=== PATIENT | female | born 1990 | race Caucasian/White ===

== ENCOUNTER 2022-07-24 20:27 | Emergency (ER) | payer MEDICAID, SELFPAY ==
[2022-07-24 20:28] VITALS: BP 134/83; PULSE 95; RESP 16; TEMP 37.3; O2SAT 95; BMI 34.9
[2022-07-24 20:50] LABS: Coronavirus 19, PCR Not Detected (NotDetected); Influenza A, PCR Not Detected (NotDetected); Influenza B, PCR Not Detected (NotDetected)
[2022-07-24 21:02] LABS: Strep Scrn Group A (Rapid) Negative (Negative)
--- NOTE | 2022-07-24 21:31 | HMH.EDURI ---
Discharge Plan Disposition Patient Disposition: Home, Self-Care Prescriptions Prescriptions: New cephalexin [cephalexin] 500 mg capsule 500 mg PO TID Qty: 21 0RF Clinical Impressions Clinical Impression: Otitis media Instructions Patient Instructions: DI for Ear Pain-Adult Discharge ED Provider: Alpesh (ED)Esequiel URI/Sore Throat HPI General Chief Complaint: Upper Respiratory Infection Stated Complaint: QUINONES, Ears Sore throat Time Seen by Provider: 07/24/22 21:31 Mode of Arrival: Ambulatory Source of Information: Patient and Medical Record Limitations: No Limitations Description of Symptoms (Recalled from ER Triage Doc. by RN): pt c/o Quinonse,lt ear pain, congestion sore thorat History of Present Illness HPI Narrative: uri sx and lt ear pain over the last few days - MD Complaint: sore throat, nasal congestion and other (ear pain) Onset (ago): day(s) Duration: intermittent Severity: moderate Able to tolerate fluids by mouth: Yes Context: sick contacts Associated symptoms: denies other symptoms Treatments prior to arrival: none Related Data Previous Rx's Medication Instructions Recorded cephalexin 500 mg capsule 500 mg PO TID #21 caps 07/24/22 Allergies Allergy/AdvReac Type Severity Reaction Status Date / Time peanut Allergy Verified 07/24/22 20:47 [facility] Disclaimer: The information contained in this section may have been updated after the patient was seen, as this information can be updated by other users. Social History Smoking Status: Never smoker alcohol intake: never current occupational status: employed Travel in the last 8 weeks: None ROS Obtained: Yes All systems reviewed & no additional complaints except as documented Physical Exam General General appearance: alert Head Head exam: normocephalic Eye Eye exam: Present PERRL and EOMI ENT ENT exam: Present mucous membranes moist Expanded ENT Exam TM/Canal exam: Left TM: erythema and effusion Throat exam: Present tonsillomegaly; Absent R peritonsillar mass or L peritonsillar mass Neck Neck exam: Present trachea midline Respiratory Respiratory exam: Present normal lung sounds bilaterally; Absent respiratory distress Cardiovascular Cardiovascular exam: Present regular rate Abdominal Exam Abdominal exam: Present soft Extremities Exam Extremities exam: Present full ROM Neurological Exam Neurological exam: Present alert, oriented X3 and CN II-XII intact; Absent motor sensory deficit Psychiatric Psychiatric exam: Present normal affect Skin Skin exam: Absent rash Medical Decision Making Medical Records Medical records reviewed: Yes I reviewed the patient's medical records. Christopher Inquiry Pt receiving controlled substance: No Vital Signs: 07/24/22 20:28 Temperature 99.1 F Temperature Source Oral Pulse Rate [Right] 95 H Respiratory Rate 16 Blood Pressure [Right Arm] 134/83 Blood Pressure Mean [Right Arm] 100 02 Sat by Pulse Oximetry 95 Lab Data Lab results reviewed: Yes I reviewed the patient's lab results. Lab Results 07/24/22 20:46: Group A Strep Rapid Negative 07/24/22 20:46: SARS-CoV-2 (PCR) Not detected, Influenza A Untype (PCR) Not detected, Influenza Type B (PCR) Not detected Orders (Tests/Meds): ORDERS Category Date Time Status Rapid PCR Covid and Flu A/B Stat Lab 07/24/22 20:46 Completed Rapid Strep Scrn Group A [Strep Scrn Group A (Rapid)] Lab 07/24/22 20:46 Completed Stat Strep Screen Confirmation Stat Micro 07/24/22 20:46 Received Medical Decision Narrative: pt with ear infection and has stable exam - no rash - will treat at this time Critical Care Time Critical Care Time Critical Care Time: No Attestation: On , the high probability of a clinically significant, sudden or life threatening deterioration of the following system(s) required my full and direct attention, intervention and personal management. The time I documented below is in addition to time
[2022-07-24 21:48] VITALS: BP 129/87; PULSE 91; RESP 16; TEMP 37.3; O2SAT 95
== END 2022-07-24 22:06 | disposition home or self-care (01) ==
LOC: ER 22:05
PROVIDERS: Emergency Provider Emergency Medicine
DX: R51.9 Headache, unspecified (principal); H66.90 Otitis media, unspecified, unspecified ear; J02.9 Acute pharyngitis, unspecified
CPT/HCPCS: 87430; 87635; 87636; 99283; 99284; C9803; U0003; U0005

== ENCOUNTER 2022-07-27 18:53 | Emergency (ER) | payer MEDICAID, SELFPAY ==
[2022-07-27 19:15] VITALS: BP 123/90; PULSE 83; RESP 20; TEMP 36.8; O2SAT 98; BMI 34.9
--- NOTE | 2022-07-27 19:18 | EXP.UTC ---
Discharge Plan Disposition Patient Disposition: Home, Self-Care Condition: Good Prescriptions Prescriptions: New methylprednisolone 4 mg Tablets,Dose Pack 4 mg PO DIRECTED Qty: 21 0RF Referrals Follow up/Referrals: Provider,Referral, MD [Primary Care Provider] - See instructions Activity Restrictions/Add. Instructions Additional Instructions/Restrictions: Drink plenty of fluids. Take tylenol or ibuprofen for pain or fever. Take the medications as directed. Follow up with your regular doctor. GO TO THE ER FOR ANY WORSENING SYMPTOMS Clinical Impressions Clinical Impression: Hand, foot and mouth disease Stand Alone Forms Stand Alone Forms: Work/School Release Instructions Patient Instructions: Hand, Foot, and Mouth Disease Discharge ED [place] [facility] [place] General Stated complaint: rash Time Seen by Provider: 07/27/22 19:18 History of Present Illness Provider Complaint: She states that for the past 2 days she has had a painful rash on her hands and feet. She also has lesions around her mouth and a sore throat. Her child currently has similar symptoms. Related Data Previous Rx's Medication Instructions Recorded methylprednisolone 4 mg tablets in 4 mg PO DIRECTED #21 tabs 07/27/22 a dose pack Allergies Allergy/AdvReac Type Severity Reaction Status Date / Time peanut Allergy Verified 07/24/22 20:47 [facility] Disclaimer: The information contained in this section may have been updated after the patient was seen, as this information can be updated by other users. Social History Smoking Status: Never smoker alcohol intake: never current occupational status: employed Travel in the last 8 weeks: None ROS Obtained: Yes All systems reviewed & no additional complaints except as documented Constitutional Constitutional: Denies chills and Denies fever(s) Eyes Eyes: Denies eye discharge ENT Ears, Nose, Mouth, and Throat: Denies dizziness, Denies otalgia and Denies sore throat Cardiovascular Cardiovascular: Denies chest pain Respiratory Respiratory: Denies shortness of breath, Denies chest congestion, Denies cough, Denies stridor and Denies wheezing Gastrointestinal Gastrointestingal: Denies nausea or vomiting Musculoskeletal Musculoskeletal: Reports system reviewed and no additional complaints, except as documented and Denies arthralgias Integumentary/Breasts Skin/Breast: Reports as per HPI and Reports rash Neurologic Neurologic: Denies dizziness and Denies paresthesias Allergic/Immunologic Allergic/Immunologic: Denies wheezing Physical Exam General General appearance: alert and in no apparent distress Head Head exam: atraumatic, normocephalic and normal inspection Eye Eye exam: Present normal appearance, PERRL and EOMI ENT ENT exam: Present normal exam, normal oropharynx, mucous membranes moist, TM's normal bilaterally and normal external ear exam Neck Neck exam: Present normal inspection, full ROM and trachea midline; Absent meningismus or lymphadenopathy Chest Chest inspection: Present normal inspection and symmetric chest wall rise; Absent tenderness Respiratory Respiratory exam: Present normal lung sounds bilaterally; Absent respiratory distress Cardiovascular Cardiovascular exam: Present regular rate and normal rhythm; Absent JVD Abdominal Exam Abdominal exam: Present soft and normal bowel sounds; Absent distention, tenderness or guarding Extremities Exam Extremities exam: Present normal inspection, full ROM and normal capillary refill; Absent calf tenderness Back Exam Back exam: Present normal inspection; Absent tenderness Neurological Exam Neurological exam: Present alert and oriented X3 Psychiatric Psychiatric exam: Present normal affect and normal mood Skin Skin exam: Present rash Lymphatic Lymphatic Findings: no adenopathy Medical Decision Making Medical Records Medical records
[2022-07-27 19:26] VITALS: BP 123/90; PULSE 83; RESP 20; TEMP 36.8; O2SAT 98
== END 2022-07-27 19:31 | disposition home or self-care (01) ==
PROVIDERS: Emergency Provider Nurse Practitioner Family
DX: B08.4 Enteroviral vesicular stomatitis with exanthem (principal)
CPT/HCPCS: 99204; 99212; G0463

== ENCOUNTER 2022-12-28 14:40 | Emergency (ER) | payer MEDICAID, SELFPAY ==
[2022-12-28 15:25] VITALS: BP 152/86; PULSE 77; RESP 20; TEMP 36.9; O2SAT 95; BMI 42.5
--- NOTE | 2022-12-28 15:28 | EXP.UTC ---
Discharge Plan Disposition Patient Disposition: Home, Self-Care Condition: Good Prescriptions Prescriptions: New clobetasol 0.05 % solution 1 applic topical BID 14 Days Qty: 50 1RF triamcinolone acetonide 0.1 % cream 1 applic topical BID PRN (Reason: itching) Qty: 80 0RF prednisone 10 mg tablet 10 mg PO DIRECTED 9 Days Qty: 21 0RF Rx Instructions: Take 4 tablets daily for 3 days, then take 2 tablets daily for 3 days, then take 1 tablet daily for 3 days, then stop. No Action methylprednisolone 4 mg Tablets,Dose Pack 4 mg PO DIRECTED Qty: 21 0RF Referrals Follow up/Referrals: Provider,Referral, MD [Primary Care Provider] - See instructions Activity Restrictions/Add. Instructions Additional Instructions/Restrictions: Don't start the oral steroids until tomorrow. Don't put the topical steroids (triamcinolone) on your face or your groin. Follow up with your regular doctor. GO TO THE ER FOR ANY WORSENING SYMPTOMS OR CONCERNS Clinical Impressions Clinical Impression: Atopic dermatitis Instructions Patient Instructions: Eczema, DI for Atopic Dermatitis-Adult Discharge ED Provider: Surya Jha [facility] [place] General Stated complaint: breaking out all over body Time Seen by Provider: 12/28/22 15:28 History of Present Illness Provider Complaint: She has generalized rash on her body and scalp. She states that she is having a flare up of her atopic dermatitis. Related Data Previous Rx's Medication Instructions Recorded methylprednisolone 4 mg tablets in 4 mg PO DIRECTED #21 tabs 07/27/22 a dose pack clobetasol 0.05 % scalp solution 1 applic topical BID 2 weeks #50 mL 12/28/22 prednisone 10 mg tablet 10 mg PO DIRECTED 9 days #21 12/28/22 tabs triamcinolone acetonide 0.1 % 1 applic topical BID PRN itching 12/28/22 topical cream #80 grams Allergies Allergy/AdvReac Type Severity Reaction Status Date / Time peanut Allergy Verified 07/24/22 20:47 [facility] Disclaimer: The information contained in this section may have been updated after the patient was seen, as this information can be updated by other users. 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 (Updated 12/28/22 @ 15:52 by Surya Jha APRN) Anemia Anxiety Depression Hypertension Social History Smoking Status: Never smoker alcohol intake: never current occupational status: employed Travel in the last 8 weeks: None ROS Obtained: Yes All systems reviewed & no additional complaints except as documented Constitutional Constitutional: Denies chills and Denies fever(s) Eyes Eyes: Denies eye discharge ENT Ears, Nose, Mouth, and Throat: Denies dizziness, Denies otalgia and Denies sore throat Cardiovascular Cardiovascular: Denies chest pain Respiratory Respiratory: Denies shortness of breath, Denies chest congestion, Denies cough, Denies stridor and Denies wheezing Gastrointestinal Gastrointestingal: Denies nausea or vomiting Musculoskeletal Musculoskeletal: Reports system reviewed and no additional complaints, except as documented and Denies arthralgias Integumentary/Breasts Skin/Breast: Reports as per HPI and Reports rash Neurologic Neurologic: Denies dizziness and Denies paresthesias Allergic/Immunologic Allergic/Immunologic: Denies wheezing Physical Exam General General appearance: alert and in no apparent distress Head Head exam: atraumatic, normocephalic and normal inspection Eye Eye exam: Present normal appearance, PERRL and EOMI ENT ENT exam: Present normal exam, normal oropharynx, mucous membranes moist, TM's normal bilaterally and normal external ear exam Neck Neck exam: Present normal inspection, full ROM and trachea midline; Absent meningismus or lymphadenopathy Chest Chest inspection: Present normal inspection and symmetric chest wall rise; Absent tenderness Respiratory Respiratory exam: Present normal lung sounds bilaterally; Absent respi
[2022-12-28 15:55] VITALS: BP 152/86; PULSE 77; RESP 20; TEMP 36.9; O2SAT 95
== END 2022-12-28 16:02 | disposition home or self-care (01) ==
PROVIDERS: Emergency Provider Nurse Practitioner Family
DX: L20.9 Atopic dermatitis, unspecified (principal); I10 Essential (primary) hypertension; F41.9 Anxiety disorder, unspecified; F32.A Depression, unspecified
CPT/HCPCS: 96372; 99212; 99214; G0463

== ENCOUNTER 2023-01-09 13:07 | Emergency (ER) | payer MEDICAID, SELFPAY ==
[2023-01-09 13:15] VITALS: BP 131/88; PULSE 78; RESP 18; TEMP 36.7; O2SAT 98; BMI 38.0
--- NOTE | 2023-01-09 13:27 | EXP.UTC ---
Discharge Plan Disposition Patient Disposition: Home, Self-Care Condition: Good Prescriptions Prescriptions: New prednisone [prednisone] 20 mg tablet 20 mg PO BID Qty: 10 0RF Eucrisa 2 % ointment 1 applic topical DAILY Qty: 60 0RF No Action clobetasol 0.05 % solution 1 applic topical BID 14 Days Qty: 50 1RF triamcinolone acetonide 0.1 % cream 1 applic topical BID PRN (Reason: itching) Qty: 80 0RF Referrals Follow up/Referrals: Provider,Referral, MD [Primary Care Provider] - See instructions Clinical Impressions Clinical Impression: Atopic dermatitis Qualifiers: Atopic dermatitis type: other Qualified Code(s): L20.89 - Other atopic dermatitis Instructions Patient Instructions: DI for Atopic Dermatitis-Adult Discharge [facility] [facility] [place] General Stated complaint: cough, rash Mode of Arrival: Ambulatory Source of Information: Patient Limitations: No Limitations Time Seen by Provider: 01/09/23 13:27 Description of Symptoms (Recalled from Triage Doc. by RN): Pt has rash all over body. She stated that she has productive cough. HEENT Symptoms (Recalled from RN notes): Yes Resp Symptoms (Recalled from RN notes): No Skin Symptoms (Recalled from RN notes): Yes MS Symptoms (Recalled from RN notes): No Functional Status (Recalled from RN notes): n/a History of Present Illness Provider Complaint: 32 yr old female presents for cough and rash all over her body. pt states she has atopic dermatitis and she has these flares freq. 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 Related Data Previous Rx's Medication Instructions Recorded clobetasol 0.05 % scalp solution 1 applic topical BID 2 weeks #50 mL 12/28/22 triamcinolone acetonide 0.1 % 1 applic topical BID PRN itching 12/28/22 topical cream #80 grams crisaborole 2 % topical ointment 1 applic topical DAILY #60 grams 01/09/23 (Eucrisa) prednisone 20 mg tablet 20 mg PO BID #10 tabs 01/09/23 Allergies Allergy/AdvReac Type Severity Reaction Status Date / Time peanut Allergy Verified 01/09/23 13:24 Worker's Comp Is this a Worker's Comp case?: No [facility] Disclaimer: The information contained in this section may have been updated after the patient was seen, as this information can be updated by other users. 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) Smoking Status: Never smoker alcohol intake: never current occupational status: employed Travel in the last 8 weeks: None ROS Obtained: Yes All systems reviewed & no additional complaints except as documented Constitutional Constitutional: Reports system reviewed and no additional complaints, except as documented and Reports as per HPI Eyes Eyes: Reports system reviewed and no additional complaints, except as documented and Reports as per HPI ENT Ears, Nose, Mouth, and Throat: Reports system reviewed and no additional complaints, except as documented and Reports as per HPI Cardiovascular Cardiovascular: Reports system reviewed and no additional complaints, except as documented Respiratory Respiratory: Reports system reviewed and no additional complaints, except as documented, Reports as per HPI, Reports cough and Reports non-productive cough Gastrointestinal Gastrointestingal: Reports system reviewed and no additional complaints, except as documented Integumentary/Breasts Skin/Breast: Reports system reviewed and no additional complaints, except as documented, Reports as per HPI and Reports rash Endocrine Endocrine: Reports system reviewed and no additional complaints, except as documented Allergic/Immunologic Allergic/Immunologic: Reports system reviewed and no additional complaints, except as documented Physical Exam General General appearance: alert and in no apparent distress Head H
[2023-01-09 13:38] VITALS: BP 131/88; PULSE 78; RESP 18; TEMP 36.7; O2SAT 98
== END 2023-01-09 13:38 | disposition home or self-care (01) ==
PROVIDERS: Emergency Provider Nurse Practitioner Family
DX: L20.89 Other atopic dermatitis (principal); R05.9 Cough, unspecified; I10 Essential (primary) hypertension
CPT/HCPCS: 99212; 99214; G0463

== ENCOUNTER 2023-01-20 20:01 | Emergency (ER) | payer MEDICAID, SELFPAY ==
[2023-01-20 20:02] VITALS: BP 118/61; PULSE 105; RESP 20; TEMP 37.6; O2SAT 99; BMI 42.5
[2023-01-20 20:41] LABS: Basophils # 0.1 K/mm3 (0-0.2); Basophils % 0.3 % (0.1-2.0); Eosinophils # 0.2 K/mm3 (0.0-0.4); Eosinophils % 1.6 % (0.1-12.0); Hematocrit 38.8 % (37.0-47.0); Hemoglobin 13.6 g/dL (12.2-16.2); Lymphocytes # 1.8 K/mm3 (0.7-4.5); Lymphocytes % 13.9 % (10-50); Mean Corpuscular HGB Conc 35.2 g/dL (31.8-35.4); Mean Corpuscular Hemoglobin 28.4 pg (27.0-31.2); Mean Corpuscular Volume 80.6 fl (81-99); Mean Platelet Volume 8.2 fl (7.4-10.4); Monocytes # 0.9 K/mm3 (0.1-1.0); Neutrophils # 10.3 K/mm3 (1.8-7.8); Neutrophils % 77.2 % (37.0-80.0); Platelet Count 186 K/mm3 (142-424); Red Blood Count 4.81 M/mm3 (4.20-5.40); Red Cell Distribution Width 15.6 % (11.5-17.5); White Blood Count 13.3 K/mm3 (4.8-10.8)
[2023-01-20 20:56] LABS: Alanine Aminotransferase 18 U/L (12-78); Albumin Level 4.1 g/dl (3.5-5.0); Albumin/Globulin Ratio 1.1 (1.1-1.8); Alkaline Phosphatase 66 U/L (38-126); Anion Gap 13.7 mEq/L (5-15); Aspartate Amino Transferase 26 U/L (14-36); Bilirubin,Total 0.4 mg/dl (0.2-1.3); Blood Urea Nitrogen 7 mg/dl (7-17); Carbon Dioxide 21 mmol/L (22.0-30.0); Chloride 101 mmol/L (98-107); Creatinine Clearance Estimated 103 mL/min (50-200); Estimated Glomerular Filt Rate 117 ml/min (>60); GFR (African American) 141 ML/MIN (>60); Globulin 3.7 g/dL (1.3-3.2); Glucose 127 mg/dl (74-100); Lipase 33 U/L (23-300); Potassium 3.7 mmoL/L (3.5-5.1); Sodium 132 mmol/L (136-145); Total Protein,Serum 7.8 g/dl (6.3-8.2)
[2023-01-20 21:06] LABS: HCG Qualitative, Serum Negative (Negative)
--- NOTE | 2023-01-20 21:28 | PC.NURSE ---
Pt given crakers and water for PO challenge, unable to keep them down.
--- NOTE | 2023-01-20 21:41 | HMH.EDGENADL ---
Discharge Plan Disposition Patient Disposition: Home, Self-Care Condition: Good Prescriptions Prescriptions: New ondansetron 4 mg tablet,disintegrating 4 mg PO Q8H PRN (Reason: nausea and vomiting) 4 Days Qty: 12 0RF No Action clobetasol 0.05 % solution 1 applic topical BID 14 Days Qty: 50 1RF triamcinolone acetonide 0.1 % cream 1 applic topical BID PRN (Reason: itching) Qty: 80 0RF prednisone [prednisone] 20 mg tablet 20 mg PO BID Qty: 10 0RF Eucrisa 2 % ointment 1 applic topical DAILY Qty: 60 0RF Referrals Follow up/Referrals: Provider,Referral, MD [Primary Care Provider] - See instructions Activity Restrictions/Add. Instructions Additional Instructions/Restrictions: You were evaluated in the emergency department today. At this time, we feel that your symptoms are related to infectious gastroenteritis. Please make sure that you are staying hydrated at home. Eat a bland diet. Take Tylenol and ibuprofen at home as needed for pain. business support specialist the prescription for Zofran and take as needed for nausea and vomiting. Return to the emergency department for new or worsening symptoms. Clinical Impressions Clinical Impression: Acute gastroenteritis, Headache Stand Alone Forms Stand Alone Forms: Work/School Release Instructions Patient Instructions: DI for Diarrhea and Traveler's Diarrhea -- Adult, DI for Nausea -- Adult Discharge ED Provider: Shona Mota General Adult HPI General Chief complaint: Nausea/Vomiting/Diarrhea Stated complaint: diarrhea, vomiting, h/a Time Seen by Provider: 01/20/23 20:20 Mode of Arrival: Ambulatory Source of Information: Patient Limitations: No Limitations Description of Symptoms (Recalled from ER Triage Doc. by RN): Pt presents with N/V/D, headache, and abdominal cramping that started last night. Recently treated for URI with abx/steroids. History of Present Illness HPI narrative: This patient is a 32-year-old female who denies significant past medical history presenting to the emergency department for evaluation with concern for nausea, vomiting, diarrhea that started yesterday. She states that she has not been able to keep anything down. She states she is also developing a headache. She notes abdominal cramping but no specific abdominal pain. Emesis is nonbloody nonbilious, and diarrhea is nonbloody. Nothing seems to make her symptoms better or worse at home. Related Data Previous Rx's Medication Instructions Recorded clobetasol 0.05 % scalp solution 1 applic topical BID 2 weeks #50 mL 12/28/22 triamcinolone acetonide 0.1 % 1 applic topical BID PRN itching 12/28/22 topical cream #80 grams crisaborole 2 % topical ointment 1 applic topical DAILY #60 grams 01/09/23 (Eucrisa) prednisone 20 mg tablet 20 mg PO BID #10 tabs 01/09/23 ondansetron 4 mg disintegrating 4 mg PO Q8H PRN nausea and 01/20/23 tablet vomiting 4 days #12 tabs Allergies Allergy/AdvReac Type Severity Reaction Status Date / Time peanut Allergy Verified 01/09/23 13:24 [facility] Disclaimer: The information contained in this section may have been updated after the patient was seen, as this information can be updated by other users. 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 Anemia Anxiety Depression Hypertension Social History Smoking Status: Never smoker alcohol intake: never current occupational status: employed Travel in the last 8 weeks: None ROS Obtained: Yes All systems reviewed & no additional complaints except as documented Physical Exam General General appearance: alert and in no apparent distress Head Head exam: atraumatic and normocephalic Eye Eye exam: Present normal appearance, PERRL and EOMI ENT ENT exam: Present normal exam, normal oropharynx, mucous membranes moist and normal external ear exam Neck Neck exam: Present normal inspection, full ROM and trachea
[2023-01-20 22:16] VITALS: BP 103/46; PULSE 90; RESP 18; O2SAT 97
[2023-01-20 22:51] VITALS: BP 127/64; PULSE 90; RESP 20; TEMP 36.9; O2SAT 97
== END 2023-01-20 23:00 | disposition home or self-care (01) ==
PROVIDERS: Emergency Provider Emergency Medicine; PCP Nurse Practitioner Adult Health
DX: K52.9 Noninfective gastroenteritis and colitis, unspecified (principal); R51.9 Headache, unspecified; E87.1 Hypo-osmolality and hyponatremia; R11.2 Nausea with vomiting, unspecified; R00.0 Tachycardia, unspecified; I10 Essential (primary) hypertension; E66.9 Obesity, unspecified
CPT/HCPCS: 80053; 83690; 84703; 85025; 96361; 96374; 96375; 96376; 99284; J0131; J2405

== ENCOUNTER 2023-02-11 10:31 | Emergency (ER) | payer MEDICAID, SELFPAY ==
[2023-02-11 10:55] VITALS: BP 132/72; PULSE 86; RESP 20; TEMP 36.7; O2SAT 97; BMI 41.1
[2023-02-11 11:12] VITALS: BP 132/72; PULSE 86; RESP 20; TEMP 36.7; O2SAT 97
--- NOTE | 2023-02-11 11:50 | EXP.UTC ---
Discharge Plan Disposition Patient Disposition: Home, Self-Care Condition: Good Prescriptions Prescriptions: New prednisone [prednisone] 20 mg tablet 20 mg PO BID 5 Days Qty: 10 0RF No Action clobetasol 0.05 % solution 1 applic topical BID 14 Days Qty: 50 1RF triamcinolone acetonide 0.1 % cream 1 applic topical BID PRN (Reason: itching) Qty: 80 0RF prednisone [prednisone] 20 mg tablet 20 mg PO BID Qty: 10 0RF Eucrisa 2 % ointment 1 applic topical DAILY Qty: 60 0RF ondansetron 4 mg tablet,disintegrating 4 mg PO Q8H PRN (Reason: nausea and vomiting) 4 Days Qty: 12 0RF Referrals Follow up/Referrals: Provider,Referral, MD [Primary Care Provider] - See instructions Activity Restrictions/Add. Instructions Additional Instructions/Restrictions: Start oral steriods tomorrow Follow up with dermatology as scheduled Use topical Triacinolone as prescribed Follow up with your Family Doctor REturn if needed Clinical Impressions Clinical Impression: Atopic dermatitis Qualifiers: Atopic dermatitis type: unspecified Qualified Code(s): L20.9 - Atopic dermatitis, unspecified Instructions Patient Instructions: DI for Atopic Dermatitis-Adult Discharge ED Provider: Ana Cota [facility] General Stated complaint: atopic exema flare up Mode of Arrival: Ambulatory Source of Information: Patient Limitations: No Limitations Time Seen by Provider: 02/11/23 11:50 Description of Symptoms (Recalled from Triage Doc. by RN): PATIENT C/O ECZEMA FLARE UP X 2 DAYS HEENT Symptoms (Recalled from RN notes): No Resp Symptoms (Recalled from RN notes): No Skin Symptoms (Recalled from RN notes): Yes MS Symptoms (Recalled from RN notes): No Functional Status (Recalled from RN notes): WNL History of Present Illness Provider Complaint: Patient states that she has a hx of eczema and atopic dermatitis States that she is broke out and itching all over so she came in to see if she could get a steriod shot and some steriods like she normally gets when she has a flare up Related Data Previous Rx's Medication Instructions Recorded clobetasol 0.05 % scalp solution 1 applic topical BID 2 weeks #50 mL 12/28/22 triamcinolone acetonide 0.1 % 1 applic topical BID PRN itching 10/16/23 topical cream #80 grams crisaborole 2 % topical ointment 1 applic topical DAILY #60 grams 01/09/23 (Eucrisa) prednisone 20 mg tablet 20 mg PO BID #10 tabs 01/09/23 ondansetron 4 mg disintegrating 4 mg PO Q8H PRN nausea and 01/20/23 tablet vomiting 4 days #12 tabs prednisone 20 mg tablet 20 mg PO BID 5 days #10 tabs 02/11/23 Allergies Allergy/AdvReac Type Severity Reaction Status Date / Time peanut Allergy Verified 01/09/23 13:24 Worker's Comp Is this a Worker's Comp case?: No [facility] Disclaimer: The information contained in this section may have been updated after the patient was seen, as this information can be updated by other users. 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 (Updated 02/11/23 @ 11:59 by Ana Cota APRN) Anemia Anxiety Asthma Depression Hypertension Social History Smoking Status: Never smoker alcohol intake: never current occupational status: employed Travel in the last 8 weeks: None ROS Obtained: Yes All systems reviewed & no additional complaints except as documented and Yes Systems reviewed as appropriate & no additional complaints except as documented Constitutional Constitutional: Reports system reviewed and no additional complaints, except as documented, Reports as per HPI, Denies fever(s) and Denies headache(s) ENT Ears, Nose, Mouth, and Throat: Reports system reviewed and no additional complaints, except as documented, Reports as per HPI and Denies headache(s) Cardiovascular Cardiovascular: Reports system reviewed and no additional complaints, except as documented and Reports as per HPI Respiratory Respiratory: Reports system reviewed and no niraj
[2023-02-11 12:18] LABS: UTC Pregnancy Test, Urine Negative (Negative)
== END 2023-02-11 12:19 | disposition home or self-care (01) ==
PROVIDERS: Emergency Provider Nurse Practitioner
DX: L20.9 Atopic dermatitis, unspecified (principal); L30.9 Dermatitis, unspecified; J45.909 Unspecified asthma, uncomplicated; I10 Essential (primary) hypertension
CPT/HCPCS: 81025; 96372; 99212; 99214; G0463

== ENCOUNTER 2023-02-15 10:13 | Emergency (ER) | payer MEDICAID, SELFPAY ==
[2023-02-15 10:31] VITALS: BP 167/108; PULSE 98; RESP 20; TEMP 36.7; O2SAT 96; BMI 42.5
--- NOTE | 2023-02-15 10:42 | PC.NURSE ---
covid/flu swab sent to lab
--- NOTE | 2023-02-15 10:43 | HMH.EDGENADL ---
Discharge Plan Disposition Patient Disposition: Home, Self-Care Condition: Good Prescriptions Prescriptions: New albuterol sulfate 90 mcg/actuation aerosol powdr breath activated 2 inh inhalation Q6H PRN (Reason: shortness of breath or wheezing) Qty: 1 0RF prednisone 50 mg tablet 50 mg PO DAILY 5 Days Qty: 5 0RF No Action clobetasol 0.05 % solution 1 applic topical BID 14 Days Qty: 50 1RF Eucrisa 2 % ointment 1 applic topical DAILY Qty: 60 0RF Referrals Follow up/Referrals: Provider,Referral, MD [Primary Care Provider] - See instructions Activity Restrictions/Add. Instructions Additional Instructions/Restrictions: You were evaluated in the emergency department today. 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 You are already given a dose of steroids here today, so continuous pickling line pickler helper the prescription for steroids and start tomorrow. Take Tylenol and ibuprofen at home as needed for pain and fevers. Stay hydrated. Return to the emergency department for new or worsening symptoms. Clinical Impressions Clinical Impression: Viral URI with cough, Asthma exacerbation Instructions Patient Instructions: DI for Asthma -- Adult, DI for Viral Upper Respiratory Infection -- Adult Discharge ED Provider: Shona Mota General Adult HPI General Chief complaint: Shortness of Breath/Dyspnea Stated complaint: cough, sneezing, wheezing Time Seen by Provider: 02/15/23 10:24 Mode of Arrival: Ambulatory Source of Information: Patient Limitations: No Limitations Description of Symptoms (Recalled from ER Triage Doc. by RN): Pt. states she has had cough, congestion, runny nose, and wheezing since last night. History of Present Illness HPI narrative: This patient is a 32-year-old female with a history of asthma presenting to the emergency department for evaluation of cough, wheezing, congestion, and runny nose that started last night. Her 2 children at home are also sick. She has used an inhaler at home with minimal improvement. No other concerns noted at this time. Related Data Previous Rx's Medication Instructions Recorded clobetasol 0.05 % scalp solution 1 applic topical BID 2 weeks #50 mL 12/28/22 crisaborole 2 % topical ointment 1 applic topical DAILY #60 grams 01/09/23 (Eucrisa) albuterol sulfate 90 mcg/actuation 2 inh inhalation Q6H PRN shortness 02/15/23 breath activated powder inhaler of breath or wheezing #1 ea prednisone 50 mg tablet 50 mg PO DAILY 5 days #5 tabs 02/15/23 Allergies Allergy/AdvReac Type Severity Reaction Status Date / Time peanut Allergy Verified 02/15/23 10:30 [facility] Disclaimer: The information contained in this section may have been updated after the patient was seen, as this information can be updated by other users. 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 Anemia Anxiety Asthma Depression Hypertension Surgical History No significant past surgical history Family History Other No significant family history Social History Smoking Status: Never smoker alcohol intake: never current occupational status: employed Travel in the last 8 weeks: None ROS Obtained: Yes All systems reviewed & no additional complaints except as documented Physical Exam General General appearance: alert and in no apparent distress Head Head exam: atraumatic and normocephalic Eye Eye exam: Present normal appearance, PERRL and EOMI ENT ENT exam: Present normal exam, normal oropharynx, mucous membranes moist and normal external ear exam Neck Neck exam: Present normal inspection, full ROM and trachea midline; Absent tenderness Chest Chest inspection: Present normal inspection and symmetric chest wall rise; Absent tenderness Respiratory Respiratory exam: Present wheezes; Absent respi
[2023-02-15 10:45] LABS: Coronavirus 19, PCR Not Detected (NotDetected); Influenza A, PCR Not Detected (NotDetected); Influenza B, PCR Not Detected (NotDetected)
[2023-02-15 10:51] VITALS: PULSE 91; PULSE 95
[2023-02-15 12:33] VITALS: BP 159/90; PULSE 88; RESP 18; TEMP 37.3; O2SAT 98
== END 2023-02-15 12:39 | disposition home or self-care (01) ==
PROVIDERS: Emergency Provider Emergency Medicine
DX: J45.901 Unspecified asthma with (acute) exacerbation (principal); J06.9 Acute upper respiratory infection, unspecified; I10 Essential (primary) hypertension; F32.A Depression, unspecified; F41.9 Anxiety disorder, unspecified
CPT/HCPCS: 87636; 99283

== ENCOUNTER 2023-03-11 00:52 | Emergency (ER) | payer MEDICAID, SELFPAY ==
[2023-03-11 00:54] VITALS: BP 139/86; PULSE 83; RESP 18; TEMP 36.5; O2SAT 97; BMI 40.2
--- NOTE | 2023-03-11 01:04 | PC.NURSE ---
in room talking with patient at this time.
--- NOTE | 2023-03-11 01:07 | XR_ITS ---
PROCEDURE INFORMATION: Exam: XR Right Hip Exam date and time: 03/11/2023 1:37 AM Age: 32 years old Clinical indication: Injury or trauma; Blunt trauma (contusions or hematomas); Right; Hip; Patient HX: Fall 2 days ago down a hill; Additional info: Fall, hip pain TECHNIQUE: Imaging protocol: Radiologic exam of the right hip. Views: 2 or 3 views hip with pelvis when performed. Total images: 3 COMPARISON: No relevant prior studies available. FINDINGS: Bones/joints: No acute fracture or joint dislocation. Pelvic ring is maintained. Joint spaces are appropriate for age. No concerning bone lesions or calcifications. Corticated ossicle at the left lesser trochanter compatible with remote injury. Soft tissues: Unremarkable soft tissues. Vasculature: Pelvic phleboliths. IMPRESSION: Negative right hip and pelvis.
--- NOTE | 2023-03-11 01:09 | XR_ITS ---
PROCEDURE INFORMATION: Exam: XR Lumbosacral Spine Exam date and time: 03/11/2023 1:39 AM Age: 32 years old Clinical indication: Injury or trauma; Blunt trauma (contusions or hematomas); Patient HX: Fall 2 days ago down a hill; Additional info: Fall, pain TECHNIQUE: Imaging protocol: Radiologic exam of the lumbosacral spine. Views: 2 or 3 views. Total images: 3 COMPARISON: CR XR HIP RT 2-3V W/PELVIS 03/11/2023 1:37 AM FINDINGS: Bones/joints: Five non rib-bearing lumbar vertebral segments. Vertebral body height and alignment is preserved. Minor levocurvature is likely positional. Mild degenerative disc disease L4-L5 and L5-S1. Mild degenerate facet joint spondylosis L4-L5 and L5-S1. No concerning bone lesions. Unremarkable sacrum and SI joints. Facet joints are appropriately aligned. Soft tissues: Unremarkable soft tissues. Gastrointestinal tract: Nonobstructive bowel gas pattern. IMPRESSION: 1. No acute lumbar fracture or traumatic subluxation. 2. Mild degenerative disc disease and facet joint spondylosis L4-L5 and L5-S1.
[2023-03-11] MEDS: HYDROCORTISONE SOD SUCCINATE 100MG VIAL 100 MG IM (01:21)
--- NOTE | 2023-03-11 01:21 | ED_ITS ---
Discharge Plan Disposition Patient Disposition: Home, Self-Care Condition: Good Prescriptions Prescriptions: New methocarbamol 500 mg tablet 500 mg PO Q8H PRN (Reason: pain) Qty: 20 0RF prednisone 10 mg tablet 10 mg PO DIRECTED Qty: 35 0RF Rx Instructions: see taper instructions Take 40 mg (4 tabs) daily for 5 days; THEN take 20 mg (2 tabs) daily for 5 days; THEN take 10 mg (1 tab) daily for 5 days lidocaine [Lidoderm] 5 % adhesive patch,medicated 1 patch topical DAILY Qty: 15 0RF Rx Instructions: leave on most painful area for up to 12 hrs No Action albuterol sulfate 90 mcg/actuation aerosol powdr breath activated 2 inh inhalation Q6H PRN (Reason: shortness of breath or wheezing) Qty: 1 0RF prednisone 50 mg tablet 50 mg PO DAILY 5 Days Qty: 5 0RF clobetasol 0.05 % solution 1 applic topical BID 14 Days Qty: 50 1RF Eucrisa 2 % ointment 1 applic topical DAILY Qty: 60 0RF Referrals Follow up/Referrals: Provider,Referral, MD [Primary Care Provider] - See instructions Activity Restrictions/Add. Instructions Additional Instructions/Restrictions: You were evaluated in the emergency department today. 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 I also recommend close follow-up with your primary care provider and dermatology for further evaluation and management. 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 Take Tylenol and ibuprofen every 4-6 hours as needed in addition to these medications for your hip pain. Return to the emergency department for new or worsening symptoms. Clinical Impressions Clinical Impression: Eczema, Acute pain of right hip Stand Alone Forms Stand Alone Forms: Work/School Release Instructions Patient Instructions: DI for Acute Pain -- Adult, DI for Atopic Dermatitis- Adult, DI for Hip Pain Discharge ED Provider: Shona Mota Adult HPI General Chief complaint: PAIN Stated complaint: back pain, eczema Time Seen by Provider: 03/11/23 00:55 Mode of Arrival: Ambulatory Source of Information: Patient Limitations: No Limitations Description of Symptoms (Recalled from ER Triage Doc. by RN): Patient reports a mechanical fall at home in the yard 2 days ago with landing on right side. Patient has bruising noted to right buttock and pain to right hip 8/10. Patient took 500mg of tylenol. Patient also reports increasingly worsening eczema that is on hands, elbows, scalp, knees, and feet that is causing significant pain. History of Present Illness HPI narrative: This patient is a 32-year-old female with a history of asthma and eczema presenting to the emergency department for evaluation with concern for right hip pain after a fall 2 days ago as well as an eczema flareup. She states that she fell in the yard while slipping on wet grass running down a hill, landing on her right hip. She noted bruising to her right buttock and states that she has pain in her right buttock that radiates down the back of her right leg. No numbness, tingling, saddle anesthesia, incontinence, retention, or other concerns. No significant back pain. She notes that she is having an acute flare of eczema that is affecting her hands, elbows, scalp, knees, and feet. She states that typically she requires a steroid taper once he gets to this point. 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 No other concerns noted at this time. No head injury, loss of consciousness, or other issues. No fevers or mucosal involvement of the rash. Related Data Previous Rx's Medication Instructions Recorded clobetasol 0.05 % scalp solution 1 applic topical BID 2 weeks #50 mL 12/28/22 crisaborole 2 % topical ointment 1 applic topical DAILY #60 grams 01/09/23 (Eucrisa) albuterol sulfate 90 mcg/actuation 2 inh inhalation Q6H PRN shortness 02/15/23 breath activated powder inhaler of breath or wheezing #1 ea prednisone 50 mg tablet 50 mg PO DAILY 5 days #5 tabs 02/15/23 lidocaine 5 % topical patch 1 patch topical DAILY #15 ea 03/11/23 (Lidoderm) methocarbamol 500 mg tablet 500 mg PO Q8H PRN pain #20 tabs 03/11/23 prednisone 10 mg tablet 10 mg PO DIRECTED #35 tabs 03/11/23 Allergies Allergy/AdvReac Type Severity Reaction Status Date / Time peanut Allergy Verified 02/15/23 10:30 [facility] Disclaimer: The information contained in this section may have been updated after the patient was seen, as this information can be updated by other users. 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 Anemia Anxiety Asthma Depression Hypertension Surgical History No significant past surgical history Family History Other No significant family history Social History Smoking Status: Never smoker alcohol intake: never current occupational status: employed Travel in the last 8 weeks: None ROS Obtained: Yes All systems reviewed & no additional complaints except as documented Physical Exam General General appearance: alert, in no apparent distress and obese Head Head exam: atraumatic and normocephalic Eye Eye exam: Present normal appearance, PERRL and EOMI ENT ENT exam: Present normal exam, normal oropharynx, mucous membranes moist and normal external ear exam Neck Neck exam: Present normal inspection, full ROM and trachea midline; Absent tenderness Chest Chest inspection: Present normal inspection and symmetric chest wall rise; Absent tenderness Respiratory Respiratory exam: Present normal lung sounds bilaterally; Absent respiratory distress, wheezes, stridor or accessory muscle use Cardiovascular Cardiovascular exam: Present regular rate and normal rhythm Abdominal Exam Abdominal exam: Present soft; Absent distention, tenderness or guarding Extremities Exam Extremities exam: Present full ROM, tenderness (R posterior hip/gluteal region TTP; all compartments soft, neurovascularly intact distally) and normal capillary refill; Absent edema Back Exam Back exam: Present normal inspection, full ROM and paraspinal tenderness (Right- sided paraspinal tenderness in lumbar spine); Absent vertebral tenderness (No midline vertebral tenderness) Neurological Exam Neurological exam: Present alert, oriented X3, CN II-XII intact and normal gait; Absent motor sensory deficit Psychiatric Psychiatric exam: Present normal affect and normal mood Skin Skin exam: Present warm, dry and rash (Eczematous rash involving the scalp, elbow creases, hands, and various other areas without concerning for overlying infection. No purulence or other concerns. No skin sloughing or Nikolsky sign) Medical Decision Making Medical Records Medical records reviewed: Yes I reviewed the patient's medical records. Christopher Inquiry Pt receiving controlled substance: No Vital Signs: 03/11/23 00:54 03/11/23 02:45 Temperature 97.7 F 97.7 F Temperature Source Oral Oral Pulse Rate 87 Pulse Rate [Left Radial] 83 Respiratory Rate 18 16 Blood Pressure 130/71 Blood Pressure [Right Arm] 139/86 Blood Pressure Mean [Right Arm] 103 Blood Pressure Source Automatic Cuff Blood Pressure Source [Right Arm] Automatic Cuff Blood Pressure Position Sitting Blood Pressure Position [Right Arm] Sitting 02 Sat by Pulse Oximetry 97 Oxygen Delivery Method Room Air Room Air Lab Data Lab results reviewed: Yes I reviewed the patient's lab results. Lab Results 03/11/23 00:59: Urine HCG, Qual Negative Orders (Tests/Meds): ED MEDICATIONS Discontinued Medications Generic Name Dose Route Start Last Admin Trade Name Negrita PRN Reason Stop Dose Admin Acetaminophen 500 mg 03/11/23 01:07 03/11/23 01:22 Acetaminophen 500mg Tab PO 03/11/23 01:08 500 mg ONCE ONE Administration Hydrocortisone Sodium Succinate 100 mg 03/11/23 01:07 03/11/23 01:21 Hydrocortisone Sod Succinate 100mg Vial IM 03/11/23 01:08 100 mg ONCE ONE Administration Ibuprofen 800 mg 03/11/23 01:07 03/11/23 01:22 Ibuprofen 400 Mg Tablet PO 03/11/23 01:08 800 mg ONCE ONE Administration Lidocaine 1 each 03/11/23 01:07 03/11/23 01:22 Lidocaine 5% Transdermal Patch TP 03/11/23 01:08 1 each ONCE ONE Administration ORDERS Category Date Time Status XR hip RT 2-3V w/pelvis Stat Exams 03/11/23 01:07 Completed XR lumbar spine 2-3V Stat Exams 03/11/23 01:09 Completed Urine , HCG Qual. Stat Lab 03/11/23 00:59 Completed Medical Decision Narrative: In summary, this patient is a 32-year-old female presenting to the Emergency Department for evaluation of right hip pain after a fall 2 days ago as well as eczematous rash. Differential diagnoses considered include but are not limited to fracture, contusion, strain/sprain, neurovascular injury, sciatica, eczema. Ruling out the most morbid conditions drove assessment. It should be noted patient's history includes eczema and asthma which are not at goal therapy. This complicates all aspects of care by increasing patient's risk for morbidity. I reviewed patient's past medical records and noted multiple previous evaluations for asthma and atopic dermatitis in [facility] and here in the past. On exam, patient is ambulatory without significant issue. She has tenderness to palpation of her right gluteal region, but no significant midline vertebral tenderness or bony tenderness. I feel she likely has musculoskeletal strain/sprain without acute fracture given that she is ambulatory without issue and exam is reassuring. X-rays of the lumbar spine, right hip, and pelvis were obtained to further evaluate. Given her eczematous rash and eczema flare, patient was given a shot of hydrocortisone at her request, she states that she always requires a shot for initial symptomatic improvement. She states she typically is prescribed a steroid taper, so I prescribed her oral prednisone. I do not feel that other workup or evaluation of her rash is indicated at this time. He was given oral Tylenol, ibuprofen, and topical lidocaine patch for symptomatic improvement of pain. I independently interpreted x-rays prior to the radiologist read and noted no acute fracture, dislocation, or other concerns. Please see their read for final interpretation. On reassessment, the patient is resting comfortably with improvement in her symptoms after administration of interventions as above. She remains neurovascularly intact. At this time, feel she is appropriate for discharge with instructions for supportive management of musculoskeletal strain/sprain as well as eczema flare. She was given prescriptions for Lidoderm patches, Robaxin, and prednisone taper. She is given instructions for close patient follow-up, strict return precautions, and she was discharged in stable condition after all questions were answered. Critical Care Critical Care Time Critical Care Time: No
[2023-03-11] MEDS: LIDOCAINE 5% TRANSDERMAL PATCH 1 EACH TP (01:22)
[2023-03-11] MEDS: IBUPROFEN 400 MG TABLET 800 MG PO (01:22)
[2023-03-11] MEDS: ACETAMINOPHEN 500MG TAB 500 MG PO (01:22)
[2023-03-11 01:26] LABS: Urine Pregnancy, HCG Qual. Negative (Negative)
[2023-03-11 02:45] VITALS: BP 130/71; PULSE 87; RESP 16; TEMP 36.5; O2SAT 98
== END 2023-03-11 02:48 | disposition home or self-care (01) ==
PROVIDERS: Emergency Provider Emergency Medicine
DX: M25.551 Pain in right hip (principal); L30.9 Dermatitis, unspecified; W17.81XA Fall down embankment (hill), initial encounter; J45.909 Unspecified asthma, uncomplicated; I10 Essential (primary) hypertension
CPT/HCPCS: 72100; 73502; 81025; 96372; 99284

== ENCOUNTER 2023-04-13 15:08 | Emergency (ER) | payer MEDICAID, SELFPAY ==
[2023-04-13 15:15] VITALS: BP 134/67; PULSE 71; RESP 20; TEMP 36.8; O2SAT 96; BMI 40.6
--- NOTE | 2023-04-13 15:22 | EXP.UTC ---
Discharge Plan Disposition Patient Disposition: Home, Self-Care Condition: Good Prescriptions Prescriptions: New prednisone 10 mg tablets,dose pack See Rx Instructions .ROUTE .COMPLEX Qty: 21 0RF Rx Instructions: Take as directed on package instructions No Action albuterol sulfate 90 mcg/actuation aerosol powdr breath activated 2 inh inhalation Q6H PRN (Reason: shortness of breath or wheezing) Qty: 1 0RF prednisone 50 mg tablet 50 mg PO DAILY 5 Days Qty: 5 0RF methocarbamol 500 mg tablet 500 mg PO Q8H PRN (Reason: pain) Qty: 20 0RF prednisone 10 mg tablet 10 mg PO DIRECTED Qty: 35 0RF Rx Instructions: see taper instructions Take 40 mg (4 tabs) daily for 5 days; THEN take 20 mg (2 tabs) daily for 5 days; THEN take 10 mg (1 tab) daily for 5 days lidocaine [Lidoderm] 5 % adhesive patch,medicated 1 patch topical DAILY Qty: 15 0RF Rx Instructions: leave on most painful area for up to 12 hrs clobetasol 0.05 % solution 1 applic topical BID 14 Days Qty: 50 1RF Eucrisa 2 % ointment 1 applic topical DAILY Qty: 60 0RF Referrals Follow up/Referrals: Luz Maria Simon MD [Referring] - See instructions Abner Hall JR, APRN [Primary Care Provider] - See instructions Activity Restrictions/Add. Instructions Additional Instructions/Restrictions: Continue using your shampoo and ointment/lotions as prescribed Follow up with Dermatology Take Prednisone pack as directed Follow up with your Family Doctor Clinical Impressions Clinical Impression: Atopic dermatitis Qualifiers: Atopic dermatitis type: unspecified Qualified Code(s): L20.9 - Atopic dermatitis, unspecified Instructions Patient Instructions: DI for Atopic Dermatitis-Adult, Eczema Discharge ED Provider: Ana Cota [facility] General Stated complaint: eczema flare-up Mode of Arrival: Ambulatory Source of Information: Patient Limitations: No Limitations Time Seen by Provider: 04/13/23 15:22 Description of Symptoms (Recalled from Triage Doc. by RN): PATIENT C/O ECZEMA FLARE UP THAT STARTED 4 DAYS AGO HEENT Symptoms (Recalled from RN notes): No Resp Symptoms (Recalled from RN notes): No Skin Symptoms (Recalled from RN notes): Yes MS Symptoms (Recalled from RN notes): No Functional Status (Recalled from RN notes): WNL History of Present Illness Provider Complaint: Patient states that she has a hx of atopic dermatitis States that she has been using her creams but it hasnt helped much on her hands, feet and scalp States that sometimes when this happens sometimes she has to get a steriod taper pack to help clear it up Related Data Previous Rx's Medication Instructions Recorded clobetasol 0.05 % scalp solution 1 applic topical BID 2 weeks #50 mL 12/28/22 crisaborole 2 % topical ointment 1 applic topical DAILY #60 grams 01/09/23 (Eucrisa) albuterol sulfate 90 mcg/actuation 2 inh inhalation Q6H PRN shortness 02/15/23 breath activated powder inhaler of breath or wheezing #1 ea prednisone 50 mg tablet 50 mg PO DAILY 5 days #5 tabs 02/15/23 lidocaine 5 % topical patch 1 patch topical DAILY #15 ea 03/11/23 (Lidoderm) methocarbamol 500 mg tablet 500 mg PO Q8H PRN pain #20 tabs 03/11/23 prednisone 10 mg tablet 10 mg PO DIRECTED #35 tabs 03/11/23 prednisone 10 mg tablets in a dose See Rx Instructions PO .COMPLEX 04/13/23 pack #21 tabs Allergies Allergy/AdvReac Type Severity Reaction Status Date / Time peanut Allergy Verified 02/15/23 10:30 Worker's Comp Is this a Worker's Comp case?: No [facility] Disclaimer: The information contained in this section may have been updated after the patient was seen, as this information can be updated by other users. 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 Anemia Anxiety Asthma Depression Hypertension Surgical History No significant past surgical history Family History Other No significant family history Social History Smoking Status: Never smoker alcohol intake: never current occupational status: employed Travel in the last 8 weeks: None ROS Obtained: Yes All systems reviewed & no additional complaints except as documented and Yes Systems reviewed as appropriate & no additional complaints except as documented Constitutional Constitutional: Reports system reviewed and no additional complaints, except as documented and Reports as per HPI ENT Ears, Nose, Mouth, and Throat: Reports system reviewed and no additional complaints, except as documented and Reports as per HPI Cardiovascular Cardiovascular: Reports system reviewed and no additional complaints, except as documented and Reports as per HPI Respiratory Respiratory: Reports system reviewed and no additional complaints, except as documented and Reports as per HPI Gastrointestinal Gastrointestingal: Reports system reviewed and no additional complaints, except as documented and as per HPI Integumentary/Breasts Skin/Breast: Reports system reviewed and no additional complaints, except as documented, Reports as per HPI and Reports other (hx atopic dermatitis not clearing with topical cream/ointment) Physical Exam General General appearance: alert and in no apparent distress Respiratory Respiratory exam: Present normal lung sounds bilaterally; Absent respiratory distress or wheezes Cardiovascular Cardiovascular exam: Present regular rate, normal rhythm and normal heart sounds Neurological Exam Neurological exam: Present alert, oriented X3 and normal gait Skin Skin exam: Present rash (dry patchy like areas on scalp, hands and feet) Medical Decision Making Christopher Inquiry Pt receiving controlled substance: No Christopher was queried for this patient: No Vital Signs: 04/13/23 15:15 Temperature 98.2 F Temperature Source Oral Pulse Rate [Right Brachial] 71 Respiratory Rate 20 Blood Pressure [Right Arm] 134/67 Blood Pressure Mean [Right Arm] 89 Blood Pressure Source [Right Arm] Automatic Cuff Blood Pressure Position [Right Arm] Sitting 02 Sat by Pulse Oximetry 96 Oxygen Delivery Method Room Air Medical Decision Narrative: Denies last period 2 weeks ago
[2023-04-13 15:30] VITALS: BP 134/67; PULSE 71; RESP 20; TEMP 36.8; O2SAT 96
== END 2023-04-13 15:33 | disposition home or self-care (01) ==
PROVIDERS: Emergency Provider Nurse Practitioner; PCP Nurse Practitioner Adult Health
DX: L20.9 Atopic dermatitis, unspecified (principal)
CPT/HCPCS: 99212; 99214; G0463

== ENCOUNTER 2023-05-04 13:23 | Emergency (ER) | payer MEDICAID, SELFPAY ==
[2023-05-04 13:24] VITALS: BP 148/97; PULSE 76; RESP 18; O2SAT 97; BMI 40.2
--- NOTE | 2023-05-04 13:54 | ED_ITS ---
Discharge Plan Disposition Patient Disposition: Home, Self-Care Prescriptions Prescriptions: New triamcinolone acetonide 0.5 % ointment 1 applic topical DAILY Qty: 15 0RF prednisone 10 mg tablet 10 mg PO DIRECTED Qty: 35 0RF Rx Instructions: see taper instructions Take 40 mg daily for 5 days followed by 20 mg daily for 5 days followed by 10 mg daily for 5 days cetirizine [All Day Allergy (cetirizine)] 10 mg tablet 10 mg PO DAILY 30 Days Qty: 30 0RF No Action albuterol sulfate 90 mcg/actuation aerosol powdr breath activated 2 inh inhalation Q6H PRN (Reason: shortness of breath or wheezing) Qty: 1 0RF prednisone 50 mg tablet 50 mg PO DAILY 5 Days Qty: 5 0RF methocarbamol 500 mg tablet 500 mg PO Q8H PRN (Reason: pain) Qty: 20 0RF prednisone 10 mg tablet 10 mg PO DIRECTED Qty: 35 0RF Rx Instructions: see taper instructions Take 40 mg (4 tabs) daily for 5 days; THEN take 20 mg (2 tabs) daily for 5 days; THEN take 10 mg (1 tab) daily for 5 days lidocaine [Lidoderm] 5 % adhesive patch,medicated 1 patch topical DAILY Qty: 15 0RF Rx Instructions: leave on most painful area for up to 12 hrs clobetasol 0.05 % solution 1 applic topical BID 14 Days Qty: 50 1RF Eucrisa 2 % ointment 1 applic topical DAILY Qty: 60 0RF prednisone 10 mg tablets,dose pack See Rx Instructions .ROUTE .COMPLEX Qty: 21 0RF Rx Instructions: Take as directed on package instructions Referrals Follow up/Referrals: Provider,Referral, MD [Primary Care Provider] - See instructions Activity Restrictions/Add. Instructions Additional Instructions/Restrictions: Call your family doctor to establish care for this visit to the emergency department and schedule follow-up within 48 hours to ensure improvement. If you have any worsening of your condition or any other concerning signs or symptoms, return to the emergency department or your primary care doctor for further evaluation. Continue follow-up with dermatology on . Steroid taper as prescribed, daily Zyrtec as well. Clinical Impressions Clinical Impression: Dermatitis Instructions Patient Instructions: DI for Skin Abscess Discharge ED Provider: Pradip Duron General Adult [facility] General Chief complaint: Skin/Abscess/Foreign Body Stated complaint: atopic eczema Time Seen by Provider: 05/04/23 13:34 Mode of Arrival: Ambulatory Source of Information: Patient Limitations: No Limitations Description of Symptoms (Recalled from ER Triage Doc. by RN): Patient reports having an eczema flare up that started a month ago. 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 Patient was seen in an [facility] a week ago and got a steroid shot but patient reports she did not get any relief from it. History of Present Illness HPI narrative: 32-year-old female with history of atopic dermatitis presenting with worsening dermatitis and need for refill medications. 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 States that she has dermatitis on her hands, ankles, elbows, scalp she has largely been unable to function secondary to pain and discomfort. Has been putting on Vaseline daily, triamcinolone ointment daily, emollients, etc. Has not been taking daily medication for allergies. Related Data Previous Rx's Medication Instructions Recorded clobetasol 0.05 % scalp solution 1 applic topical BID 2 weeks #50 mL 12/28/22 crisaborole 2 % topical ointment 1 applic topical DAILY #60 grams 01/09/23 (Eucrisa) albuterol sulfate 90 mcg/actuation 2 inh inhalation Q6H PRN shortness 02/15/23 breath activated powder inhaler of breath or wheezing #1 ea prednisone 50 mg tablet 50 mg PO DAILY 5 days #5 tabs 02/15/23 lidocaine 5 % topical patch 1 patch topical DAILY #15 ea 03/11/23 (Lidoderm) methocarbamol 500 mg tablet 500 mg PO Q8H PRN pain #20 tabs 03/11/23 prednisone 10 mg tablet 10 mg PO DIRECTED #35 tabs 03/11/23 prednisone 10 mg tablets in a dose See Rx Instructions PO .COMPLEX 04/13/23 pack #21 tabs cetirizine 10 mg tablet (All Day 10 mg PO DAILY allergy symptoms 1 05/04/23 Allergy (cetirizine)) month #30 tabs prednisone 10 mg tablet 10 mg PO DIRECTED #35 tabs 05/04/23 triamcinolone acetonide 0.5 % 1 applic topical DAILY #15 grams 05/04/23 topical ointment Allergies Allergy/AdvReac Type Severity Reaction Status Date / Time peanut Allergy Verified 02/15/23 10:30 [facility] Disclaimer: The information contained in this section may have been updated after the patient was seen, as this information can be updated by other users. 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 Anemia Anxiety Asthma Depression Hypertension Surgical History No significant past surgical history Family History Other No significant family history Social History Smoking Status: Never smoker alcohol intake: never current occupational status: employed Travel in the last 8 weeks: None ROS Obtained: Yes All systems reviewed & no additional complaints except as documented Physical Exam General General appearance: alert and in no apparent distress Head Head exam: atraumatic and normocephalic Eye Eye exam: Present normal appearance, PERRL and EOMI ENT ENT exam: Present mucous membranes moist Neck Neck exam: Present normal inspection, full ROM and trachea midline Respiratory Respiratory exam: Absent respiratory distress, wheezes, stridor, accessory muscle use or prolonged expiratory phase Cardiovascular Cardiovascular exam: Present normal rhythm Abdominal Exam Abdominal exam: Present soft; Absent distention, tenderness, guarding, rebound or rigidity Extremities Exam Extremities exam: Present other (Tenderness, excoriations, irritated skin bilateral upper and lower extremities including feet, hands, ankles, wrist, forearms, legs extending to torso, neck, scalp concerning for eczema.); Absent edema Neurological Exam Neurological exam: Present alert, oriented X3, CN II-XII intact and normal gait; Absent motor sensory deficit Skin Skin exam: Present warm and dry; Absent diaphoresis or erythema Medical Decision Making Medical Records Medical records reviewed: Yes I reviewed the patient's medical records. Christopher Inquiry Pt receiving controlled substance: No Christopher was queried for this patient: No Vital Signs: 05/04/23 13:24 Pulse Rate [Right Brachial] 76 Respiratory Rate 18 Blood Pressure [Right Arm] 148/97 H Blood Pressure Mean [Right Arm] 114 Blood Pressure Position [Right Arm] Sitting 02 Sat by Pulse Oximetry 97 Oxygen Delivery Method Room Air Medical Decision Narrative: 32-year-old female with history of atopic dermatitis presenting with worsening dermatitis and need for refill medications. 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 States that she has dermatitis on her hands, ankles, elbows, scalp she has largely been unable to function secondary to pain and discomfort. Has been putting on Vaseline daily, triamcinolone ointment daily, emollients, etc. Has not been taking daily medication for allergies. History was obtained via conversation with patient. On arrival, patient hemodynamically stable, alert, oriented x4, appropriate, GCS 15, moving all extremities spontaneously, pupils equal and reactive to light. Full physical exam performed and significant for uncomfortable appearing woman with dermatitis involving bilateral upper and lower extremities as well as trunk. Hemodynamically stable, normotensive,. No evidence of infection. No desquamation or peripheral flaking. Differential includes atopic dermatitis, infectious rash, fungal rash, among others. Patient was given medications for home-going for symptomatic management and correction of underlying abnormalities. Because patient very well-appearing in no acute distress, deemed appropriate for outpatient management. Because patient at baseline without signs or symptoms of clinical decompensation, deemed appropriate for discharge. Results were relayed to patient who voiced understanding and were agreeable to outpatient management and follow up. At the time of discharge the patient was hemodynamically stable, tolerating PO, and mobilizing appropriately. Critical Care Critical Care Time Critical Care Time: No
[2023-05-04 14:18] VITALS: BP 148/97; PULSE 76; RESP 18; TEMP 36.7; O2SAT 97
== END 2023-05-04 14:19 | disposition home or self-care (01) ==
PROVIDERS: Emergency Provider Emergency Medicine
DX: L30.9 Dermatitis, unspecified (principal); J45.909 Unspecified asthma, uncomplicated; I10 Essential (primary) hypertension
CPT/HCPCS: 99283

== ENCOUNTER 2023-06-14 12:40 | Emergency (ER) | payer MEDICAID, SELFPAY ==
[2023-06-14 12:55] VITALS: BP 126/74; PULSE 72; RESP 18; TEMP 37.1; O2SAT 98; BMI 40.2
--- NOTE | 2023-06-14 12:57 | ED_ITS ---
Discharge Plan Disposition Patient Disposition: Home, Self-Care Condition: Good Prescriptions Prescriptions: New prednisone 10 mg tablet 10 mg PO DIRECTED 9 Days Qty: 21 0RF Rx Instructions: Take 4 tablets daily for 3 days, then take 2 tablets daily for 3 days, then take 1 tablet daily for 3 days, then stop. No Action albuterol sulfate 90 mcg/actuation aerosol powdr breath activated 2 inh inhalation Q6H PRN (Reason: shortness of breath or wheezing) Qty: 1 0RF lidocaine [Lidoderm] 5 % adhesive patch,medicated 1 patch topical DAILY Qty: 15 0RF Rx Instructions: leave on most painful area for up to 12 hrs triamcinolone acetonide 0.5 % ointment 1 applic topical DAILY Qty: 15 0RF cetirizine [All Day Allergy (cetirizine)] 10 mg tablet 10 mg PO DAILY 30 Days Qty: 30 0RF Dupixent Pen 300 mg/2 mL pen injector See Rx Instructions .ROUTE .COMPLEX Rx Instructions: see rx instruction norgestimate-ethinyl estradiol [Sprintec (28)] 0.25-35 mg-mcg tablet 1 tab PO DAILY Patient Comments: TAKE 1 TABLET BY MOUTH ONCE DAILY clobetasol 0.05 % solution 1 applic topical BID 14 Days Qty: 50 1RF Eucrisa 2 % ointment 1 applic topical DAILY Qty: 60 0RF Referrals Follow up/Referrals: Provider,Referral, MD [Primary Care Provider] - See instructions Activity Restrictions/Add. Instructions Additional Instructions/Restrictions: Take the medication as directed. Follow up with your regular doctor. GO TO THE ER FOR ANY WORSENING SYMPTOMS OR CONCERNS Clinical Impressions Clinical Impression: Eczema Instructions Patient Instructions: Eczema, Prednisone Discharge ED Provider: Surya Jha [facility] General Stated complaint: atopic eczema, asthma Time Seen by Provider: 06/14/23 12:57 History of Present Illness Provider Complaint: She has a history or significant atopic eczema that affects her whole body. She is followed by dermatology and she has been started on Dupixent injections. She states that she has only had her first injection and the injections are every 2 weeks. She states that she is still having eczema symptoms and she needs some steroids to help relieve them until the injection begins to work. Related Data Home Medications Medication Instructions Recorded Confirmed dupilumab 300 mg/2 mL subcutaneous See Rx Instructions .Route .COMPLEX 04/01/24 04/01/24 pen injector (Dupixent) norgestimate 0.25 mg-ethinyl 1 tab PO DAILY 06/14/23 06/14/23 estradiol 35 mcg tablet (Sprintec (28)) Previous Rx's Medication Instructions Recorded clobetasol 0.05 % scalp solution 1 applic topical BID 2 weeks #50 mL 12/28/22 crisaborole 2 % topical ointment 1 applic topical DAILY #60 grams 01/09/23 (Eucrisa) albuterol sulfate 90 mcg/actuation 2 inh inhalation Q6H PRN shortness 02/15/23 breath activated powder inhaler of breath or wheezing #1 ea lidocaine 5 % topical patch 1 patch topical DAILY #15 ea 03/11/23 (Lidoderm) cetirizine 10 mg tablet (All Day 10 mg PO DAILY allergy symptoms 1 05/04/23 Allergy (cetirizine)) month #30 tabs triamcinolone acetonide 0.5 % 1 applic topical DAILY #15 grams 05/04/23 topical ointment prednisone 10 mg tablet 10 mg PO DIRECTED 9 days #21 06/14/23 tabs Allergies Allergy/AdvReac Type Severity Reaction Status Date / Time peanut Allergy Verified 06/14/23 13:01 [facility] Disclaimer: The information contained in this section may have been updated after the patient was seen, as this information can be updated by other users. 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 Anemia Anxiety Asthma Depression Hypertension Surgical History No significant past surgical history Family History Other No significant family history Social History Smoking Status: Never smoker alcohol intake: never current occupational status: employed Travel in the last 8 weeks: None ROS Obtained: Yes All systems reviewed & no additional complaints except as documented Constitutional Constitutional: Denies chills and Denies fever(s) Eyes Eyes: Denies eye discharge ENT Ears, Nose, Mouth, and Throat: Denies dizziness, Denies otalgia and Denies sore throat Cardiovascular Cardiovascular: Denies chest pain Respiratory Respiratory: Denies shortness of breath, Denies chest congestion, Denies cough, Denies stridor and Denies wheezing Gastrointestinal Gastrointestingal: Denies nausea or vomiting Musculoskeletal Musculoskeletal: Reports system reviewed and no additional complaints, except as documented and Denies arthralgias Integumentary/Breasts Skin/Breast: Reports as per HPI and Reports rash Neurologic Neurologic: Denies dizziness and Denies paresthesias Allergic/Immunologic Allergic/Immunologic: Denies wheezing Physical Exam General General appearance: alert and in no apparent distress Head Head exam: atraumatic, normocephalic and normal inspection Eye Eye exam: Present normal appearance, PERRL and EOMI ENT ENT exam: Present normal exam, normal oropharynx, mucous membranes moist, TM's normal bilaterally and normal external ear exam Neck Neck exam: Present normal inspection, full ROM and trachea midline; Absent meningismus or lymphadenopathy Chest Chest inspection: Present normal inspection and symmetric chest wall rise; Absent tenderness Respiratory Respiratory exam: Present normal lung sounds bilaterally; Absent respiratory distress Cardiovascular Cardiovascular exam: Present regular rate and normal rhythm; Absent JVD Abdominal Exam Abdominal exam: Present soft and normal bowel sounds; Absent distention, tenderness or guarding Extremities Exam Extremities exam: Present normal inspection, full ROM and normal capillary refill; Absent calf tenderness Back Exam Back exam: Present normal inspection; Absent tenderness Neurological Exam Neurological exam: Present alert and oriented X3 Psychiatric Psychiatric exam: Present normal affect and normal mood Skin Skin exam: Present rash Lymphatic Lymphatic Findings: no adenopathy Medical Decision Making Medical Records Medical records reviewed: No I reviewed the patient's medical records. Christopher Inquiry Pt receiving controlled substance: No
[2023-06-14 13:44] VITALS: BP 126/74; PULSE 72; RESP 18; TEMP 37.1; O2SAT 98
== END 2023-06-14 13:44 | disposition home or self-care (01) ==
PROVIDERS: Emergency Provider Nurse Practitioner Family
DX: L30.8 Other specified dermatitis (principal)
CPT/HCPCS: 99212; 99214; G0463

== ENCOUNTER 2023-08-02 19:08 | Emergency (ER) | payer MEDICAID, SELFPAY ==
[2023-08-02 20:00] VITALS: BP 134/86; PULSE 76; RESP 20; TEMP 37.2; O2SAT 98; BMI 40.6
--- NOTE | 2023-08-02 20:23 | ED_ITS ---
Discharge Plan Disposition Patient Disposition: Home, Self-Care Condition: Good Prescriptions Prescriptions: New azithromycin [Zithromax Z-Tyson] 250 mg tablet See Rx Instructions .ROUTE .COMPLEX 5 Days Qty: 6 0RF Rx Instructions: For 250 mg dose pack: take 500 mg today (day 1), then 250 mg for 4 days (days 2-5) prednisone 20 mg tablet 20 mg PO BID 5 Days Qty: 10 0RF No Action norgestimate-ethinyl estradiol [Sprintec (28)] 0.25-35 mg-mcg tablet 1 tab PO DAILY Patient Comments: TAKE 1 TABLET BY MOUTH ONCE DAILY Dupixent Pen 300 mg/2 mL pen injector 300 mg SQ DAILY Referrals Follow up/Referrals: Provider,Referral, MD [Primary Care Provider] - See instructions Activity Restrictions/Add. Instructions Additional Instructions/Restrictions: Follow up with Dermatolgy as recommended Follow up with your Family Doctor Return if needed Straight to ER if any life threatening symptoms Clinical Impressions Clinical Impression: Sinusitis Qualifiers: Sinusitis location: unspecified location Chronicity: unspecified Qualified Code(s): J32.9 - Chronic sinusitis, unspecified Eczema Qualifiers: Eczema type: unspecified Qualified Code(s): L30.9 - Dermatitis, unspecified Stand Alone Forms Stand Alone Forms: Work/School Release Instructions Patient Instructions: Eczema, DI for Sinusitis Discharge ED Provider: Ana Cota [facility] General Stated complaint: QUINONES,runny nose,congestion,cough Mode of Arrival: Ambulatory Source of Information: Patient Limitations: No Limitations Time Seen by Provider: 08/02/23 20:23 Description of Symptoms (Recalled from Triage Doc. by RN): PATIENT C/O ALLERGIES, GREEN MUCOUS, ECZEMA, AND ASTHMA FLARE-UP X 2 DAYS HEENT Symptoms (Recalled from RN notes): Yes Resp Symptoms (Recalled from RN notes): Yes Skin Symptoms (Recalled from RN notes): Yes MS Symptoms (Recalled from RN notes): No Functional Status (Recalled from RN notes): WNL History of Present Illness Provider Complaint: Patient states that for the last 3-4 days she has been having sinus pain and pressure, greenish yellow mucous, and eczema flare on her arms States that she has a hx of asthma and she is afraid if she dont get something it will cause it to flare up 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 here for steriod pack to help with her eczema and she wanted to get something for her sinus infection Related Data Home Medications Medication Instructions Recorded Confirmed dupilumab 300 mg/2 mL subcutaneous 300 mg SQ DAILY 08/02/23 08/02/23 pen injector (Dupixent) norgestimate 0.25 mg-ethinyl 1 tab PO DAILY 08/02/23 08/02/23 estradiol 35 mcg tablet (Sprintec (28)) Previous Rx's Medication Instructions Recorded azithromycin 250 mg tablet See Rx Instructions PO .COMPLEX 5 08/02/23 (Zithromax Z-Tyson) days #6 tabs prednisone 20 mg tablet 20 mg PO BID 5 days #10 tabs 08/02/23 Allergies Allergy/AdvReac Type Severity Reaction Status Date / Time peanut Allergy Verified 06/14/23 13:01 Worker's Comp Is this a Worker's Comp case?: No [facility] Disclaimer: The information contained in this section may have been updated after the patient was seen, as this information can be updated by other users. 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 Anemia Anxiety Asthma Depression Hypertension Surgical History No significant past surgical history Family History (Reviewed 03/11/23 @ :24 by Shona Mota DO) Other No significant family history Social History Smoking Status: Never smoker alcohol intake: never current occupational status: employed Travel in the last 8 weeks: None ROS Obtained: Yes All systems reviewed & no additional complaints except as documented and Yes Systems reviewed as appropriate & no additional complaints except as documented Constitutional Constitutional: Reports system reviewed and no additional complaints, except as documented and Reports as per HPI ENT Ears, Nose, Mouth, and Throat: Reports system reviewed and no additional complaints, except as documented, Reports as per HPI, Reports nasal congestion, Reports sinus pain and Reports sinus pressure Cardiovascular Cardiovascular: Reports system reviewed and no additional complaints, except as documented and Reports as per HPI Respiratory Respiratory: Reports system reviewed and no additional complaints, except as documented and Reports as per HPI Gastrointestinal Gastrointestingal: Reports system reviewed and no additional complaints, except as documented and as per HPI Integumentary/Breasts Skin/Breast: Reports system reviewed and no additional complaints, except as documented, Reports as per HPI and Reports other (eczema flare up) Physical Exam General General appearance: alert and in no apparent distress ENT ENT exam: Present mucous membranes moist Expanded ENT Exam Nose exam: Present sinus tenderness and other (reports yellowish green mucous) Respiratory Respiratory exam: Present normal lung sounds bilaterally; Absent respiratory distress or wheezes Cardiovascular Cardiovascular exam: Present regular rate, normal rhythm and normal heart sounds Neurological Exam Neurological exam: Present alert, oriented X3 and normal gait Skin Skin exam: Present rash (eczema flare noted on left forearm) Medical Decision Making Christopher Inquiry Pt receiving controlled substance: No Christopher was queried for this patient: No Vital Signs: 08/02/23 20:00 Temperature 99.0 F Temperature Source Oral Pulse Rate [Left Brachial] 76 Respiratory Rate 20 Blood Pressure [Left Arm] 134/86 Blood Pressure Mean [Left Arm] 102 Blood Pressure Source [Left Arm] Automatic Cuff Blood Pressure Position [Left Arm] Sitting 02 Sat by Pulse Oximetry 98 Oxygen Delivery Method Room Air
[2023-08-02] MEDS: METHYLPREDNISOLONE SOD SUCC 125MG VIAL 125 MG IM (20:41)
[2023-08-02 20:42] VITALS: BP 134/86; PULSE 76; RESP 20; TEMP 37.2; O2SAT 98
== END 2023-08-02 20:51 | disposition home or self-care (01) ==
PROVIDERS: Emergency Provider Nurse Practitioner
DX: J01.90 Acute sinusitis, unspecified (principal); L30.9 Dermatitis, unspecified; J45.909 Unspecified asthma, uncomplicated
CPT/HCPCS: 96372; 99212; 99214; G0463

== ENCOUNTER 2023-08-10 18:10 | Emergency (ER) | payer MEDICAID, SELFPAY ==
[2023-08-10] VITALS (8 sets, daily range): BP systolic 120–184; BP diastolic 57–97; PULSE 61–76; RESP 13–23; TEMP 36.6; O2SAT 95–99; BMI 41.5
--- NOTE | 2023-08-10 18:16 | ED_ITS ---
Discharge Plan Disposition Patient Disposition: Home, Self-Care Condition: Good Prescriptions Prescriptions: No Action norgestimate-ethinyl estradiol [Sprintec (28)] 0.25-35 mg-mcg tablet 1 tab PO DAILY Patient Comments: TAKE 1 TABLET BY MOUTH ONCE DAILY Dupixent Pen 300 mg/2 mL pen injector 300 mg SQ DAILY azithromycin [Zithromax Z-Tyson] 250 mg tablet See Rx Instructions .ROUTE .COMPLEX 5 Days Qty: 6 0RF Rx Instructions: For 250 mg dose pack: take 500 mg today (day 1), then 250 mg for 4 days (days 2-5) prednisone 20 mg tablet 20 mg PO BID 5 Days Qty: 10 0RF Referrals Follow up/Referrals: Provider,Referral, MD [Primary Care Provider] - See instructions Activity Restrictions/Add. Instructions Additional Instructions/Restrictions: Please follow-up with your PCP for further workup. Return to ER for any worsening signs or symptoms as needed. Clinical Impressions Clinical Impression: Dizziness Headache Qualifiers: Headache type: unspecified Headache chronicity pattern: acute headache I ntractability: not intractable Qualified Code(s): R51.9 - Headache, unspecified Discharge ED Provider: Pradip Duron General Adult HPI <FAREED Pedro - Last Filed: 08/10/23 22:32> General Chief complaint: Dizziness Stated complaint: dizzy, passed out at work @1800, Time Seen by Provider: 08/10/23 18:16 History of Present Illness HPI narrative: Patient presents for evaluation of possible syncope. Patient states that she was at work feeling normal and she began to be dizzy/lightheaded. She asked to take a break and was walking to her car and felt that she had buzzing or ringing in her ears and fell to her knees. When questioned whether or not she actually hit the ground or completely passed out she is unclear but did not strike the ground. EMS was called however and patient brought to the emergency department. Currently at the time my exam patient denies chest pain fever chills hemoptysis hematochezia melena does report nausea but no vomiting or diarrhea. She reports ringing in her ears and that everything is spinning she does report a history of vertigo and atopic dermatitis. Related Data Home Medications Medication Instructions Recorded Confirmed dupilumab 300 mg/2 mL subcutaneous 300 mg SQ DAILY 08/02/23 08/02/23 pen injector (Dupixent) norgestimate 0.25 mg-ethinyl 1 tab PO DAILY 08/02/23 08/02/23 estradiol 35 mcg tablet (Sprintec (28)) Previous Rx's Medication Instructions Recorded azithromycin 250 mg tablet See Rx Instructions PO .COMPLEX 5 08/02/23 (Zithromax Z-Tyson) days #6 tabs prednisone 20 mg tablet 20 mg PO BID 5 days #10 tabs 08/02/23 Allergies Allergy/AdvReac Type Severity Reaction Status Date / Time peanut Allergy Verified 06/14/23 13:01 [facility] <FAREED Pedro - Last Filed: 08/10/23 22:32> [facility] Disclaimer: The information contained in this section may have been updated after the patient was seen, as this information can be updated by other users. 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 Anemia Anxiety Asthma Depression Hypertension Surgical History No significant past surgical history Family History Other No significant family history Social History Smoking Status: Never smoker alcohol intake: never current occupational status: employed Travel in the last 8 weeks: None <FAREED Pedro - Last Filed: 08/10/23 22:32> ROS Obtained: Yes Systems reviewed as appropriate & no additional complaints except as documented Physical Exam <FAREED Pedro - Last Filed: 08/10/23 22:32> General General appearance: alert and in no apparent distress Head Head exam: atraumatic and normal inspection Eye Eye exam: Present normal appearance, PERRL and EOMI; Absent nystagmus ENT ENT exam: Present normal exam, normal oropharynx, mucous membranes moist and TM's normal bilaterally Neck Neck exam: Present normal inspection and full ROM; Absent tenderness, meningismus or lymphadenopathy Respiratory Respiratory exam: Present normal lung sounds bilaterally Cardiovascular Cardiovascular exam: Present regular rate, normal rhythm, normal heart sounds, +S1 and +S2 Abdominal Exam Abdominal exam: Present soft and normal bowel sounds; Absent tenderness Extremities Exam Extremities exam: Present normal inspection and full ROM Back Exam Back exam: Present normal inspection and full ROM; Absent tenderness Neurological Exam Neurological exam: Present alert, oriented X3, CN II-XII intact, normal gait and reflexes normal; Absent motor sensory deficit Psychiatric Psychiatric exam: Present normal affect and normal mood Skin Skin exam: Present warm, dry and normal color Medical Decision Making <FAREED Pedro - Last Filed: 08/10/23 22:32> Medical Records Medical records reviewed: Yes I reviewed the patient's medical records. Christopher Inquiry Pt receiving controlled substance: No Vital Signs: 08/10/23 18:30 08/10/23 19:00 08/10/23 19:11 Temperature 97.9 F Temperature Source Oral Pulse Rate 75 70 Pulse Rate [Left Radial] 76 Respiratory Rate 23 23 18 Blood Pressure 139/87 128/57 L Blood Pressure [Right Arm] 155/96 H Blood Pressure Mean [Right Arm] 115 Blood Pressure Source [Right Arm] Automatic Cuff Blood Pressure Position [Right Arm] Sitting 02 Sat by Pulse Oximetry 98 98 99 Oxygen Delivery Method Room Air Room Air Room Air 08/10/23 20:00 08/10/23 20:30 08/10/23 21:00 Temperature Temperature Source Pulse Rate 64 73 75 Pulse Rate [Left Radial] Respiratory Rate 13 15 18 Blood Pressure 132/75 121/81 184/97 H Blood Pressure [Right Arm] Blood Pressure Mean [Right Arm] Blood Pressure Source [Right Arm] Blood Pressure Position [Right Arm] 02 Sat by Pulse Oximetry 97 98 95 Oxygen Delivery Method Room Air Room Air Room Air 08/10/23 21:28 08/10/23 22:36 Temperature 97.9 F Temperature Source Oral Pulse Rate 66 61 Pulse Rate [Left Radial] Respiratory Rate 17 16 Blood Pressure 120/74 150/84 H Blood Pressure [Right Arm] Blood Pressure Mean [Right Arm] Blood Pressure Source [Right Arm] Blood Pressure Position [Right Arm] 02 Sat by Pulse Oximetry 96 Oxygen Delivery Method Room Air Lab Data Lab results reviewed: Yes I reviewed the patient's lab results. Lab Results 08/10/23 18:36: WBC 14.2 H, RBC 5.28, Hgb 15.1, Hct 46.9, MCV 88.8, MCH 28.6, MCHC 32.2, RDW 14.4, Plt Count 363, MPV 7.6, Neut % (Auto) 70.2, Lymph % (Auto) 19.6, [place] % (Auto) 3.8, Eos % (Auto) 5.5, Baso % (Auto) 0.9, Neut # (Auto) 10.0 H, Lymph # (Auto) 2.8, [place] # (Auto) 0.5, Eos # (Auto) 0.8 H, Baso # (Auto) 0.1, Sodium 137, Potassium 3.7, Chloride 104, Carbon Dioxide 23, Anion Gap 13.7, BUN 13, Creatinine 0.70, Estimated GFR 97, Est GFR ( Amer) 117, Glucose 136 H , Calcium 9.4, Magnesium 1.8, Total Bilirubin 0.5, AST 30, ALT 27, Alkaline Phosphatase 64, Troponin I < 0.01, Total Protein 7.4, Albumin 4.2, Globulin 3.2, Albumin/Globulin Ratio 1.3, TSH 1.04, Serum HCG, Qual Negative 08/10/23 21:19: Troponin I < 0.01 08/10/23 18:36 08/10/23 18:36 Orders (Tests/Meds): ED MEDICATIONS Discontinued Medications Generic Name Dose Route Start Last Admin Trade Name Freq PRN Reason Stop Dose Admin Acetaminophen 1,000 mg 08/10/23 18:27 08/10/23 18:46 Acetaminophen 1,000mg/100ml Vial IV 08/10/23 18:28 1,000 mg ONCE ONE Administration Droperidol 2.5 mg 08/10/23 20:20 08/10/23 20:29 Droperidol 5mg/2ml Vial IV 08/10/23 20:21 2.5 mg ONCE ONE Administration Lactated Ringer's 1,000 mls @ 999 mls/hr 08/10/23 18:27 08/10/23 18:46 Lactated Ringer's 1000 Ml Bag IV 08/10/23 19:27 999 mls/hr .Q1H1M ONE Administration Ketorolac Tromethamine 15 mg 08/10/23 18:27 08/10/23 18:46 Ketorolac 30mg/Ml Vial IV 08/10/23 18:28 15 mg ONCE ONE Administration Meclizine HCl 25 mg 08/10/23 18:27 08/10/23 18:46 Meclizine 25mg Tablet PO 08/10/23 18:28 25 mg ONCE ONE Administration Methylprednisolone Sodium Succinate 125 mg 08/10/23 18:29 08/10/23 18:46 Methylprednisolone Sod Succ 125mg Vial IV 08/10/23 18:30 125 mg ONCE ONE Administration ORDERS Category Date Time Status CT head/brain wo con Stat Cat Scan 08/10/23 18:27 Completed Chest XR -- portable [XR chest portable] Stat Exams 08/10/23 18:27 Completed CBC w/Auto Diff [Complete Blood Count Auto Diff] Stat Lab 08/10/23 18:36 Completed CMP [Comprehensive Metabolic Panel] Stat Lab 08/10/23 18:36 Completed HCG Qualitative, Serum Stat Lab 08/10/23 18:36 Completed Magnesium Stat Lab 08/10/23 18:36 Completed TSH [Thyroid Stimulating Hormone] Stat Lab 08/10/23 18:36 Completed Trop I [Troponin I] Stat Lab 08/10/23 18:36 Completed Troponin I Q3H Lab 08/10/23 21:19 Completed Medical Decision Narrative: In summary patient is a 33-year-old female who presents to the emergency department for evaluation of dizziness and near syncope. Patient is hemodynamically stable upon arrival, afebrile. Physical exam is unremarkable and nonfocal including no focal neurologic findings, no meningeal mass, no cervical spine tenderness, bilateral TMs and external auditory canals are normal no nystagmus. Differential diagnosis includes vestibular disorder, arrhythmia, stroke, space-occupying lesion, vasovagal etc. Initial workup will be conducted with hematologic labs, CT scan of the head, urinalysis, test. Initial interventions include fluid bolus Toradol Tylenol Solu-Medrol. Initial workup reviewed by me shows that her hematologic labs are nonactionable and her CT scan of her head has no acute intracranial processes BMI informal interpretation prior to radiology read. Upon repeat evaluation patient still has headache and dizziness. Given this the patient was placed in observation status at 2030. Medical necessity for observational status is observation for headache improvement after administration of droperidol . The patient was provided serial reevaluations continuous cardiac monitoring and continuous pulse oximetry while awaiting results. Patient is now tolerating p.o. and her headache is gone. Because of this patient can now be discharged with follow-up with her PCP for further workup as necessary.. Total time in observation was 120 minutes. <Pradip Duron MD - Last Filed: 08/10/23 23:31> Vital Signs: 08/10/23 18:30 08/10/23 19:00 08/10/23 19:11 Temperature 97.9 F Temperature Source Oral Pulse Rate 75 70 Pulse Rate [Left Radial] 76 Respiratory Rate 23 23 18 Blood Pressure 139/87 128/57 L Blood Pressure [Right Arm] 155/96 H Blood Pressure Mean [Right Arm] 115 Blood Pressure Source [Right Arm] Automatic Cuff Blood Pressure Position [Right Arm] Sitting 02 Sat by Pulse Oximetry 98 98 99 Oxygen Delivery Method Room Air Room Air Room Air 08/10/23 20:00 08/10/23 20:30 08/10/23 21:00 Temperature Temperature Source Pulse Rate 64 73 75 Pulse Rate [Left Radial] Respiratory Rate 13 15 18 Blood Pressure 132/75 121/81 184/97 H Blood Pressure [Right Arm] Blood Pressure Mean [Right Arm] Blood Pressure Source [Right Arm] Blood Pressure Position [Right Arm] 02 Sat by Pulse Oximetry 97 98 95 Oxygen Delivery Method Room Air Room Air Room Air 08/10/23 21:28 08/10/23 22:36 Temperature 97.9 F Temperature Source Oral Pulse Rate 66 61 Pulse Rate [Left Radial] Respiratory Rate 17 16 Blood Pressure 120/74 150/84 H Blood Pressure [Right Arm] Blood Pressure Mean [Right Arm] Blood Pressure Source [Right Arm] Blood Pressure Position [Right Arm] 02 Sat by Pulse Oximetry 96 Oxygen Delivery Method Room Air Lab Data Lab Results 08/10/23 18:36: WBC 14.2 H, RBC 5.28, Hgb 15.1, Hct 46.9, MCV 88.8, MCH 28.6, MCHC 32.2, RDW 14.4, Plt Count 363, MPV 7.6, Neut % (Auto) 70.2, Lymph % (Auto) 19.6, [place] % (Auto) 3.8, Eos % (Auto) 5.5, Baso % (Auto) 0.9, Neut # (Auto) 10.0 H, Lymph # (Auto) 2.8, [place] # (Auto) 0.5, Eos # (Auto) 0.8 H, Baso # (Auto) 0.1, Sodium 137, Potassium 3.7, Chloride 104, Carbon Dioxide 23, Anion Gap 13.7, BUN 13, Creatinine 0.70, Estimated GFR 97, Est GFR ( Amer) 117, Glucose 136 H , Calcium 9.4, Magnesium 1.8, Total Bilirubin 0.5, AST 30, ALT 27, Alkaline Phosphatase 64, Troponin I < 0.01, Total Protein 7.4, Albumin 4.2, Globulin 3.2, Albumin/Globulin Ratio 1.3, TSH 1.04, Serum HCG, Qual Negative 08/10/23 21:19: Troponin I < 0.01 Orders (Tests/Meds): ED MEDICATIONS Discontinued Medications Generic Name Dose Route Start Last Admin Trade Name Freq PRN Reason Stop Dose Admin Acetaminophen 1,000 mg 08/10/23 18:27 08/10/23 18:46 Acetaminophen 1,000mg/100ml Vial IV 08/10/23 18:28 1,000 mg ONCE ONE Administration Droperidol 2.5 mg 08/10/23 20:20 08/10/23 20:29 Droperidol 5mg/2ml Vial IV 08/10/23 20:21 2.5 mg ONCE ONE Administration Lactated Ringer's 1,000 mls @ 999 mls/hr 08/10/23 18:27 08/10/23 18:46 Lactated Ringer's 1000 Ml Bag IV 08/10/23 19:27 999 mls/hr .Q1H1M ONE Administration Ketorolac Tromethamine 15 mg 08/10/23 18:27 08/10/23 18:46 Ketorolac 30mg/Ml Vial IV 08/10/23 18:28 15 mg ONCE ONE Administration Meclizine HCl 25 mg 08/10/23 18:27 08/10/23 18:46 Meclizine 25mg Tablet PO 08/10/23 18:28 25 mg ONCE ONE Administration Methylprednisolone Sodium Succinate 125 mg 08/10/23 18:29 08/10/23 18:46 Methylprednisolone Sod Succ 125mg Vial IV 08/10/23 18:30 125 mg ONCE ONE Administration ORDERS Category Date Time Status CT head/brain wo con Stat Cat Scan 08/10/23 18:27 Completed Chest XR -- portable [XR chest portable] Stat Exams 08/10/23 18:27 Completed CBC w/Auto Diff [Complete Blood Count Auto Diff] Stat Lab 08/10/23 18:36 Completed CMP [Comprehensive Metabolic Panel] Stat Lab 08/10/23 18:36 Completed HCG Qualitative, Serum Stat Lab 08/10/23 18:36 Completed Magnesium Stat Lab 08/10/23 18:36 Completed TSH [Thyroid Stimulating Hormone] Stat Lab 08/10/23 18:36 Completed Trop I [Troponin I] Stat Lab 08/10/23 18:36 Completed Troponin I Q3H Lab 08/10/23 21:19 Completed Medical Decision Narrative: In summary patient is a 33-year-old female who presents to the emergency department for evaluation of dizziness and near syncope. Patient is hemodynamically stable upon arrival, afebrile. Physical exam is unremarkable and nonfocal including no focal neurologic findings, no meningeal mass, no cervical spine tenderness, bilateral TMs and external auditory canals are normal no nystagmus. Differential diagnosis includes vestibular disorder, arrhythmia, stroke, space-occupying lesion, vasovagal etc. Initial workup will be conducted with hematologic labs, CT scan of the head, urinalysis, test. Initial interventions include fluid bolus Toradol Tylenol Solu-Medrol. Initial workup reviewed by me shows that her hematologic labs are nonactionable and her CT scan of her head has no acute intracranial processes BMI informal interpretation prior to radiology read. Upon repeat evaluation patient still has headache and dizziness. Given this the patient was placed in observation status at 2030. Medical necessity for observational status is observation for headache improvement after administration of droperidol . The patient was provided serial reevaluations continuous cardiac monitoring and continuous pulse oximetry while awaiting results. Patient is now tolerating p.o. and her headache is gone. Because of this patient can now be discharged with follow-up with her PCP for further workup as necessary.. Total time in observation was 120 minutes. I was consulted by the DENICE, and we discussed the complexity of the problems being addressed. I approved the treatment and management plan for this patient?s care in the Emergency Department, thus performing a substantive portion of the medical decision making. Pradip Duron MD Critical Care <FAREED Pedro - Last Filed: 08/10/23 22:32> Critical Care Time Critical Care Time: No
--- NOTE | 2023-08-10 18:18 | ECG_ITS ---
APPROVED REPORT Exam: Resting ECG HR:76 bpm ECG Measurements Heart Rate 76 AXES DE 175 P 67 QRSd 97 QRS 46 QT 362 T 70 QTc 393 Conclusion Sinus rhythm Incomplete right bundle branch block Electronically signed by : MARTIN HUERTAS, 08/10/2023 20:45:00
--- NOTE | 2023-08-10 18:27 | CT_ITS ---
PROCEDURE INFORMATION: Exam: CT Head Without Contrast Exam date and time: 08/10/2023 7:30 PM Age: 33 years old Clinical indication: Dizziness; Additional info: Dizziness, near syncope TECHNIQUE: Imaging protocol: Computed tomography of the head without contrast. Radiation optimization: All CT scans at this facility use at least one of these dose optimization techniques: automated exposure control; mA and/or kV adjustment per patient size (includes targeted exams where dose is matched to clinical indication); or iterative reconstruction. COMPARISON: No relevant prior studies available. FINDINGS: Brain: No acute intracranial hemorrhage, midline shift or mass effect. Cerebral ventricles: No ventriculomegaly. Paranasal sinuses: Partial opacification of the right posterior ethmoid air cells. Left posterior ethmoid air cell bubbly opacities suggestive of acute sinusitis. Mastoid air cells: Visualized mastoid air cells are well aerated. Bones: Unremarkable. No acute fracture. Soft tissues: Unremarkable. IMPRESSION: No acute intracranial findings.
--- NOTE | 2023-08-10 18:27 | XR_ITS ---
PROCEDURE INFORMATION: Exam: XR Chest Exam date and time: 08/10/2023 7:27 PM Age: 33 years old Clinical indication: Other: Near syncope TECHNIQUE: Imaging protocol: Radiologic exam of the chest. Views: 1 view. COMPARISON: No relevant prior studies available. FINDINGS: Lungs: No consolidation. Pleural spaces: No pleural effusion. No pneumothorax. Heart/Mediastinum: No cardiomegaly. Bones/joints: Unremarkable. IMPRESSION: No acute pulmonary findings.
[2023-08-10 18:44] LABS: Basophils # 0.1 K/mm3 (0-0.2); Basophils % 0.9 % (0.1-2.0); Eosinophils # 0.8 K/mm3 (0.0-0.4); Eosinophils % 5.5 % (0.1-12.0); Hematocrit 46.9 % (37.0-47.0); Hemoglobin 15.1 g/dL (12.2-16.2); Lymphocytes # 2.8 K/mm3 (0.7-4.5); Lymphocytes % 19.6 % (10-50); Mean Corpuscular HGB Conc 32.2 g/dL (31.8-35.4); Mean Corpuscular Hemoglobin 28.6 pg (27.0-31.2); Mean Corpuscular Volume 88.8 fl (81-99); Mean Platelet Volume 7.6 fl (7.4-10.4); Monocytes # 0.5 K/mm3 (0.1-1.0); Monocytes % 3.8 % (1.7-9.3); Neutrophils % 70.2 % (37.0-80.0); Platelet Count 363 K/mm3 (142-424); Red Blood Count 5.28 M/mm3 (4.20-5.40); Red Cell Distribution Width 14.4 % (11.5-17.5); White Blood Count 14.2 K/mm3 (4.8-10.8)
[2023-08-10] MEDS: KETOROLAC 30MG/ML VIAL 15 MG IV (18:46)
[2023-08-10] MEDS: MECLIZINE 25MG TABLET 25 MG PO (18:46)
[2023-08-10] MEDS: LACTATED RINGERS 1000ML 1,000 ML 999 ML IV (18:46)
[2023-08-10] MEDS: METHYLPREDNISOLONE SOD SUCC 125MG VIAL 125 MG IV (18:46)
[2023-08-10] MEDS: ACETAMINOPHEN 1,000MG/100ML VIAL 1000 MG IV (18:46)
[2023-08-10 18:49] LABS: Chloride 104 mmol/L (98-107); Potassium 3.7 mmoL/L (3.5-5.1); Sodium 137 mmol/L (136-145)
[2023-08-10 18:52] LABS: Alanine Aminotransferase 27 U/L (12-78); Albumin Level 4.2 g/dl (3.5-5.0); Albumin/Globulin Ratio 1.3 (1.1-1.8); Alkaline Phosphatase 64 U/L (38-126); Anion Gap 13.7 mEq/L (5-15); Aspartate Amino Transferase 30 U/L (14-36); Bilirubin,Total 0.5 mg/dl (0.2-1.3); Blood Urea Nitrogen 13 mg/dl (7-17); Calcium 9.4 mg/dl (8.4-10.2); Carbon Dioxide 23 mmol/L (22.0-30.0); Estimated Glomerular Filt Rate 97 ml/min (>60); GFR (African American) 117 ML/MIN (>60); Globulin 3.2 g/dL (1.3-3.2); Glucose 136 mg/dl (74-100); Total Protein,Serum 7.4 g/dl (6.3-8.2)
[2023-08-10 18:53] LABS: Magnesium 1.8 mg/dl (1.6-2.3)
[2023-08-10 19:05] LABS: HCG Qualitative, Serum Negative (Negative); Troponin I < 0.01 ng/ml (0.00-0.034)
[2023-08-10 19:23] LABS: Thyroid Stimulating Hormone 1.04 uIU/mL (0.465-4.68)
[2023-08-10] MEDS: droPERidol 5MG/2ML VIAL 2.5 MG IV (20:29)
--- NOTE | 2023-08-10 21:58 | PC.NURSE ---
contacted anabelle with radiology; states currently it looks like the two remaining reports (ct head and cxr) are not on a list to be read. he will try to figure out what's going on
--- NOTE | 2023-08-10 22:01 | PC.NURSE ---
anabelle returned call and stated it's being sent there now;
[2023-08-10 22:02] LABS: Troponin I < 0.01 ng/ml (0.00-0.034)
== END 2023-08-10 22:40 | disposition home or self-care (01) ==
PROVIDERS: Physician Assistant; Emergency Provider Emergency Medicine
DX: R51.9 Headache, unspecified (principal); R42 Dizziness and giddiness
CPT/HCPCS: 36415; 70450; 71045; 80053; 83735; 84443; 84484; 84703; 85025; 93005; 96361; 96374; 96375; 99285; J0131; J1790; J7120

== ENCOUNTER 2023-09-25 14:18 | Emergency (ER) | payer MEDICAID, SELFPAY ==
[2023-09-25 14:30] VITALS: BP 132/78; PULSE 80; RESP 20; TEMP 36.9; O2SAT 96; BMI 39.6
--- NOTE | 2023-09-25 14:56 | EXP.UTC ---
Discharge Plan Disposition Patient Disposition: Home, Self-Care Condition: Good Prescriptions Prescriptions: New prednisone 20 mg tablet 20 mg PO BID Qty: 10 0RF No Action ketoconazole 2 % shampoo 1 applic TOPICAL WEEKLY Patient Comments: APPLY TOPICALLY THREE TIMES WEEKLY Dupixent Pen 300 mg/2 mL pen injector 300 mg SQ WEEKLY Referrals Follow up/Referrals: Provider,Referral, MD [Primary Care Provider] - See instructions Activity Restrictions/Add. Instructions Additional Instructions/Restrictions: Weight bearing as tolerated rest Ice with cold pack for 20 minutes remove may repeat for comfort every hour Ibuprofen every 6 hours as needed for pain or inflammation. If needs something more you can take Tylenol every 4 hours as needed as long as her primary care has told he was okayed for you to take both. If improving any do not need to follow-up you can bring begin exercising 2-3 weeks after injury. Follow-up immediately if new or worsening symptoms or no noticeable improvement over the next 3-5 days. call ortho if no improvement follow up with pcp if no improvement for more work up if needed Clinical Impressions Clinical Impression: Eczema, Acute hip pain Instructions Patient Instructions: DI for Atopic Dermatitis-Adult, DI for Hip Pain Discharge ED Provider: [place] ([facility])Ashu [place] HPI General Stated complaint: pain in right hip, eczema Mode of Arrival: Ambulatory Source of Information: Patient Limitations: No Limitations Time Seen by Provider: 09/25/23 14:56 Description of Symptoms (Recalled from Triage Doc. by RN): PATIENT C/O PAIN TO RIGHT HIP AREA THAT RADIATES INTO BUTTOCK AND TOP OF RIGHT LEG. SHE STATES SHE FELL APPROX 6 MONTHS AGO AND TORE SOME LIGAMENTS AND PULLED MUSCLES IN THAT HIP, AND STATES SHE TURNED WHILE GETTING OUT OF A CAR 2 DAYS AGO AND THAT'S WHEN THE PAIN STARTED. PATIENT ALSO C/O ECZEMA FLARE-UP HEENT Symptoms (Recalled from RN notes): No Resp Symptoms (Recalled from RN notes): No Skin Symptoms (Recalled from RN notes): Yes MS Symptoms (Recalled from RN notes): Yes Functional Status (Recalled from RN notes): WNL History of Present Illness Provider Complaint: 33 yr old female presents for c/o pain in right hip and eczema flare. pt states pain started after she stepped out of the car and twisted. states pain radiates down buttocks,hip and leg. states she is out of eczema meds and dont see till 09/30 Related Data Home Medications Medication Instructions Recorded Confirmed dupilumab 300 mg/2 mL subcutaneous 300 mg SQ WEEKLY 09/25/23 09/25/23 pen injector (Dupixent) ketoconazole 2 % shampoo 1 applic topical WEEKLY 09/25/23 09/25/23 Previous Rx's Medication Instructions Recorded prednisone 20 mg tablet 20 mg PO BID #10 tabs 09/25/23 Allergies Allergy/AdvReac Type Severity Reaction Status Date / Time peanut Allergy Verified 06/14/23 13:01 Worker's Comp Is this a Worker's Comp case?: No [facility] Disclaimer: The information contained in this section may have been updated after the patient was seen, as this information can be updated by other users. 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) Smoking Status: Never smoker alcohol intake: never current occupational status: employed Travel in the last 8 weeks: None ROS Obtained: Yes All systems reviewed & no additional complaints except as documented Constitutional Constitutional: Reports system reviewed and no additional complaints, except as documented Eyes Eyes: Reports system reviewed and no additional complaints, except as documented ENT Ears, Nose, Mouth, and Throat: Reports system reviewed and no additional complaints, except as documented Cardiovascular Cardiovascular: Reports system reviewed and no additional complaints, except as documented Respiratory Respiratory: Reports system reviewed and no additional complaints, except as documented Gastrointestinal Gastrointestingal: Reports system reviewed and no additional complaints, except as documented Musculoskeletal Musculoskeletal: Reports system reviewed and no additional complaints, except as documented, Reports as per HPI, Reports arthralgias, Reports limited range of motion and Reports radiating pain into limb Integumentary/Breasts Skin/Breast: Reports system reviewed and no additional complaints, except as documented, Reports as per HPI, Reports pruritus and Reports rash Endocrine Endocrine: Reports system reviewed and no additional complaints, except as documented Hematologic/Lymphatic Henatologic/Lymphatic: Reports system reviewed and no additional complaints, except as documented Allergic/Immunologic Allergic/Immunologic: Reports system reviewed and no additional complaints, except as documented Physical Exam General General appearance: alert and in no apparent distress Head Head exam: atraumatic and normal inspection Eye Eye exam: Present normal appearance and PERRL; Absent nystagmus ENT ENT exam: Present normal exam and mucous membranes moist Neck Neck exam: Present full ROM; Absent tenderness, meningismus or lymphadenopathy Respiratory Respiratory exam: Present normal lung sounds bilaterally Cardiovascular Cardiovascular exam: Present regular rate, normal rhythm and normal heart sounds Abdominal Exam Abdominal exam: Absent tenderness Extremities Exam Extremities exam: Present normal inspection and full ROM Back Exam Back exam: Present normal inspection and full ROM; Absent tenderness Back 1 view image: 1. tender Neurological Exam Neurological exam: Present alert and oriented X3; Absent motor sensory deficit Psychiatric Psychiatric exam: Present normal affect and normal mood Skin Skin exam: Present warm, dry, normal color and rash (fuad arms,dry red rash) Medical Decision Making Medical Records Medical records reviewed: Yes I reviewed the patient's medical records. Christopher Inquiry Pt receiving controlled substance: No Christopher was queried for this patient: No Vital Signs: 09/25/23 14:30 Temperature 98.4 F Temperature Source Oral Pulse Rate [Left Brachial] 80 Respiratory Rate 20 Blood Pressure [Left Arm] 132/78 Blood Pressure Mean [Left Arm] 96 Blood Pressure Source [Left Arm] Automatic Cuff Blood Pressure Position [Left Arm] Sitting 02 Sat by Pulse Oximetry 96 Oxygen Delivery Method Room Air
[2023-09-25] MEDS: DEXAMETHASONE 4MG/ML 1ML VIAL 4 MG IM (15:02)
[2023-09-25 15:05] VITALS: BP 132/78; PULSE 80; RESP 20; TEMP 36.9; O2SAT 96
== END 2023-09-25 15:13 | disposition home or self-care (01) ==
PROVIDERS: Emergency Provider Nurse Practitioner Family
DX: L30.9 Dermatitis, unspecified (principal); M25.551 Pain in right hip; X50.1XXA Overexertion from prolonged static or awkward postures, initial encounter
CPT/HCPCS: 96372; 99212; 99214; G0463; J1100

== ENCOUNTER 2023-11-16 12:30 | Emergency (ER) | payer MEDICAID, SELFPAY ==
[2023-11-16 12:32] VITALS: BP 142/78; PULSE 74; RESP 18; TEMP 36.7; O2SAT 99; BMI 40.2
--- NOTE | 2023-11-16 12:39 | PC.NURSE ---
pt ambulatory to restroom without complications
[2023-11-16 12:53] LABS: Microscopic, Urine URINE MICROSCOPIC (MICROSCOPIC)
[2023-11-16 13:08] LABS: Basophils # 0.1 K/mm3 (0-0.2); Basophils % 0.9 % (0.1-2.0); Eosinophils # 2.1 K/mm3 (0.0-0.4); Eosinophils % 17.5 % (0.1-12.0); Hematocrit 41.9 % (37.0-47.0); Hemoglobin 13.6 g/dL (12.2-16.2); Lymphocytes # 2.5 K/mm3 (0.7-4.5); Lymphocytes % 20.7 % (10-50); Mean Corpuscular HGB Conc 32.5 g/dL (31.8-35.4); Mean Corpuscular Hemoglobin 29.1 pg (27.0-31.2); Mean Corpuscular Volume 89.5 fl (81-99); Mean Platelet Volume 7.6 fl (7.4-10.4); Monocytes # 0.5 K/mm3 (0.1-1.0); Monocytes % 4.3 % (1.7-9.3); Neutrophils # 6.8 K/mm3 (1.8-7.8); Neutrophils % 56.4 % (37.0-80.0); Platelet Count 266 K/mm3 (142-424); Red Blood Count 4.68 M/mm3 (4.20-5.40); Red Cell Distribution Width 14.1 % (11.5-17.5)
--- NOTE | 2023-11-16 13:14 | ED_ITS ---
Discharge Plan Disposition Patient Disposition: Home, Self-Care Condition: Good Prescriptions Prescriptions: New prednisone 10 mg tablet 10 mg PO DIRECTED Qty: 50 0RF Rx Instructions: see taper instructions Take 40 mg daily for 5 days then 30 mg daily for 5 days then 20 mg daily for 5 days then 10 mg daily for 5 days No Action ketoconazole 2 % shampoo 1 applic TOPICAL WEEKLY Patient Comments: APPLY TOPICALLY THREE TIMES WEEKLY Dupixent Pen 300 mg/2 mL pen injector 300 mg SQ WEEKLY prednisone 20 mg tablet 20 mg PO BID Qty: 10 0RF Referrals Follow up/Referrals: Provider,Referral, MD [Primary Care Provider] - See instructions Activity Restrictions/Add. Instructions Additional Instructions/Restrictions: You were evaluated in the emergency department today. Please follow-up closely with gynecology for reassessment. Take Tylenol and ibuprofen every 4-6 hours as needed for pain. Return to the emergency department for new or worsening symptoms Clinical Impressions Clinical Impression: Lesion of right ovary, Ovarian cyst, Enlarged uterus, Pelvic pain, Eczema Stand Alone Forms Stand Alone Forms: Work/School Release Instructions Patient Instructions: DI for Ovarian Cyst, DI for Acute Abdominal Pain Print Language Print Language: Latvian Discharge ED Provider: Shona Mota General Adult HPI General Chief complaint: Abdominal Pain Stated complaint: abd pain, bleeding, cramps Time Seen by Provider: 11/16/23 12:49 Mode of Arrival: Ambulatory Source of Information: Patient Limitations: No Limitations Description of Symptoms (Recalled from ER Triage Doc. by RN): Patient reports having her period approx 1.5 weeks ago and last night she began to have cramping and passed a blood clot. States that the bleeding has gotten better but is still there. Also reporting a breakout of her ezema. History of Present Illness HPI narrative: This patient is a 33-year-old female with a history of obesity, eczema, and asthma presenting to the emergency department for evaluation with concern for lower abdominal pain, cramping, and bleeding. Patient states that about a week and a half ago, she had a period. This was normal for her, however last night she started to have significant cramping and vaginal bleeding. She states that she passed a large blood clot. The pain was much worse last night, and today is 5 out of 10. It is slightly improved and the bleeding is slowed down, but she still having pain. Pain is worse in the left lower quadrant but is also suprapubic. No urinary symptoms noted. She notes this happened before and she thought she was having miscarriage, but she was told that she had an ovarian cyst. She is not sure if that is what is going on this time. She also notes that she is having an eczema flareup on her left upper extremity and states that she typically requires a steroid shot and steroid taper for this. No other concerns noted at this time. Related Data Home Medications ?Medication ?Instructions ?Recorded ?Confirmed dupilumab 300 mg/2 mL subcutaneous 300 mg SQ WEEKLY 09/25/23 09/25/23 pen injector (DupixYek Mobile) ketoconazole 2 % shampoo 1 applic topical WEEKLY 09/25/23 09/25/23 Previous Rx's ?Medication ?Instructions ?Recorded prednisone 20 mg tablet 20 mg PO BID #10 tabs 09/25/23 prednisone 10 mg tablet 10 mg PO DIRECTED #50 tabs 11/16/23 Allergies Allergy/AdvReac Type Severity Reaction Status Date / Time peanut Allergy Verified 06/14/23 13:01 [facility] Disclaimer: The information contained in this section may have been updated after the patient was seen, as this information can be updated by other users. 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 Eczema Asthma Anemia Depression Anxiety Hypertension Surgical History No significant past surgical history Family History Other No significant family history Social History Smoking Status: Current every day smoker alcohol intake: never current occupational status: employed Travel in the last 8 weeks: None ROS Obtained: Yes All systems reviewed & no additional complaints except as documented Physical Exam General General appearance: alert and in no apparent distress Head Head exam: atraumatic and normocephalic Eye Eye exam: Present normal appearance, PERRL and EOMI ENT ENT exam: Present normal exam, normal oropharynx, mucous membranes moist and normal external ear exam Neck Neck exam: Present normal inspection, full ROM and trachea midline; Absent tenderness Chest Chest inspection: Present normal inspection and symmetric chest wall rise; Absent tenderness Respiratory Respiratory exam: Present normal lung sounds bilaterally; Absent respiratory distress, wheezes, stridor or accessory muscle use Cardiovascular Cardiovascular exam: Present regular rate and normal rhythm Abdominal Exam Abdominal exam: Present soft; Absent distention, tenderness or guarding Extremities Exam Extremities exam: Present normal inspection, full ROM and normal capillary refill; Absent tenderness or edema Back Exam Back exam: Present normal inspection and full ROM; Absent tenderness Neurological Exam Neurological exam: Present alert, oriented X3, CN II-XII intact and normal gait; Absent motor sensory deficit Psychiatric Psychiatric exam: Present normal affect and normal mood Skin Skin exam: Present warm and dry Medical Decision Making Medical Records Medical records reviewed: Yes I reviewed the patient's medical records. Christopher Inquiry Pt receiving controlled substance: No Vital Signs: 11/16/23 12:32 11/16/23 15:59 Temperature 98.1 F 98.0 F Temperature Source Oral Pulse Rate 70 Pulse Rate [Radial] 74 Respiratory Rate 18 16 Blood Pressure 130/78 Blood Pressure [Right Arm] 142/78 H Blood Pressure Mean [Right Arm] 99 Blood Pressure Source [Right Arm] Automatic Cuff Blood Pressure Position [Right Arm] Sitting 02 Sat by Pulse Oximetry 99 Oxygen Delivery Method Room Air Room Air Lab Data Lab results reviewed: Yes I reviewed the patient's lab results. Lab Results 11/16/23 12:38: Urine Color Yellow, Urine Appearance Clear, Urine pH 7.0, Ur Specific [place] 1.020, Urine Protein Negative, Urine Glucose (UA) Negative, Urine Ketones Negative, Urine Blood 3+ A, Urine Nitrate Negative, Urine Bilirubin Negative, Urine Urobilinogen 0.2, Ur Leukocyte Esterase Negative, Urine RBC 20-50, Urine WBC Occasional, Ur Squamous Epith Cells 3-5, Urine Bacteria Trace 11/16/23 12:56: WBC 12.0 H, RBC 4.68, Hgb 13.6, Hct 41.9, MCV 89.5, MCH 29.1, MCHC 32.5, RDW 14.1, Plt Count 266, MPV 7.6, Neut % (Auto) 56.4, Lymph % (Auto) 20.7, [place] % (Auto) 4.3, Eos % (Auto) 17.5 H, Baso % (Auto) 0.9, Neut # (Auto) 6.8, Lymph # (Auto) 2.5, [place] # (Auto) 0.5, Eos # (Auto) 2.1 H, Baso # (Auto) 0.1, Sodium 138, Potassium 3.9, Chloride 111 H, Carbon Dioxide 26, Anion Gap 4.9 L, BUN 7, Creatinine 0.40 L, Estimated Creat Clear 318 H, Estimated GFR 185, Est GFR ( Amer) 224, Glucose 98, Calcium 8.8, Total Bilirubin 0.4, AST 24, ALT 16, Alkaline Phosphatase 63, Total Protein 7.0, Albumin 3.8, Globulin 3.2, Albumin/Globulin Ratio 1.2, Lipase 49, HCG, Quant < 2 11/16/23 12:56 11/16/23 12:56 Orders (Tests/Meds): ED MEDICATIONS Discontinued Medications Generic Name Dose Route Start Last Admin Trade Name Freq PRN Reason Stop Dose Admin Acetaminophen 1,000 mg 11/16/23 14:16 11/16/23 14:20 Acetaminophen 500mg Tab PO 11/16/23 14:17 1,000 mg ONCE ONE Administration Ketorolac Tromethamine 15 mg 11/16/23 14:16 11/16/23 14:20 Ketorolac 30mg/Ml Vial IV 11/16/23 14:17 15 mg ONCE ONE Administration ORDERS Category Date Time Status US transvaginal Stat Exams 11/16/23 14:16 Completed CBC w/Auto Diff [Complete Blood Count Auto Diff] Stat Lab 11/16/23 12:56 Completed CMP [Comprehensive Metabolic Panel] Stat Lab 11/16/23 12:56 Completed HCG,Quantitative Stat Lab 11/16/23 12:56 Completed Lipase Stat Lab 11/16/23 12:56 Completed UA [Urinalysis and Microscopic] Stat Lab 11/16/23 12:38 Completed Medical Decision Narrative: In summary, this patient is a 33-year-old female presenting to the Emergency Department for evaluation of lower abdominal pain and cramping as well as vaginal bleeding. Differential diagnoses considered include but are not limited to , miscarriage, ectopic , ovarian cyst, ovarian torsion, dysfunctional uterine bleeding, endometriosis. Ruling out the most morbid conditions drove assessment. It should be noted patient's history includes obesity and eczema which are not at goal therapy. This complicates all aspects of care by increasing patient's risk for morbidity. On exam, the patient is well-appearing. She has eczema flareup on her left upper extremity, but otherwise exam is reassuring. workup included CBC, CMP, hCG, urinalysis, and transvaginal ultrasound. I independently interpreted ultrasound prior to the radiologist read and noted ovarian cyst but the patient has good flow. Please see their read for final interpretation. Labs were obtained that demonstrated mild leukocytosis without other acutely concerning abnormalities. test negative. Blood and urine in the setting of vaginal bleeding but no evidence of infection On reassessment, patient had good improvement after administration of Toradol. She is resting company with benign abdominal exam and normal vital signs on cardiac telemetry. Ultimately, I feel that she is appropriate for discharge home with close follow-up with gynecology as well as prednisone taper for her eczema. She was provided with prescription for this. Strict return precautions were given and she was discharged after all questions were answered. Critical Care Critical Care Time Critical Care Time: No
[2023-11-16 13:17] LABS: Alanine Aminotransferase 16 U/L (12-78); Albumin Level 3.8 g/dl (3.5-5.0); Albumin/Globulin Ratio 1.2 (1.1-1.8); Alkaline Phosphatase 63 U/L (38-126); Anion Gap 4.9 mEq/L (5-15); Aspartate Amino Transferase 24 U/L (14-36); Bilirubin,Total 0.4 mg/dl (0.2-1.3); Blood Urea Nitrogen 7 mg/dl (7-17); Calcium 8.8 mg/dl (8.4-10.2); Carbon Dioxide 26 mmol/L (22.0-30.0); Chloride 111 mmol/L (98-107); Creatinine Clearance Estimated 318 mL/min (50-200); Estimated Glomerular Filt Rate 185 ml/min (>60); GFR (African American) 224 ML/MIN (>60); Globulin 3.2 g/dL (1.3-3.2); Glucose 98 mg/dl (74-100); Lipase 49 U/L (23-300); Potassium 3.9 mmoL/L (3.5-5.1); Sodium 138 mmol/L (136-145)
[2023-11-16 13:22] LABS: Appearance,Urine CLEAR (Clear); Bilirubin,Urine Negative (Negative); Blood, Urine 3+ (Negative); Color,Urine YELLOW (Yellow); Glucose,Urine (UA) Negative (Negative); Ketones,Urine Negative (Negative); Leukocyte Esterase,Urine Negative (Negative); Nitrate,Urine Negative (Negative); Protein,Urine Negative (Negative); Urobilinogen,Urine 0.2 EU/dl (0.2)
[2023-11-16 13:34] LABS: HCG,Quantitative < 2 mIU/ml (0-5.42)
[2023-11-16 13:38] LABS: Bacteria,Urine Trace /lpf; RBC,Urine 20-50 #/hpf (0-3); WBC,Urine Occasional #/hpf (0-3)
--- NOTE | 2023-11-16 14:16 | US_ITS ---
PROCEDURE INFORMATION: Exam: US Pelvis, Transvaginal, Non-Obstetric Exam date and time: 11/16/2023 2:28 PM Age: 33 years old Clinical indication: Pelvic pain; Additional info: Llq pain h/o cyst TECHNIQUE: Imaging protocol: Real-time transvaginal pelvic (non-obstetric) ultrasound with image documentation. Transvaginal imaging was used for better evaluation of the endometrium, adnexa, and/or cervix. COMPARISON: CR XR HIP RT 2-3V W/PELVIS 03/11/2023 1:37 AM FINDINGS: Uterus: 9.4 x 4.7 x 5.2 cm in length, AP and transverse dimensions. Endometrial complex measuring 0.4 cm small focal region of heterogeneity within the endometrial complex. No definite polyp identified. Right ovary/adnexa: 3 x 2.5 x 1.6 cm in length, transverse in AP dimensions. Demonstration of 1.2 x 1 cm heterogeneous focus within the right ovary. Peripheral hypervascular rim. Findings most compatible with right corpus luteum cyst. Left ovary/adnexa: 2.5 x 2.2 x 1 cm in length, transverse in AP dimensions. Left ovary unremarkable. Urinary bladder: Urinary bladder is limited. Intraperitoneal space: No free fluid. IMPRESSION: Findings most compatible with right corpus luteum cyst.
[2023-11-16] MEDS: ACETAMINOPHEN 500MG TAB 1000 MG PO (14:20)
[2023-11-16] MEDS: KETOROLAC 30MG/ML VIAL 15 MG IV (14:20)
--- NOTE | 2023-11-16 14:27 | PC.NURSE ---
pt to US via wheelchair
--- NOTE | 2023-11-16 14:55 | PC.NURSE ---
returned from ultrasound via [employer]
[2023-11-16 15:59] VITALS: BP 130/78; PULSE 70; RESP 16; TEMP 36.7; O2SAT 98
[2023-11-18 04:16] LABS: Neisseria gonorrhoeae, NAA Negative (Negative)
== END 2023-11-16 16:00 | disposition home or self-care (01) ==
PROVIDERS: Emergency Provider Emergency Medicine
DX: N83.201 Unspecified ovarian cyst, right side (principal); R10.2 Pelvic and perineal pain; N85.2 Hypertrophy of uterus; R10.32 Left lower quadrant pain; J45.909 Unspecified asthma, uncomplicated; D64.9 Anemia, unspecified; I10 Essential (primary) hypertension; F17.200 Nicotine dependence, unspecified, uncomplicated
CPT/HCPCS: 76830; 80053; 81001; 83690; 84702; 85025; 87491; 87591; 96374; 99285; J1885

== ENCOUNTER 2024-03-09 11:06 | Emergency (ER) | payer MEDICAID, SELFPAY ==
[2024-03-09 12:35] VITALS: BP 147/81; PULSE 106; RESP 20; TEMP 37.3; O2SAT 96; BMI 40.2
--- NOTE | 2024-03-09 12:45 | ED_ITS ---
Discharge Plan Disposition Patient Disposition: Home, Self-Care Condition: Good Prescriptions Prescriptions: New oseltamivir [Tamiflu] 75 mg capsule 75 mg PO BID 5 Days Qty: 10 0RF methylprednisolone [Medrol (Tyson)] 4 mg tablets,dose pack See Rx Instructions .Route .COMPLEX 6 Days Qty: 21 0RF Rx Instructions: taper pack; ondansetron 4 mg tablet,disintegrating 4 mg PO Q8H PRN (Reason: nausea and vomiting) Qty: 10 0RF No Action triamcinolone acetonide 0.1 % cream topical Patient Comments: WHEN FLARED, APPLY A THIN LAYER TO AFFECTED AREAS ON BODY TWICE DAILY FOR 2 WEEKS. THEN STOP FOR 1 WEEK. REPEAT NEEDED FOR FLARES methotrexate sodium 2.5 mg tablet 2.5 mg PO WEEKLY Patient Comments: TAKE 6 TABLETS BY MOUTH ONCE A WEEK folic acid 1 mg tablet PO Patient Comments: TAKE 1 TABLET BY MOUTH ONCE DAILY EXCEPT ON DAY YOU TAKE METHOTREXATE. clobetasol 0.05 % ointment topical Patient Comments: APPLY OINTMENT TOPICALLY TO AFFECTED AREA TWICE DAILY UP TO 14 DAYS WHEN FLARED, STOP FOR 7 DAYS, REPEAT NEEDED clobetasol 0.05 % solution topical Patient Comments: APPLY TO SCALP ONCE DAILY AT BEDTIME FOR 3 WEEKS.TAKE ONE WEEK BREAK AND REPEAT NEEDED FOR ITCHING Referrals Follow up/Referrals: Provider,Referral, MD [Primary Care Provider] - See instructions Activity Restrictions/Add. Instructions Additional Instructions/Restrictions: * Start Tamiflu today if you are going to take it. Discussed risk and possible benefits. * Lots of rest * Increase Fluids water, Gatorade, powerade, pedialyte,if /toddler/child * Alternate Tylenol and / or ibuprofen as discussed for fever, aches, chills Follow up IMMEDIATELY with your family doctor for new or worsening Symptoms OR no noticeable improvement over the next 48-72 hours, 911 for difficulty or breathing * You or your child area contagious until no fever, aches, chills for 24 hours with medication for symptoms * Help Prevent the spread of influenza: * ?Wash your hands often. Use soap and water. Wash your hands after you use the bathroom, change a child's diapers, or sneeze. Wash your hands before you prepare or eat food. Use gel hand cleanser that has 60% alcohol, when soap and water are not available. Do not touch your eyes, nose, or mouth unless you have washed your hands first. * Cover your mouth when you sneeze or cough. Cough into a tissue or the bend of your arm. If you use a tissue, throw it away immediately and wash your hands. * Clean shared items with a germ-killing vacuum cleaner repair person. Clean table surfaces, doorknobs, and light switches. Do not share towels, silverware, and dish es with people who are sick. Wash bed sheets, towels, silverware, and dishes with soap and water. * Wear a mask over your mouth and nose if you are sick. The face mask may help protect others from becoming infected with the flu. Wear the mask when in common areas of your home or if you seek care with a healthcare provider. * Stay away from others if you are sick. Stay at home until 24 hours after your fever and symptoms are gone. Clinical Impressions Clinical Impression: Influenza Instructions Patient Instructions: DI for Influenza -- Adult, Influenza Print Language Print Language: Indian Discharge ED Provider: Ana Cota [facility] HPI General Stated complaint: v/d fever cough congestion Mode of Arrival: Ambulatory Source of Information: Patient Limitations: No Limitations Time Seen by Provider: 03/09/24 12:45 Description of Symptoms (Recalled from Triage Doc. by RN): PATIENT C/O VOMITING, DIARRHEA, FEVER, AND GREEN MUCOUS/DRAINAGE FOR APPROX 1 WEEK HEENT Symptoms (Recalled from RN notes): No Resp Symptoms (Recalled from RN notes): No Skin Symptoms (Recalled from RN notes): No MS Symptoms (Recalled from RN notes): No Functional Status (Recalled from RN notes): WNL History of Present Illness Provider Complaint: Patient states that she has been fighting sinus congestion and pressure for over a week and thinks it has her asthma triggered States that for last couple of days it is worse, she has been having fevers on and off, cough, wheezing at times and has been using her nebulizer and inhalers States that she has also had some N/V/D from the mucous States today she came in to get checked and get something to help Related Data Home Medications ?Medication ?Instructions ?Recorded ?Confirmed triamcinolone acetonide 0.1 % applic topical 01/11/24 02/23/24 topical cream clobetasol 0.05 % scalp solution topical 02/23/24 02/23/24 clobetasol 0.05 % topical ointment topical 02/23/24 02/23/24 folic acid 1 mg tablet PO 02/23/24 02/23/24 methotrexate sodium 2.5 mg tablet 2.5 mg PO WEEKLY 02/23/24 02/23/24 Previous Rx's ?Medication ?Instructions ?Recorded methylprednisolone 4 mg tablets in See Rx Instructions .Route 03/09/24 a dose pack (Medrol (Tyson)) .COMPLEX 6 days #21 tabs ondansetron 4 mg disintegrating 4 mg PO Q8H PRN nausea and 03/09/24 tablet vomiting #10 tabs oseltamivir 75 mg capsule (Tamiflu) 75 mg PO BID 5 days #10 caps 03/09/24 Allergies Allergy/AdvReac Type Severity Reaction Status Date / Time peanut Allergy Verified 02/23/24 08:33 Worker's Comp Is this a Worker's Comp case?: No [facility] Disclaimer: The information contained in this section may have been updated after the patient was seen, as this information can be updated by other users. 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 (Updated 03/09/24 @ 13:08 by Ana Cota APRN) LGSIL on Pap smear of cervix Eczema Asthma Anemia Depression Anxiety Hypertension Surgical History [place] teeth extracted History of cataract surgery Family History Mother Cancer ovarian Grandmother Cancer maternal-breast Social History Smoking Status: Never smoker alcohol intake: never current occupational status: employed Travel in the last 8 weeks: None Have you lived/traveled outside US in past 30 days?: No Contact w/someone who lives/traveled outside US past 30 days?: No Exposure to someone with infectious disease in past 14 days?: No Do you have a fever (greater than 100.4 F or 38 C)?: No Have you tested positive for COVID-19: No Exposed to someone with COVID-19 in past 14 days?: No Do you have a sore throat?: Yes Do you have a cough?: Yes Do you have any weakness?: Yes Do you have any diarrhea?: No Are you experiencing any unusual bleeding?: No Do you have any muscle aches/pain?: No Do you have any abdominal pain?: No Are you experiencing loss of taste or smell?: No ROS Obtained: Yes All systems reviewed & no additional complaints except as documented and Yes Systems reviewed as appropriate & no additional complaints except as documented Constitutional Constitutional: Reports system reviewed and no additional complaints, except as documented, Reports as per HPI, Reports fever(s) and Reports headache(s) ENT Ears, Nose, Mouth, and Throat: Reports system reviewed and no additional complaints, except as documented, Reports as per HPI, Reports headache(s), Reports sinus pain and Reports sinus pressure Cardiovascular Cardiovascular: Reports system reviewed and no additional complaints, except as documented and Reports as per HPI Respiratory Respiratory: Reports system reviewed and no additional complaints, except as documented, Reports as per HPI, Reports cough and Reports wheezing (hx of asthma) Gastrointestinal Gastrointestingal: Reports system reviewed and no additional complaints, except as documented, as per HPI, diarrhea, nausea and vomiting Neurologic Neurologic: Reports headache(s) Allergic/Immunologic Allergic/Immunologic: Reports wheezing (hx of asthma) Physical Exam General General appearance: alert and in no apparent distress ENT ENT exam: Present mucous membranes moist Expanded ENT Exam Nose exam: Present sinus tenderness Throat exam: Present other (PND noted) Respiratory Respiratory exam: Present normal lung sounds bilaterally and wheezes (mild); Absent respiratory distress Cardiovascular Cardiovascular exam: Present regular rate, normal rhythm and normal heart sounds Abdominal Exam Abdominal exam: Present soft and normal bowel sounds; Absent distention or tenderness Neurological Exam Neurological exam: Present alert, oriented X3 and normal gait Medical Decision Making Medical Records Screening: Per USPSTF and CDC recommendations, given the prevalence of disease in our region, it is our hospital?s policy to screen for HIV and viral Hepatitis for all patients aged 18 and over and those with ongoing risk factors. Christopher Inquiry Pt receiving controlled substance: No Christopher was queried for this patient: No Vital Signs: 03/09/24 12:35 Temperature 99.2 F Temperature Source Oral Pulse Rate [Left Brachial] 106 H Respiratory Rate 20 Blood Pressure [Left Arm] 147/81 H Blood Pressure Mean [Left Arm] 103 Blood Pressure Source [Left Arm] Automatic Cuff Blood Pressure Position [Left Arm] Sitting 02 Sat by Pulse Oximetry 96 Oxygen Delivery Method Room Air Lab Data Lab results reviewed: Yes I reviewed the patient's lab results.
[2024-03-09 13:07] LABS: UTC Strep Screen (Rapid) Negative (Negative)
[2024-03-09 13:08] LABS: UTC Influenza A Antigen Positive (Negative); UTC Influenza B Antigen Negative (Negative)
[2024-03-09 13:10] VITALS: BP 147/81; PULSE 106; RESP 20; TEMP 37.3; O2SAT 96
== END 2024-03-09 13:14 | disposition home or self-care (01) ==
PROVIDERS: Emergency Provider Nurse Practitioner
DX: J10.1 Influenza due to other identified influenza virus with other respiratory manifestations (principal)
CPT/HCPCS: 87804; 87880; 99213; G0381

== ENCOUNTER 2024-07-17 18:50 | Emergency (ER) | payer MEDICAID, SELFPAY ==
[2024-07-17] VITALS (7 sets, daily range): BP systolic 132–149; BP diastolic 78–102; PULSE 78–99; RESP 17–20; TEMP 36.6–36.7; O2SAT 94–100; BMI 39.9
[2024-07-17 19:14] LABS: Basophils % 0.3 % (0.1-2.0); Eosinophils % 0.1 % (0.1-12.0); Hematocrit 42.9 % (37.0-47.0); Hemoglobin 14.7 g/dL (12.2-16.2); Lymphocytes # 1.8 K/mm3 (0.7-4.5); Lymphocytes % 11.6 % (10-50); Mean Corpuscular HGB Conc 34.3 g/dL (31.8-35.4); Mean Corpuscular Hemoglobin 29.5 pg (27.0-31.2); Mean Corpuscular Volume 86.1 fl (81-99); Mean Platelet Volume 9.4 fl (7.4-10.4); Monocytes % 6.6 % (1.7-9.3); Neutrophils # 12.2 K/mm3 (1.8-7.8); Nucleated Red Blood Cells # 0 10^3/uL; Nucleated Red Blood Cells % 0 %; Platelet Count 363 K/mm3 (142-424); Red Blood Count 4.98 M/mm3 (4.20-5.40); Red Cell Distribution Width 13.8 % (11.5-17.5); Red Cell Distribution Width-SD 43.8 fL; White Blood Count 15.1 K/mm3 (4.8-10.8)
[2024-07-17] MEDS: METOCLOPRAMIDE HCL 10MG/2ML VIAL 10 MG IVP (19:18)
[2024-07-17] MEDS: LACTATED RINGERS 1000ML 1,000 ML 999 ML IV (19:18)
[2024-07-17] MEDS: diphenhydrAMINE 50MG/ML VIAL 25 MG IV (19:18)
--- NOTE | 2024-07-17 19:20 | ECG_ITS ---
APPROVED REPORT Exam: Resting ECG HR:89 bpm ECG Measurements Heart Rate 89 AXES KS 162 P 51 QRSd 100 QRS 25 QT 355 T 54 QTc 402 Conclusion Sinus rhythm Electronically signed by : MARTIN HUERTAS, 07/18/2024 23:08:53
--- NOTE | 2024-07-17 19:31 | ED_ITS ---
Discharge Plan Disposition Patient Disposition: Home, Self-Care Prescriptions Prescriptions: New ondansetron 4 mg tablet,disintegrating 4 mg PO Q6H PRN (Reason: nausea and vomiting) Qty: 10 0RF metoclopramide HCl [Reglan] 10 mg tablet 10 mg PO Q6H PRN (Reason: nausea and vomiting) Qty: 30 0RF Discontinued oseltamivir [Tamiflu] 75 mg capsule 75 mg PO BID 5 Days Qty: 10 0RF ondansetron 4 mg tablet,disintegrating 4 mg PO Q8H PRN (Reason: nausea and vomiting) Qty: 10 0RF No Action triamcinolone acetonide 0.1 % cream topical Patient Comments: WHEN FLARED, APPLY A THIN LAYER TO AFFECTED AREAS ON BODY TWICE DAILY FOR 2 WEEKS. THEN STOP FOR 1 WEEK. REPEAT NEEDED FOR FLARES methotrexate sodium 2.5 mg tablet 2.5 mg PO WEEKLY Patient Comments: TAKE 6 TABLETS BY MOUTH ONCE A WEEK folic acid 1 mg tablet PO Patient Comments: TAKE 1 TABLET BY MOUTH ONCE DAILY EXCEPT ON DAY YOU TAKE METHOTREXATE. clobetasol 0.05 % ointment topical Patient Comments: APPLY OINTMENT TOPICALLY TO AFFECTED AREA TWICE DAILY UP TO 14 DAYS WHEN FLARED, STOP FOR 7 DAYS, REPEAT NEEDED clobetasol 0.05 % solution topical Patient Comments: APPLY TO SCALP ONCE DAILY AT BEDTIME FOR 3 WEEKS.TAKE ONE WEEK BREAK AND REPEAT NEEDED FOR ITCHING methylprednisolone [Medrol (Tyson)] 4 mg tablets,dose pack See Rx Instructions .Route .COMPLEX 6 Days Qty: 21 0RF Rx Instructions: taper pack; Referrals Follow up/Referrals: Provider,Referral, MD [Primary Care Provider] - See instructions Activity Restrictions/Add. Instructions Additional Instructions/Restrictions: Call your family doctor to establish care for this visit to the emergency department and schedule follow-up within 48 hours to ensure improvement. If you have any worsening of your condition or any other concerning signs or symptoms, return to the emergency department or your primary care doctor for further evaluation. Reglan every 6 hours to prevent vomiting and help with gastroparesis. Zofran as a rescue medication, do not routinely take them together because they can cause complications. Clinical Impressions Clinical Impression: Vomiting, Side effect of drug Instructions Patient Instructions: DI for Syncope in Adults (Fainting), DI for Syncope in Children (Fainting) Print Language Print Language: [place] Discharge ED Provider: Pradip Duron General Adult HPI General Chief complaint: Syncope Stated complaint: SOA Time Seen by Provider: 07/17/24 18:54 Mode of Arrival: Ambulatory Source of Information: Patient Description of Symptoms (Recalled from ER Triage Doc. by RN): pt to the ED with nausea, vomiting and syncopal episode at home after taking her wegovy injection for the first time. pt reports she hit her head in the front and has a small red area on her forehead. History of Present Illness HPI narrative: Please note that above description of symptoms, in this electronic medical record under categorization of recalled from ER triage doctor by RN are reflective of an initial nursing assessment, however, is not reflective of my full history and physical exam that was personally taken and clarified. Consequentially, this preceding description of symptoms, which may include the patient's categorized chief complaint in the EMR, do not reflect my personal clinical impression, and the ultimate description of history of present illness and patient stated complaints should be deferred to this section of the note. Unless stated otherwise or congruent with this section of the note, additional signs, symptoms, or incongruence should be interpreted as inaccurate with my clinical impression. Related Data Home Medications ?Medication ?Instructions ?Recorded ?Confirmed triamcinolone acetonide 0.1 % applic topical 01/11/24 02/23/24 topical cream clobetasol 0.05 % scalp solution topical 02/23/24 02/23/24 clobetasol 0.05 % topical ointment topical 02/23/24 02/23/24 folic acid 1 mg tablet PO 02/23/24 02/23/24 methotrexate sodium 2.5 mg tablet 2.5 mg PO WEEKLY 02/23/24 02/23/24 Previous Rx's ?Medication ?Instructions ?Recorded methylprednisolone 4 mg tablets in See Rx Instructions .Route 03/09/24 a dose pack (Medrol (Tyson)) .COMPLEX 6 days #21 tabs metoclopramide HCl 10 mg tablet 10 mg PO Q6H PRN nausea and 07/17/24 (Reglan) vomiting #30 tabs ondansetron 4 mg disintegrating 4 mg PO Q6H PRN nausea and 07/17/24 tablet vomiting #10 tabs Allergies Allergy/AdvReac Type Severity Reaction Status Date / Time peanut Allergy Verified 02/23/24 08:33 [facility] Disclaimer: The information contained in this section may have been updated after the patient was seen, as this information can be updated by other users. 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 (Updated 07/17/24 @ 20:50 by Pradip Duron MD) LGSIL on Pap smear of cervix Eczema Asthma Anemia Depression Anxiety Hypertension Surgical History [place] teeth extracted History of cataract surgery Family History Mother Cancer ovarian Grandmother Cancer maternal-breast Social History Smoking Status: Former smoker alcohol intake: never current occupational status: employed Travel in the last 8 weeks?: None Have you lived/traveled outside US in past 30 days?: No Contact w/someone who lives/traveled outside US past 30 days?: No Exposure to someone with infectious disease in past 14 days?: No Do you have a fever (greater than 100.4 F or 38 C)?: No Have you tested positive for COVID-19?: No Exposed to someone with COVID-19 in past 14 days?: No Do you have a sore throat?: No Do you have a cough?: No Do you have any weakness?: No Do you have any diarrhea?: No Are you experiencing any unusual bleeding?: No Do you have any muscle aches/pain?: No Do you have any abdominal pain?: No Are you experiencing loss of taste or smell?: No Other 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 Have you received the Flu Vaccine for this season: No Have you received the Pneumonia Vaccine: No ROS Obtained: Yes All systems reviewed & no additional complaints except as documented Physical Exam General General appearance: alert Head Head exam: atraumatic and normocephalic Eye Eye exam: Present normal appearance, PERRL and EOMI Neck Neck exam: Present normal inspection, full ROM and trachea midline Respiratory Respiratory exam: Absent respiratory distress, wheezes, stridor, accessory muscle use or prolonged expiratory phase Cardiovascular Cardiovascular exam: Present other (Pulses equal symmetric in upper and lower extremities) Abdominal Exam Abdominal exam: Present soft; Absent distention, tenderness or pulsatile mass Extremities Exam Extremities exam: Absent edema Neurological Exam Neurological exam: Present alert, oriented X3 and CN II-XII intact; Absent motor sensory deficit Skin Skin exam: Present warm and dry; Absent diaphoresis or erythema Medical Decision Making Medical Records Medical records reviewed: Yes I reviewed the patient's medical records. Screening: Per USPSTF and CDC recommendations, given the prevalence of disease in our region, it is our hospital?s policy to screen for HIV and viral Hepatitis for all patients aged 18 and over and those with ongoing risk factors. Christopher Inquiry Pt receiving controlled substance: No Christopher was queried for this patient: No Vital Signs: 07/17/24 18:59 07/17/24 19:23 07/17/24 19:30 Temperature 97.9 F Temperature Source Oral Pulse Rate 95 H 99 H Pulse Rate [Left Radial] 91 H Respiratory Rate 17 Blood Pressure 149/96 H 133/102 H Blood Pressure [Right Arm] 132/78 Blood Pressure Mean [Right Arm] 96 Blood Pressure Source [Right Arm] Automatic Cuff Blood Pressure Position [Right Arm] Sitting 02 Sat by Pulse Oximetry 98 99 100 Oxygen Delivery Method Room Air Room Air Room Air 07/17/24 20:00 Temperature Temperature Source Pulse Rate 78 Pulse Rate [Left Radial] Respiratory Rate Blood Pressure 133/92 H Blood Pressure [Right Arm] Blood Pressure Mean [Right Arm] Blood Pressure Source [Right Arm] Blood Pressure Position [Right Arm] 02 Sat by Pulse Oximetry 96 Oxygen Delivery Method Room Air Lab Data Lab Results 07/17/24 19:03: WBC 15.1 H, RBC 4.98, Hgb 14.7, Hct 42.9, MCV 86.1, MCH 29.5, MCHC 34.3, RDW 13.8, Plt Count 363, MPV 9.4, Neut % (Auto) 81.0 H, Lymph % (Auto) 11.6, Mower % (Auto) 6.6, Eos % (Auto) 0.1, Baso % (Auto) 0.3, Neut # (Auto) 12.2 H, Lymph # (Auto) 1.8, Mower # (Auto) 1.0, Eos # (Auto) 0.0, Baso # (Auto) 0.0, Sodium 137, Potassium 3.6, Chloride 109 H, Carbon Dioxide 18 L, Anion Gap 13.6, BUN 12, Creatinine 0.50 L, Estimated Creat Clear 275, Estimated GFR 142, Est GFR ( Amer) 172, Glucose 87, Calcium 9.6, Total Bilirubin 0.7, AST 32, ALT 24, Alkaline Phosphatase 90, Total Protein 8.0, Albumin 4.8, Globulin 3.2, Albumin/Globulin Ratio 1.5, Lipase 202, HCG, Quant < 2 07/17/24 19:03 07/17/24 19:03 Orders (Tests/Meds): ED MEDICATIONS Discontinued Medications Generic Name Dose Route Start Last Admin Trade Name Freq PRN Reason Stop Dose Admin Diphenhydramine HCl 25 mg 07/17/24 18:58 07/17/24 19:18 Diphenhydramine 50mg/Ml Vial IV 07/17/24 18:59 25 mg ONCE ONE Administration Lactated Ringer's 1,000 mls @ 999 mls/hr 07/17/24 18:58 07/17/24 19:18 Lactated Ringer's 1000 Ml Bag IV 07/17/24 19:58 999 mls/hr .Q1H1M ONE Administration Metoclopramide HCl 10 mg 07/17/24 18:58 07/17/24 19:18 Metoclopramide Hcl 10mg/2ml Vial IVP 07/17/24 18:59 10 mg ONCE ONE Administration ORDERS Category Date Time Status CBC w/Auto Diff [Complete Blood Count Auto Diff] Stat Lab 07/17/24 19:03 Completed CMP [Comprehensive Metabolic Panel] Stat Lab 07/17/24 19:03 Completed HCG,Quantitative Stat Lab 07/17/24 19:03 Completed HIV Combo Stat Lab 07/17/24 19:03 Received Hepatitis C Ab Qual. W/ RFX Stat Lab 07/17/24 19:03 Received Lipase Stat Lab 07/17/24 19:03 Completed UA [Urinalysis and Microscopic] Stat Lab 07/17/24 20:24 Received Medical Decision Narrative: 34-year-old female presenting with vomiting and headache. Yesterday, 07/16, she took a GLP-1 agonist injection of her friends at the maximum dose. Has not had any introduction to this medication in the past. Almost immediately afterward, she states that she started having vomiting, nonbloody, nonbilious followed by headache due to all of the retching. Has not been able to keep almost anything down in the last 24 hours. No fevers or chills, no abdominal pain other than when she is vomiting she does have epigastric cramping. No diarrhea, fevers, chills, or other concerning symptoms. She states that she has had 2 episodes of passing out due to all the vomiting and fluid loss and struck her forehead once, but remembers the incidennts. History was obtained via conversation with patient. On arrival, patient hemodynamically stable, alert, oriented x4, appropriate, GCS 15, moving all extremities spontaneously, pupils equal and reactive to light. Full physical exam performed and significant for uncomfortable appearing obese female in no acute distress. Abdomen is soft, nontender, nondistended to deep palpation. She is borderline tachycardic, normotensive, speak in full sentences, not actively retching. Grossly neurologically intact. Differential includes medication side effect, metabolic abnormality, endocrinologic abnormality, ingestion, , among others. Patient placed on continuous cardiac monitoring and continuous pulse ox with initial blood pressure 132/78, heart rate 91, saturation 98% on room air. Independent interpretation of EKG shows sinus rhythm 89 bpm with DE interval 162, QRS 100, QTc 402. No acute ischemic changes. Patient was given Benadryl and Reglan, fluids for symptomatic management and correction of underlying abnormalities. Workup independently interpreted and significant for nonactionable hematologic labs. Lipase negative. negative. On reevaluation, patient resting comfortably, states she has not vomited since she got the Reglan and feels much better. Given patient presentation, workup, history, this most likely represents gastroparesis in the setting of GLP-1 agonist use. Because patient at baseline without signs or symptoms of clinical decompensation, deemed appropriate for discharge. Results were relayed to patient who voiced understanding and were agreeable to outpatient management and follow up. I discussed my clinical impression with patient and answered all questions. At this time, the evidence for any other entities in the differential is insufficient to warrant any further testing or ED observation. This was explained as well. Advisory was given that persistent or worsening symptoms require further evaluation. I confirmed the understanding of this discussion. [place] Technician disclaimer Much of this encounter note is an electronic sheet metal engineer spoken language to printed text. Electronic sheet metal engineer of the spoken language may permit errors. Although I have reviewed the note, some errors may still exist. Critical Care Critical Care Time Critical Care Time: No
[2024-07-17 19:37] LABS: Albumin Level 4.8 g/dl (3.5-5.0); Chloride 109 mmol/L (98-107); Potassium 3.6 mmoL/L (3.5-5.1); Sodium 137 mmol/L (136-145)
[2024-07-17 19:39] LABS: Alanine Aminotransferase 24 U/L (12-78); Aspartate Amino Transferase 32 U/L (14-36); Blood Urea Nitrogen 12 mg/dl (7-17); Creatinine Clearance Estimated 275 mL/min (50-200); Estimated Glomerular Filt Rate 142 ml/min (>60); GFR (African American) 172 ML/MIN (>60)
[2024-07-17 19:40] LABS: Albumin/Globulin Ratio 1.5 (1.1-1.8); Alkaline Phosphatase 90 U/L (38-126); Anion Gap 13.6 mEq/L (5-15); Bilirubin,Total 0.7 mg/dl (0.2-1.3); Calcium 9.6 mg/dl (8.4-10.2); Carbon Dioxide 18 mmol/L (22.0-30.0); Globulin 3.2 g/dL (1.3-3.2); Glucose 87 mg/dl (74-100); Lipase 202 U/L (23-300)
[2024-07-17 20:18] LABS: HCG,Quantitative < 2 mIU/ml (0-5.42)
[2024-07-17 20:28] LABS: Microscopic, Urine URINE MICROSCOPIC (MICROSCOPIC)
[2024-07-17 20:55] LABS: HIV Combo NEGATIVE (Negative)
[2024-07-17 21:03] LABS: Hepatitis C Ab Qual. W/ RFX NEGATIVE (Negative)
[2024-07-17 21:04] LABS: Appearance,Urine CLEAR (Clear); Blood, Urine Negative (Negative); Color,Urine YELLOW (Yellow); Glucose,Urine (UA) Negative (Negative); Ketones,Urine 3+ (Negative); Leukocyte Esterase,Urine Negative (Negative); Nitrate,Urine Negative (Negative); Protein,Urine 2+ (Negative); Urobilinogen,Urine 0.2 EU/dl (0.2)
[2024-07-17] MEDS: METOCLOPRAMIDE 10MG TABLET 10 MG PO (21:04)
[2024-07-17 21:10] LABS: Bilirubin,Urine Negative (Negative)
[2024-07-17 21:42] LABS: Bacteria,Urine 4+ /lpf; Mucus,Urine 2+ /lpf; RBC,Urine Occasional #/hpf (0-3)
== END 2024-07-17 21:06 | disposition home or self-care (01) ==
PROVIDERS: Emergency Provider Emergency Medicine
DX: R11.2 Nausea with vomiting, unspecified (principal); T50.995A Adverse effect of other drugs, medicaments and biological substances, initial encounter; R51.9 Headache, unspecified; Z11.59 Encounter for screening for other viral diseases; Z11.4 Encounter for screening for human immunodeficiency virus [HIV]
CPT/HCPCS: 80053; 81001; 83690; 84702; 85025; 86803; 87086; 87389; 93005; 96361; 96374; 96375; 99284; J1200; J2765; J7120

== ENCOUNTER 2024-07-19 12:34 | Emergency (ER) | payer MEDICAID, SELFPAY ==
--- NOTE | 2024-07-19 12:57 | ED_ITS ---
<Statement entered by Shona Mota DO - 07/19/24 15:02> I was consulted by the DENICE, and we discussed the complexity of the problems being addressed. I approved the treatment and management plan for this patient's care in the emergency department, thus performing a substantive portion of the medical decision making. It is felt patient symptoms are likely manifestation of her taking the Wegovy. Workup overall reassuring, abdominal exam benign with no tenderness. 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 Symptoms improved with Phenergan, patient tolerating oral intake, potassium repleted, patient deemed to be appropriate for discharge with strict return precautions and instructions to close follow-up Shona Mota DO Discharge Plan Disposition Patient Disposition: Home, Self-Care Condition: Good Prescriptions Prescriptions: New promethazine 12.5 mg suppository 12.5 mg WI Q6H PRN (Reason: nausea and vomiting) 3 Days Qty: 12 0RF No Action triamcinolone acetonide 0.1 % cream topical Patient Comments: WHEN FLARED, APPLY A THIN LAYER TO AFFECTED AREAS ON BODY TWICE DAILY FOR 2 WEEKS. THEN STOP FOR 1 WEEK. REPEAT NEEDED FOR FLARES methotrexate sodium 2.5 mg tablet 2.5 mg PO WEEKLY Patient Comments: TAKE 6 TABLETS BY MOUTH ONCE A WEEK folic acid 1 mg tablet PO Patient Comments: TAKE 1 TABLET BY MOUTH ONCE DAILY EXCEPT ON DAY YOU TAKE METHOTREXATE. clobetasol 0.05 % ointment topical Patient Comments: APPLY OINTMENT TOPICALLY TO AFFECTED AREA TWICE DAILY UP TO 14 DAYS WHEN FLARED, STOP FOR 7 DAYS, REPEAT NEEDED clobetasol 0.05 % solution topical Patient Comments: APPLY TO SCALP ONCE DAILY AT BEDTIME FOR 3 WEEKS.TAKE ONE WEEK BREAK AND REPEAT NEEDED FOR ITCHING ondansetron 4 mg tablet,disintegrating 4 mg PO Q6H PRN (Reason: nausea and vomiting) Qty: 10 0RF metoclopramide HCl [Reglan] 10 mg tablet 10 mg PO Q6H PRN (Reason: nausea and vomiting) Qty: 30 0RF methylprednisolone [Medrol (Tyson)] 4 mg tablets,dose pack See Rx Instructions .Route .COMPLEX 6 Days Qty: 21 0RF Rx Instructions: taper pack; Referrals Follow up/Referrals: Provider,Referral, MD [Primary Care Provider] - See instructions Activity Restrictions/Add. Instructions Additional Instructions/Restrictions: Monitor temperature. Seek treatment if fever develops. Increase fluids such as water, Gatorade, Powerade, juice No food is okay as long as you are drinking. Once ready to eat start bland such as bananas, rice, applesauce, toast. Follow-up immediately for new or worsening symptoms or no noticeable improvement over the next 48 hours. Clinical Impressions Clinical Impression: Drug-induced nausea and vomiting, Acute hypokalemia Instructions Patient Instructions: Nausea and Vomiting-Adult Print Language Print Language: [place]i Discharge ED Provider: Shona Mota General Adult HPI General Chief complaint: Nausea/Vomiting/Diarrhea Stated complaint: n/v Time Seen by Provider: 07/19/24 12:37 Mode of Arrival: EMS Source of Information: Patient History of Present Illness HPI narrative: 34-year-old female presents via EMS with complaints of vomiting and vertigo. Patient states on Wednesday she took what she thinks is 2.4 mg of Wegovy that she received from her friend. Patient states she felt she needed to lose some weight and was talking to a friend and the friend give her 2 Wegovy pens. Patient states she did not know how much to take so she believes she took 2.4 mg. Patient states since then she has been very nauseous unable to keep anything down. Patient states on Wednesday she had a vertigo episode where she passed out and she believes she hit her head. Patient states she was seen in the ER on Wednesday and was given IV fluids and 2 different types of nausea medicine. Patient states this a.m. around 5:00 she woke up nauseous and vomiting she took her nausea medicine but she is not sure if it stayed down because she was vomiting. Patient states today she continued with the vomiting and the vertigo and decided to call EMS. Related Data Home Medications ?Medication ?Instructions ?Recorded ?Confirmed triamcinolone acetonide 0.1 % applic topical 01/11/24 02/23/24 topical cream clobetasol 0.05 % scalp solution topical 02/23/24 02/23/24 clobetasol 0.05 % topical ointment topical 02/23/24 02/23/24 folic acid 1 mg tablet PO 02/23/24 02/23/24 methotrexate sodium 2.5 mg tablet 2.5 mg PO WEEKLY 02/23/24 02/23/24 Previous Rx's ?Medication ?Instructions ?Recorded methylprednisolone 4 mg tablets in See Rx Instructions .Route 03/09/24 a dose pack (Medrol (Tyson)) .COMPLEX 6 days #21 tabs metoclopramide HCl 10 mg tablet 10 mg PO Q6H PRN nausea and 07/17/24 (Reglan) vomiting #30 tabs ondansetron 4 mg disintegrating 4 mg PO Q6H PRN nausea and 07/17/24 tablet vomiting #10 tabs promethazine 12.5 mg rectal 12.5 mg WI Q6H PRN nausea and 07/19/24 suppository vomiting 3 days #12 ea Allergies Allergy/AdvReac Type Severity Reaction Status Date / Time peanut Allergy Verified 02/23/24 08:33 [facility] Disclaimer: The information contained in this section may have been updated after the patient was seen, as this information can be updated by other users. 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 (Reviewed 07/19/24 @ 13:09 by Ashu Quinteros ([facility]), [employer]) LGSIL on Pap smear of cervix Eczema Asthma Anemia Depression Anxiety Hypertension Surgical History (Reviewed 07/19/24 @ 13:09 by Ashu Quniteros ([facility]), [employer]) [place] teeth extracted History of cataract surgery Family History , [employer]) Cancer Mother Grandmother Social History , [employer]) Smoking Status: Never smoker alcohol intake: never current occupational status: employed Travel in the last 8 weeks?: None Have you lived/traveled outside [place] in past 30 days?: No Contact w/someone who lives/traveled outside US past 30 days?: No Exposure to someone with infectious disease in past 14 days?: No Do you have a fever (greater than 100.4 F or 38 C)?: No Have you tested positive for COVID-19?: No Exposed to someone with COVID-19 in past 14 days?: No Do you have a sore throat?: No Do you have a cough?: No Do you have any weakness?: No Do you have any diarrhea?: No Are you experiencing any unusual bleeding?: No Do you have any muscle aches/pain?: No Do you have any abdominal pain?: No Are you experiencing loss of taste or smell?: No Other 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 Have you received the Flu Vaccine for this season: No Have you received the Pneumonia Vaccine: No ROS Obtained: Yes Systems reviewed as appropriate & no additional complaints except as documented Physical Exam General General appearance: alert and in no apparent distress Respiratory Respiratory exam: Present normal lung sounds bilaterally Cardiovascular Cardiovascular exam: Present regular rate and normal rhythm Abdominal Exam Abdominal exam: Present soft and normal bowel sounds; Absent distention, tenderness or guarding Neurological Exam Neurological exam: Present alert, oriented X3 and CN II-XII intact Skin Skin exam: Present warm and intact Lymphatic Lymphatic Findings: no adenopathy Medical Decision Making Medical Records Medical records reviewed: Yes I reviewed the patient's medical records. Screening: Per USPSTF and CDC recommendations, given the prevalence of disease in our region, it is our hospital?s policy to screen for HIV and viral Hepatitis for all patients aged 18 and over and those with ongoing risk factors. Christopher Inquiry Pt receiving controlled substance: No Christopher was queried for this patient: No Vital Signs: 07/19/24 12:59 07/19/24 13:35 07/19/24 14:01 Temperature 97.8 F Temperature Source Oral Pulse Rate 69 65 Pulse Rate [Right Radial] 81 Respiratory Rate 16 Blood Pressure 120/86 134/66 Blood Pressure [Right Arm] 110/64 Blood Pressure Mean 88 Blood Pressure Mean [Right Arm] 79 Blood Pressure Source [Right Arm] Automatic Cuff Blood Pressure Position [Right Arm] Sitting 02 Sat by Pulse Oximetry 100 97 100 Oxygen Delivery Method Room Air Room Air Lab Data Lab results reviewed: Yes I reviewed the patient's lab results. Lab Results 07/19/24 12:50: WBC 11.9 H, RBC 4.87, Hgb 14.6, Hct 42.0, MCV 86.2, MCH 30.0, MCHC 34.8, RDW 13.6, Plt Count 352, MPV 9.3, Neut % (Auto) 71.5, Lymph % (Auto) 18.4, Wheeler % (Auto) 8.4, Eos % (Auto) 0.8, Baso % (Auto) 0.3, Neut # (Auto) 8.5 H, Lymph # (Auto) 2.2, Wheeler # (Auto) 1.0, Eos # (Auto) 0.1, Baso # (Auto) 0.0, Sodium 138, Potassium 3.4 L, Chloride 106, Carbon Dioxide 22, Anion Gap 13.4, BUN 14, Creatinine 0.60, Estimated Creat Clear 105, Estimated GFR 115, Est GFR ( Amer) 139, Glucose 85, Calcium 9.3, Magnesium 1.8, Total Bilirubin 1.1, AST 25, ALT 18, Alkaline Phosphatase 72, Total Protein 7.4, Albumin 4.7, Globulin 2.7, Albumin/Globulin Ratio 1.7, Serum HCG, Qual Negative 07/19/24 13:22: Urine Color Yellow, Urine Appearance Clear, Urine pH 7.0, Ur Specific [place] 1.015, Urine Protein 1+ A, Urine Glucose (UA) Negative, Urine Ketones 3+, Urine Blood Negative, Urine Nitrate Negative, Urine Bilirubin Negative, Urine Urobilinogen 0.2, Ur Leukocyte Esterase Trace, Urine RBC None, Urine WBC 5-10, Ur Squamous Epith Cells 20-50, Urine Bacteria Trace 07/19/24 12:50 07/19/24 12:50 Orders (Tests/Meds): ED MEDICATIONS Discontinued Medications Generic Name Dose Route Start Last Admin Trade Name Freq PRN Reason Stop Dose Admin Potassium Chloride/Water 100 mls @ 100 mls/hr 07/19/24 13:29 07/19/24 14:03 Potassium Chloride 10meq/100ml Ivpb IV 07/19/24 14:28 100 mls/hr ONCE ONE Administration Sodium Chloride 500 mls @ 999 mls/hr 07/19/24 14:03 07/19/24 14:05 Sod Chlor 0.9% 1000ml Bag IV 07/19/24 14:33 999 mls/hr .Q31M ONE Administration Promethazine HCl 12.5 mg 07/19/24 13:41 07/19/24 13:48 Promethazine Hcl 25mg/Ml 1ml Vial IV 07/19/24 13:42 12.5 mg ONCE ONE Administration Sodium Chloride 25 ml 07/19/24 13:41 07/19/24 13:48 Sodium Chloride 0.9% 25ml Bag IV 07/19/24 13:42 25 ml ONCE ONE Administration ORDERS Category Date Time Status CBC w/Auto Diff [Complete Blood Count Auto Diff] Stat Lab 07/19/24 12:50 Completed CMP [Comprehensive Metabolic Panel] Stat Lab 07/19/24 12:50 Completed MAG [Magnesium] Stat Lab 07/19/24 12:50 Completed Serum [HCG Qualitative, Serum] Stat Lab 07/19/24 12:50 Completed UA [Urinalysis and Microscopic] Stat Lab 07/19/24 13:22 Completed Medical Decision Narrative: In summary patient is a 34-year-old female who presents to the emergency department for evaluation of vomiting. Patient is hemodynamically stable upon arrival, afebrile. Unremarkable physical exam. Differential diagnosis includes side effect of medication, UTI, dehydration. Initial workup will be conducted with labs. Initial inventions include bolus, IV Phenergan, IV potassium. Initial workup reviewed by ak labs with potassium 3.4 and all other labs unremarkable. Upon repeat evaluation patient is resting comfortably in bed states her nausea is much better. Given this patient appropriate for discharge at this time for discharge home. Critical Care Critical Care Time Critical Care Time: No
[2024-07-19 12:59] VITALS: BP 110/64; PULSE 81; RESP 16; TEMP 36.6; O2SAT 100; BMI 42.0
[2024-07-19 13:04] LABS: Basophils % 0.3 % (0.1-2.0); Eosinophils # 0.1 Kmm3 (0.0-0.4); Eosinophils % 0.8 % (0.1-12.0); Hemoglobin 14.6 g/dL (12.2-16.2); Immature Granulocytes # 0.07 10^3uL; Immature Granulocytes % 0.6 %; Lymphocytes # 2.2 K/mm3 (0.7-4.5); Lymphocytes % 18.4 % (10-50); Mean Corpuscular HGB Conc 34.8 g/dL (31.8-35.4); Mean Corpuscular Volume 86.2 fl (81-99); Mean Platelet Volume 9.3 fl (7.4-10.4); Monocytes % 8.4 % (1.7-9.3); Neutrophils # 8.5 K/mm3 (1.8-7.8); Neutrophils % 71.5 % (37.0-80.0); Nucleated Red Blood Cells # 0 10^3/uL; Nucleated Red Blood Cells % 0 %; Platelet Count 352 K/mm3 (142-424); Red Blood Count 4.87 M/mm3 (4.20-5.40); Red Cell Distribution Width 13.6 % (11.5-17.5); Red Cell Distribution Width-SD 42.5 fL; White Blood Count 11.9 K/mm3 (4.8-10.8)
[2024-07-19 13:13] LABS: Chloride 106 mmol/L (98-107)
[2024-07-19 13:14] LABS: Albumin Level 4.7 g/dl (3.5-5.0); Potassium 3.4 mmoL/L (3.5-5.1); Sodium 138 mmol/L (136-145)
[2024-07-19 13:17] LABS: Alanine Aminotransferase 18 U/L (12-78); Albumin/Globulin Ratio 1.7 (1.1-1.8); Alkaline Phosphatase 72 U/L (38-126); Anion Gap 13.4 mEq/L (5-15); Aspartate Amino Transferase 25 U/L (14-36); Bilirubin,Total 1.1 mg/dl (0.2-1.3); Blood Urea Nitrogen 14 mg/dl (7-17); Calcium 9.3 mg/dl (8.4-10.2); Carbon Dioxide 22 mmol/L (22.0-30.0); Creatinine Clearance Estimated 105 mL/min (50-200); Estimated Glomerular Filt Rate 115 ml/min (>60); GFR (African American) 139 ML/MIN (>60); Globulin 2.7 g/dL (1.3-3.2); Glucose 85 mg/dl (74-100); Total Protein,Serum 7.4 g/dl (6.3-8.2)
[2024-07-19 13:18] LABS: Magnesium 1.8 mg/dl (1.6-2.3)
[2024-07-19 13:26] LABS: Microscopic, Urine URINE MICROSCOPIC (MICROSCOPIC)
[2024-07-19 13:29] LABS: Appearance,Urine CLEAR (Clear); Blood, Urine Negative (Negative); Color,Urine YELLOW (Yellow); Glucose,Urine (UA) Negative (Negative); Ketones,Urine 3+ (Negative); Leukocyte Esterase,Urine TRACE (Negative); Nitrate,Urine Negative (Negative); Protein,Urine 1+ (Negative); Specific Gravity, Urine 1.015 (1.005-1.030); Urobilinogen,Urine 0.2 EU/dl (0.2)
[2024-07-19 13:35] VITALS: BP 120/86; PULSE 69; O2SAT 97
[2024-07-19 13:38] LABS: Bilirubin,Urine Negative (Negative)
[2024-07-19 13:39] LABS: HCG Qualitative, Serum Negative (Negative)
[2024-07-19] MEDS: SODIUM CHLORIDE 0.9% 25ML BAG 25 ML IV (13:48)
[2024-07-19] MEDS: PROMETHAZINE HCL 25MG/ML 1ML VIAL 12.5 MG IV (13:48)
[2024-07-19 14:01] VITALS: BP 134/66; PULSE 65; O2SAT 100
[2024-07-19] MEDS: KCl 10mEq/100ml 100 ML 100 MEQ IV (14:03)
[2024-07-19] MEDS: 0.9 % SODIUM CHLORIDE 1000ML 500 ML 999 ML IV (14:05)
[2024-07-19 14:09] LABS: Bacteria,Urine Trace /lpf; Squamous Epithelial Cell,Urine 20-50 #/hpf (0-5)
[2024-07-19 14:56] VITALS: BP 107/83; PULSE 79; RESP 16; TEMP 36.6; O2SAT 96
--- NOTE | 2024-07-21 08:14 | PC.NURSE ---
I spoke with about the pts final urine culture results. no changes needed to treatment plan
== END 2024-07-19 15:06 | disposition home or self-care (01) ==
PROVIDERS: Nurse Practitioner Family; Emergency Provider Emergency Medicine
DX: R11.2 Nausea with vomiting, unspecified (principal); E87.6 Hypokalemia; T50.995A Adverse effect of other drugs, medicaments and biological substances, initial encounter
CPT/HCPCS: 80053; 81001; 83735; 84703; 85025; 96365; 96375; 99284; J2550; J3480; J7030

== ENCOUNTER 2024-10-25 19:44 | Emergency (ER) | payer MEDICAID, SELFPAY ==
--- OUTSIDE RECORDS SUMMARY | 2006-01-17 20:00 | XMS_ITS | Continuity of Care Document ---
Author Organization [facility] Address [address] [place] [address] Phone Care Team Providers Care Clinical Social Work Therapist Name Role Phone No Information Unavailable Unavailable Advance Directives Directive Yes / No Effective Date File Name No Information Encounters Encounter Description Practice Location Reason(s) For Visit Diagnoses Date Provider Providers Copied on Encounter [facility] , [address] [place], [address], [place] tel:[phone] DEONTE Knowles [place] No Information No Information Family History Family Member Type Diagnosis Age At Onset No Information Payers Payer name Insurance type Covered democrat ID Authoriza tion(s) No Information Social History Type Description Quantity Date Captured Comments Sex Female Smoking Status No Information Chief Complaint And Reason For Visit No Information Reason For Referral Reason For Referral No Information History Of Present Illness Encounter Date Complaint History Of Prese nt Illness No Information Functional Status Date Functional Assessmen t No Information Instructions Date Instruction Additional Infor mation No Information Assessments Type Assessment Date No Information Patient Care Teams Name Effective Dates (start - stop) Status Members No Information
--- OUTSIDE RECORDS SUMMARY | 2024-10-02 10:30 | XMS_ITS | Encounter Summary ---
Author Organization [place] [address] Care Team Providers Care Digital Project Coordinator Name Role Phone Abner Hall APRN Primary Care Provider Reason for Visit * Reason Comments Rash Eczema Encounter Details Date Type Department Care Team (Late st Contact Info) Description 10/02/2024 10:30 AM EDT Telemedicine [facility] Video Visits [address] [place] [address] Padmini Ryan APRN [address] [place] [address] Atopic dermatitis, unspecified type (Primary Dx) Social History Tobacco Use Types Packs/Day Years Used Date Smoking Tobacco: Former Cigarettes 0.5 4.5 0 03/15/2008 - 09/14/2012 Smokeless Tobacco: Never Alcohol Use Standard Drinks/Week Comments Not Currently 0 (1 standard drink = 0.6 oz pur e alcohol) rare Overall Financial Resource Strain (CARDIA) Answe r Date Recorded How hard is it for you to pa y for the very basics like food, housing, medical care, and heating? Not hard at all 08/06/2020 PHQ-2 Answer Date Recorded PHQ-2 Total Score 1 03/23/2022 [facility] - Occupational Stress Questionnaire Answer Date Recorded Do you feel stress - tense, restless, nervous, or anxious, or unable to sleep at night because your mind is troubled all the time - these days? Very much 08/06/2020 Exercise Vital Sign Answer Date Recorde d On average, how many days pe r week do you engage in moderate to strenuous exercise (like a brisk walk)? 7 days 08/06/2020 On average, how many minutes do you engage in exercise at this level? 40 min 08/06/2020 Hunger Vital Sign Answer Date Recorded Within the past 12 months, y ou worried that your food would run out before you got the money to buy more. Sometimes true Within the past 12 months, t he food you bought just didn't last and you didn't have money to get more. Sometimes true PRAPARE - Transportation Answer Date Re corded In the past 12 months, has l ack of transportation kept you from medical appointments or from getting medications? No 07/14 In the past 12 months, has l ack of transportation kept you from meetings, work, or from getting things needed for daily living? 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 Answer Date of Assessment Author No 03/10/2022 10:03 PM Laila Donohue RN * Is the person blind or does he/she have serious difficulty seeing even when wearing glasses? Answer Date of Assessment Author No 03/10/2022 10:03 PM Laila Donohue RN * Does this person have serious difficulty walking or climbing stairs? Answer Date of Assessment Author No 03/10/2022 10:03 PM Laila Donohue RN * Does this person have difficulty dressing or bathing? Answer Date of Assessment Author No 03/10/2022 10:03 PM Laila Donohue RN * Because of a physical, mental or emotional condition, does this person have difficulty doing errands alone such as visiting a doctor's office or shopping? Answer Date of Assessment Author No 03/10/2022 10:03 PM Laila Donohue RN documented as of this encounter Mental Status * Because of a physical, mental or emotional condition, does this person have serious difficulty concentrating, remembering or making decisions? Answer Entry Date Author No 03/10/2022 10:03 PM Laila Donohue RN documented in this encounter Patient Instructions * Attachments The following attachments cannot be sent through Care Everywhere. * Eczema (atopic dermatitis) (Lithuanian) documented in this encounter Ordered Prescriptions Prescription Sig Dispense Quantity Refills Last Filled Start Date End Date predniSONE (DELTASONE) 10 mg Oral TabletIndications: Atopic dermatitis, unspecified type Take 3 Tablets by mouth daily for 4 days, THEN 2 Tablets daily for 4 days, THEN 1 Tablet daily for 4 days, THEN 0.5 Tablets daily for 4 days. 26 Tablet 10/02/2024 documented in this encounter Progress Notes * Padmini Ryan, DIANN - 10/02/2024 10:30 AM EDT Lilia Rodriges is a 34 y.o. female Chief Complaint: Chief Complaint Patient presents with Rash Eczema This virtual health visit is being conducted using a Video Visit (live, interactive video and audio), in accordance with [facility] telehealth laws and policies, and in a private space with a secure platform. Patient has reviewed the terms and conditions of service as part of the registration for today's visit. HISTORY OF PRESENT ILLNESS - SUBJECTIVE Patient presents for video visit with c/o 4-5 day hx breakout of atopic eczema on bilateral palms of hands and around fingers, bottoms of feet, and on scalp. Red, raised bumps with blisters and cracks. Reports this rash is c/w prior eczema breakouts. Has seen a [facility] in the past, [place];has appointment for follow up. Very itchy, pain with cracking and blisters. Some watery drainage when blisters pop. States Medrol dose pack does not clear it up as rash returns immediately, just prednisone taper. Denies fever, sweats, chills, fatigue, shortness of breath. MEDICAL HISTORY Immunization History Administered Date(s) Administered DTaP 1991, 1991, 1991, 09/04/1992, 10/11/1996 HiB, Unspecified Formulation 1991, 1991, 1991, 09/04/1992 IPV 1991, 1991, 09/04/1992, 10/11/1996 MMR 09/04/1992, 10/11/1996 Td (Adult), Absorbed 12/07/2005 Tdap 02/05/2018 Health Maintenance Due Topic Date Due Annual Wellness Exam Never done Pneumococcal Vaccine 0-49 (1 of 2 - PCV) Never done Hepatitis B Vaccine (1 of 3 - 19+ 3-dose series) Never done COVID-19 Vaccine () Never done Current Outpatient Medications on File Prior to Visit Medication Sig Dispense Refill albuterol (ACCUNEB) 1.25 mg/3 mL Inhl Solution for Nebulization Inhale 3 mL into the lungs every 6 hours as needed for Wheezing or Shortness of Breath. 30 Each 0 albuterol (PROVENTIL HFA;VENTOLIN HFA) 90 mcg/actuation Inhl HFA Aerosol Inhaler Inhale 2 Puffs into the lungs every 4 hours as needed for Wheezing. 1 Each 5 albuterol-ipratropium (DUO-NEB) 3 mg-0.5 mg(2.5 mg base)/3 mL Inhl Solution for Nebulization Take 3mL by nebulization every 6 hours as needed for Shortness of Breath. 60 Each 5 fluticasone propion-salmeteroL (ADVAIR DISKUS) 100-50 mcg/dose Inhl Disk with Device Inhale 1 Puff into the lungs 2 times daily. Plan will only pay for brand name 1 Each 1 folic acid (FOLVITE) 1 mg Oral Tablet Take 1 Tablet by mouth daily. 30 Tablet 0 ketoconazole (NIZORAL) 2 % Top Shampoo Apply topically Three times weekly. 120 mL 0 norgestimate-ethinyl estradioL (ORTHO-CYCLEN) 0.25-35 mg-mcg Oral Tablet Take 1 Tablet by mouth daily. (Patient not taking: Reported on 04/30/2024) 28 Tablet 6 ondansetron (ZOFRAN-ODT) 4 mg Oral Tablet, Rapid Dissolve Dissolve 1 Tablet by mouth every 6 hours as needed for Nausea. 30 Tablet 1 No current facility-administered medications on file prior to visit. REVIEW OF SYSTEMS Review of Systems Constitutional: Negative for chills, diaphoresis, fever and malaise/fatigue. Respiratory: Negative for shortness of breath and wheezing. Cardiovascular: Negative for chest pain. Skin: Positive for itching and rash. PHYSICAL EXAM - OBJECTIVE Physical Exam Constitutional: General: She is not in acute distress. Appearance: Normal appearance. She is not ill-appearing, toxic-appearing or diaphoretic. Pulmonary: Effort: Pulmonary effort is normal. No respiratory distress. Skin: Comments: Multiple papules and vesicles on palms of bilateral hands with scabs and cracking, redness, unable to visualize bottoms of feet during video visit. Examination limited by video visit. Neurological: General: No focal deficit present. Mental Status: She is alert and oriented to person, place, and time. Psychiatric: Mood and Affect: Mood normal. Behavior: Behavior normal. Thought Content: Thought content normal. Judgment: Judgment normal. Patient appears stable and in no apparent distress during video visit. Examination limited by videovisit. LABS The following LABS were reviewed: Lab Results Component Value Date WBC 12.1 (H) 03/25/2022 HGB 10.6 (L) 03/25/2022 HCT 32.1 (L) 03/25/2022 PLT 195 03/25/2022 CHOLESTEROL 221 (H) 12/25/2016 LDLCALC 131 (H) 12/25/2016 HDL 54 12/25/2016 TRIG 181 (H) 12/25/2016 ALT 15 03/23/2022 AST 24 03/23/2022 NA 138 03/23/2022 K 4.4 03/23/2022 CL 104 03/23/2022 CREATININE 0.58 03/23/2022 BUN 8 03/23/2022 CO2 22 03/23/2022 TSH 4.080 12/25/2016 INR 0.86 03/23/2022 GLU 83 03/23/2022 URICACID 3.8 03/23/2022 GFRAFRAM 129 08/03/2020 GFRNONAFRAM 112 08/03/2020 CrCl cannot be calculated (Patient's most recent lab result is older than the maximum 7 days allowed.). No results found for: MICROALBUR , URINEMICROAL , [id number] UMAB/Cre ratio: No results found for: LABMICR , MICROALBCR ASSESSMENT AND PLAN Diagnoses and all orders for this visit: Atopic dermatitis, unspecified type - predniSONE (DELTASONE) 10 mg Oral Tablet; Take 3 Tablets by mouth daily for 4 days, THEN 2 Tablets daily for 4 days, THEN 1 Tablet daily for 4 days, THEN 0.5 Tablets daily for 4 days. Dispense: 26 Tablet; Refill: 0 Discussion: Discussed self management and treatment plan. Will start steroid taper as she states she has rebound rash with medrol dose pack. Discussed risks of chronic steroid usage, patient verbalized understanding and requested steroid taper as she is very uncomfortable and states this is the only thing that helps. Keep clean and moisturized. Instructed pateint to call [facility] and make them aware of exacerbation of symptoms and repeated steroid usage; may need change in maintenance medication and refill of ointment, hopefully an earlier appointment as she is having severe symptoms. Recommend trial of OTC antihistamine such as Zyrtec daily. Instructed patient to follow up with PCP or urgent care with s/s skin infection for in person exam. Instructed to notify PCP/seek emergency care if new symptoms occur or if current symptoms worsen or don't improve and/or with any questions or concerns. Pt voiced understanding. The patient has requested evaluation by telemedicine. Patient verbally expressed understanding of the risks/limitations associated with the use of telemedicine, including equipment failure, poor audio/image resolution, information clerk issues, the fact that patient will not be physically examined and may need to come to clinic to complete the assessment. Patient has reviewed the terms and conditions of service as part of the registration for today's visit. A video visit does not replace a [id number] exam and further services may be necessary. We are conducting her video visit in a private space and this video visit is being conducted in accordance with state telehealth/video visit regulations. Educated patient and/or family members regarding the care plan and instructions listed on the AfterVisit Summary [AVS] for today's visit. The patient and/or family members verbalized full understanding of the care plan and instructions given on the AVS for today's visit. A new medicine was prescribed during this office visit. I did discuss with the patient the reason for prescribing this new medication. I also did inform the patient of possible likely side effects, but also encouraged the patient to read the medication insert that will accompany their prescription and encouraged them to discuss any questions about the insert with their pharmacist. The patient wasinstructed to call if having side effects or possible allergic reaction after taking. I also discussed with the risk of stopping the medication or deviating from prescribing instructions. Dosing instructions are present on the AVS and the patient is aware. I inquired both patient and/or family of any questions and answered accordingly. Please notify PCP/seek emergency care if new symptoms occur or if current symptoms worsen or don't improve and/or with any questions or concerns. Padmini Ryan APRN Return if symptoms worsen or fail to improve, for with [facility] at scheduled visit. documented in this encounter Miscellaneous Notes * Patient Instructions - Padmini Ryan APRN - 10/02/2024 10:30 AM EDT Please notify PCP/seek emergency care if new symptoms occur or if current symptoms worsen or don't improve and/or with any questions or concerns. documented in this encounter Plan of Treatment Not on file documented as of this encounter Goals Goal Patient Goal Type Associated Problems Recent Progress Patient-Stated? Author Blood Pressure < 140/90 Blood Pressure 149/84(2024 9:38 AM EDT) No Marlene Chapman RMA Eat better, exercise, reach an ideal body weight General No Marlene Chapman RMA Stay Tobacco Free Lifestyle No Marlene Chapman RMA documented as of this encounter Visit Diagnoses Diagnosis Atopic dermatitis, unspecified type- Primary documented in this encounter Additional Health Concerns Assessment Noted Time PHQ-9 Depression Total Score: 1 03/23/19 23 8:53 PM EST PHQ-2 Depression Total Score: 1 03/23/19 23 8:53 PM EST documented as of this encounter Care Teams Digital Project Coordinator Relationship Specialty Start Date End Date Abner Hall, DIANN [address] [phone] PCP - General Nurse Practitioner 12/30/15 documented as of this encounter
--- OUTSIDE RECORDS SUMMARY | 2024-10-25 19:50 | XMS_ITS | Clinical Summary ---
Author Organization [facility] are Address [address] [place] [phone] Phone Care Team Providers Care Associate Faculty Name Role Phone Unavailable Unavailable Conditions or Problems No information available. Medications No information available. Medications Administered No information available. Allergies, Adverse Reactions, Alerts No information available. Results No information available. Plan of Care No information available. Procedures No information available. Vital Signs No information available. Immunizations No information available. Advance Directives No information available.
--- OUTSIDE RECORDS SUMMARY | 2024-10-25 19:51 | XMS_ITS | Encounter Summary ---
Author Organization [facility] [place] [address] Care Team Providers Care Sewing Demonstrator Name Role Phone Abner Hall APRN Primary Care Provider [phone] Encounter Details Date Type Department Care Team (Latest Contact Info) Description 10/02/2024 Travel Social History Tobacco Use Types Packs/Day Years [...] Date Recorded PHQ-2 Total Score 1 03/23/2022 [facility] - Occupational Stress Questionnaire Answer Date Recorded [...] of Assessment Author No 03/10/2022 10:03 PM Laial Donohue RN * Is the person blind [...] Laila Donohue RN documented in this encounter Plan of Treatment Not on file documented as of this encounter Goals Goal Patient Goal Type Associated Problems Recent Progress Patient-Stated? Author Blood Pressure < 140/90 Blood Pressure 149/84(2024 9:38 AM EDT) No Marlene Chapman RMA Eat better, exercise, reach an ideal body weight General No Marlene Chapman RMTuyet Stay Tobacco Free Lifestyle No Marlene Chapman RMA documented as of this encounter Visit Diagnoses Not on filedocumented in this encounter Additional Health Concerns Assessment Noted Time PHQ-9 Depression Total Score: 1 03/23/19 23 8:53 PM EST PHQ-2 Depression Total Score: 1 03/23/19 23 8:53 PM EST documented as of this encounter Care Teams Sewing Demonstrator Relationship Specialty Start Date End Date Abner Hall APRN [address] [phone] PCP - General Nurse Practitioner 12/30/15 documented as of this encounter
--- OUTSIDE RECORDS SUMMARY | 2024-10-25 19:51 | XMS_ITS | Clinical Summary ---
Author Organization [facility] Address [address] [place] [address] Phone Care Team Providers Care Die Sinking Machine Operator Name Role Phone Abner Hall APRN Primary Care Provider Allergies Active Allergy Reactions Criticality Noted Date Comments Latex, Natural Rubber Other (See Comments) 02/09/2010 Peanut Anaphylaxis High 02/09/2010 Not raw nuts, but peanut butter ok. Medications norgestimate-eth inyl estradioL (ORTHO-CYCLEN) 0.25-35 mg-mcg Oral Tablet Take 1 Tablet by mouth daily. 28 Tablet 6 10/25/19 24 Active Additional Information Patient not taking.Reason: Pt electing to not take the medication, Informant: Self/Patient, Reported on 05/21/2024 fluticasone propion-salmeter oL (ADVAIR DISKUS) 100-50 mcg/dose Inhl Disk with DeviceIndication s:History of asthma,Medicatio n refill Inhale 1 Puff into the lungs 2 times daily. Plan will only pay for brand name 1 Each 1 01/12/20 24 Active albuterol (ACCUNEB) 1.25 mg/3 mL Inhl Solution for Nebulization Inhale 3 mL into the lungs every 6 hours as needed for Wheezing or Shortness of Breath. 30 Each 01/12/20 24 Active folic acid (FOLVITE) 1 mg Oral TabletIndication s:Psoriasis vulgaris Take 1 Tablet by mouth daily. 30 Tablet 05/04/19 25 Active ketoconazole (NIZORAL) 2 % Top ShampooIndicatio ns:Atopic dermatitis, unspecified type Apply topically Three times weekly. 120 mL 07/14/19 25 Active ondansetron (ZOFRAN-ODT) 4 mg Oral Tablet, Rapid Dissolve Dissolve 1 Tablet by mouth every 6 hours as needed for Nausea. 30 Tablet 1 07/27/19 25 Active albuterol (PROVENTIL HFA;VENTOLIN HFA) 90 mcg/actuation Inhl HFA Aerosol InhalerIndicatio ns:Moderate persistent asthma with exacerbation,Oth er eczema Inhale 2 Puffs into the lungs every 4 hours as needed for Wheezing. 1 Each 5 08/09/19 25 Active albuterol-ipratr opium (DUO-NEB) 3 mg-0.5 mg(2.5 mg base)/3 mL Inhl Solution for NebulizationIndi cations:Moderate persistent asthmatic bronchitis with acute exacerbation Take 3 mL by nebulization every 6 hours as needed for Shortness of Breath. 60 Each 5 09/12/19 25 Active predniSONE (DELTASONE) 10 mg Oral TabletIndication s:Atopic dermatitis, unspecified type Take 3 Tablets by mouth daily for 4 days, THEN 2 Tablets daily for 4 days, THEN 1 Tablet daily for 4 days, THEN 0.5 Tablets daily for 4 days. 26 Tablet 10/03/19 25 025 Active Problems Patient Care Coordination No te Formatting of this note migh t be different from the original. Utilization audit completed by Gauri Arriaza RN on 07/06/2022. Problem Noted Date Diagnosed Date Normal labor and delivery 03/23/2022 Group B Streptococcus citlalli r, +RV culture, currently 03/02/2022 Encounter for supervision of normal in third trimester 12/04/2021 Positive urine drug screen 08/05/2017 Moderate persistent asthma with exacerbation Assessment & Plan (04/25/2021 5:16 PM EST): MDM: Chronic illness with exacerbation, progression, or side effects and Prescription Drug Management Acute asthma exacerbation likely triggered by environmental allergen. Already on LABA ICS and using Melinda every 5-6 h. Will send in steroid taper, though advised patient to use albuterol every 4 hours as needed. If patient is short of breath at rest despite using albuterol every 4 hours and prednisone taper, patient advised to seek further care. Morbid obesity due to excess calories 04/15/2015 Mild intermittent asthma without complication Hx MRSA infection 04/18/2010 Overview (04/18/2010): Spent a week and a half in hospital Jan-Feb 2010. Had surgical drainage of abscess on her back, Dr. Maher Anxiety 04/18/2010 Depression 02/10/2010 AR (allergic rhinitis) 02/10/2010 Eczema 07/12/2009 Overview (02/10/2010): Severe [facility] Resolved Problems Problem Noted Date Diagnosed Date Resolved Date Vaginal delivery 02/24/2018 05/26/2018 Positive GBS test 02/10/2018 05/26/2018 High risk , antepartum 08/16/2017 05/26/2018 Overview (08/16/2017): L=9 PNL wnl Genetic screening ordered Chronic hypertension during 08/16/2017 05/26/2018 Overview (02/02/2018): Previously on lisinopril; labetalol 100 BID (started 09/14) Baseline labs, 24 hour urine 230mg Growth U/S: 28 week 32 week 36 week testing at 32 weeks Dysmenorrhea 12/09/2015 08/16/2017 Pneumonia of right middle lo be due to infectious organism 04/14/2015 09/19/2017 Cellulitis and abscess 02/10/201004/14 Asthma with acute exacerbation 07/12/2009 04/14/2015 Encounters Date Type Department Care Team Description 10/02/2024 10:30 AM EDT Telemedicine [facility] [address] [place] [address] Padmini Ryan APRN Atopic dermatitis, unspecified type (Primary Dx) 10/02/2024 Travel 09/11/2024 Refill [facility] [address] [place] [address] Abner Hall APRN Medication Refill 08/22/2024 9:35 AM EDT - 08/22/2024 10:42 AM EDT Emergency [address] [address] Tr Xavier MD Atopic dermatitis, unspecified type (Primary Dx) Discharge Disposition: Home or Self Care 08/22/2024 Travel 08/08/2024 12:50 PM EDT Telemedicine [facility] [address] [place] [id number] Annabella Sharp APRN Atopic dermatitis, unspecified type (Primary Dx); Exacerbation of eczema; Moderate persistent asthma with exacerbation; Acute bacterial sinusitis; Other eczema 08/08/2024 Travel 08/04/2024 12:30 PM EDT Telemedicine [address] [address] Kira Crenshaw PA-C Atopic dermatitis, unspecified type (Primary Dx) 08/04/2024 Travel 07/26/[address] [address] Carisa Long MD Medication Refill from Last 3 Months Immunizations Immunization Administration Dates Next Due DTaP 10/11/1996, 3,1991,1991, HiB, Unspecified Formulation 09/04/1992,12/19/18 92,1991,1991 IPV 10/11/1996,09/04/1992,1991 ,1991 MMR 10/11/1996,09/04/1992 Td (Adult), Absorbed 12/07/2005 Tdap 02/05/2018 Surgical History Surgery Date Site/Laterality Comments EYE SURGERY cataracts removed DENTAL SURGERY 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 Date Comments Eczema Seasonal allergies Asthma Depression Heartburn MRSA (methicillin resistant staph aureus) culture positive COPD (chronic obstructive pulmonary disease) (HC C) Unspecified sleep apnea No CPAP, no sleep study Arthritis Syncope 04/14/2015 Family History 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 Relation Name Comments Eczema Father Breast Cancer Maternal Grandmother Depression Mother Eczema Mother Heart Defect Mother mitral stenosis Hypertension Mother Relation Name Status Comments Father Maternal Grandmother Mother Social History Tobacco Use Types Packs/Day Years Used Date Smoking Tobacco: Former Cigarettes 0.5 4.5 0 03/15/2008 - 09/14/2012 Smokeless Tobacco: Never Tobacco Cessation:Counseling Given: Not Answered Alcohol Use Standard Drinks/Week Comments Not Currently 0 (1 standard drink = 0.6 oz pur e alcohol) rare Overall Financial Resource Strain (CARDIA) Answe r Date Recorded How hard is it for you to pa y for the very basics like food, housing, medical care, and heating? Not hard at all 08/06/2020 PHQ-2 Answer Date Recorded PHQ-2 Total Score 1 03/23/2022 [facility] - Occupational Stress [...] file Not on file Not on file Obstetrics History Para Term AB IAB SAB Ectopic Multiple Livin g Live Births 2 2 2 0 2 2 Date Outcome GA Total Labor Labor/2nd/3rd Weight Sex Type Anes PTL Shirley A1 A5 Name Clin 2017 Term 38w 2d 0h 03m 0h 03m 5 lb 5.4 oz (2.42 kg) F Vag-S pont Epidur al N Livin g 9 9 ALFREDO MORRISON, PEPPER WU BABY Zuleika torres, Shana Melissa DO Complications:Chronic hypert ension during Delivery Location:[facility] ([facility]) 2022 Term 39w 2d 5h 31m 5h 17m/0h 08m/0h 06m 6 lb 12.3 oz (3.07 kg) F Vag-S pont Epidur al N Livin g 8 9 ALFREDO MORRISON, PEPPER WU GIRL Fredi valderrama, Nickolas huggins MD Delivery Location:[facility] Last Filed Vital Signs Vital Sign Reading Time Taken Comments Blood Pressure 149/84 08/22/2024 9:38 AM EDT Pulse 85 08/22/2024 9:19 AM EDT Temperature 36.7 C (98 F) 08/22/2024 9:38 AM EDT Respiratory Rate 16 08/22/2024 9:19 AM EDT Oxygen Saturation 98% 08/22/2024 9:19 AM EDT Inhaled Oxygen Concentration - - Weight 103.1 kg (227 lb 3.2 oz) 05/21/2024 5:45 PM EDT Height 157.5 cm (5' 2 ) 05/21/2024 5:45 PM EDT Body Mass Index 41.56 05/21/2024 5:45 PM EDT Plan of Treatment Health Maintenance Due Date Last Done Comments Annual Wellness Exam 05/29/1994 Hepatitis B Vaccine (1 of 3 - 19+ 3-dose series) 05/29/2010 Pneumococcal Vaccine 0-49 (1 of 2 - PCV) 05/29/2010 COVID-19 Vaccine ( - 2023- season) 2023 Pap Smear 09/18/2024 09/18/2021, 11/14, 04/06/2014 Influenza Vaccine (#1) 2024 7 (Declined), 11/21/2015 (Declined), 04/18/2015 (Declined), Additional history exists Cervical Cancer Screening 09/18/2026 HPV/Pap Cotest 09/18/2026 09/18/2021 DTaP/TDaP/Td (7 - Td or Tdap) 02/06/2028 02/05/2018, 12/07/2005, 10/11/1996, Additional history exists Meningococcal B Vaccine Aged Out No l onger eligible based on patient's age to complete this topic Goals Goal Patient Goal Type Associated Problems Recent Progress Patient-Stated? Author Blood Pressure < 140/90 Blood Pressure 149/84(2024 9:38 AM EDT) No Marlene Chapman RMA Eat better, exercise, reach an ideal body weight General No Marlene Chapman RMA Stay Tobacco Free Lifestyle No Marlene Chapman RMA Procedures Procedure Name Priority Date/Time Associated Diagnosis Comments GLUCOSE METER POC Routine 08/22/2024 10: 17 AM EDT [facility] CYTOLOGY REQUEST (PAP ONLY) Routine 09/18/2021 2:43 PM EDT Well woman exam with routine gynecological exam from Last 3 Months or Most Recently Relevant to Health Maintenance Results * GLUCOSE METER POC (08/22/2024 10:17 AM EDT) Glucose Meter POC 99 70 - 100 mg/dL 08/22/2024 10:18 AM EDT [facility] Sample Type Capillary 08/22/2024 10:18 AM EDT [facility] Patient Status Non-Critical Patient 08/22/2024 10:18 AM EDT [facility] Blood BLOOD SPECIMEN / Unknown 08/22/2024 10:17 AM EDT 08/22/2024 10:18 AM EDT Tr Xavier MD POINT OF CARE TEST ORDERABLES Fi nal Result [facility] [address] [place] [address] [place] [address] * PUBLIC ADDRESS SERVICER CYTOLOGY REQUEST (PAP ONLY) (09/18/2021 2:43 PM EDT) CASE REPORT Gynecologic Cytology Report Case: [id number] Authorizing Provider: Carisa Long Collected: 09/18/2021 1443 MD Kelly Ordering Location: [facility] Received: 09/18/2021 1443 First Screen: Pascale Richards CT Specimen: LIQUID-BASED PAP - CERVICAL/ENDOCERV ICAL, Cervix, Endocervical 09/24/2021 1:24 PM EDT [facility] PAP FINAL DIAGNOSIS Negative for intraepithelial lesion or malignancy 09/24/2021 1:24 PM EDT [facility] at 1324 EDT MICROSCOPIC DESCRIPTION Microscopic examination is performed and the findings corroborate the diagnosis. 09/24/2021 1:24 PM EDT [facility] PAP SMEAR ADEQUACY Satisfactory for evaluation 09/24/2021 1:24 PM EDT [facility] PAP ORGANISMS NOTED Abundant bacteria present. 09/24/2021 1:24 PM EDT [facility] ENDOCERVICAL T-ZONE Transformation zone present 09/24/2021 1:24 PM EDT [facility] EMBEDDED IMAGES 1:24 PM EDT [facility] PAP DISCLAIMER The Pap Smear is a screening test that aids in the detection of cervical cancer and cancer precursors. Both false positive and false negative results can occur. The test should be used at regular intervals, and positive results should be confirmed before definitive therapy. Processed using the ThinPrep It Network Administrator Automated cytology screening device (HitFix). 09/24/2021 1:24 PM EDT [facility] Thin Prep ENDOCERVICAL STRUCTURE / Unknown 09/18/2021 2:43 PM EDT 09/18/2021 2:43 PM EDT us Carisa Long MD CYTOLOGY ORDERABL [place] [address] from Last 3 Months or Most Recently Relevant to Health Maintenance Insurance [employer] [facility] [address] [facility] [address] Advance Directives For more information, please contact: [phone] * Full Code (Latest Code Status on File) Date Activated Date Inactivated Comments 03/23/2022 7:46 PM 03/24/2022 11:41 PM * Full Code Date Activated Date Inactivated Comments 02/26/2018 8:56 AM 02/26/2018 7:30 PM * Full Code Date Activated Date Inactivated Comments 02/22/2018 9:50 PM 02/24/2018 9:37 PM * Full Code Date Activated Date Inactivated Comments 04/11/2017 10:42 PM 04/15/2017 10:40 PM Care Teams Die Sinking Machine Operator Relationship Specialty Start Date End Date Abner Hall APRN [address] [place] [address] PCP - General Nurse Practitioner 12/30/15
--- OUTSIDE RECORDS SUMMARY | 2024-10-25 19:51 | XMS_ITS | Encounter Summary ---
Author Organization [place] [address] Care Team Providers Care Machine Printer Name Role Phone Abner Hall APRN Primary Care Provider [phone] Reason for Visit * Reason Onset Date Comments Medication Refill 09/11/2024 Encounter Details Date Type Department Care Team (Late st Contact Info) Description 09/11/2024 Refill [facility] [address] [place] [address] Abner Hall APRN [address] [place] [address] Medication Refill Social History Tobacco Use Types Packs/Day Years [...] Date Recorded PHQ-2 Total Score 1 03/23/2022 [facility] - Occupational Stress Questionnaire Answer Date Recorded [...] Laila Donohue RN documented in this encounter Ordered Prescriptions Prescription Sig Dispense Quantity Refills Last Filled Start Date End Date albuterol-ipratro pium (DUO-NEB) 3 mg-0.5 mg(2.5 mg base)/3 mL Inhl Solution for NebulizationIndic ations:Moderate persistent asthmatic bronchitis with acute exacerbation Take 3 mL by nebulization every 6 hours as needed for Shortness of Breath. 60 Each 5 09/11/2024 documented in this encounter Plan of Treatment Not on file documented as of this encounter Goals Goal Patient Goal Type Associated Problems Recent Progress Patient-Stated? Author Blood Pressure < 140/90 Blood Pressure 149/84(2024 9:38 AM EDT) No Marlene Chapman RMA Eat better, exercise, reach an ideal body weight General No Marlene Chapman RMA Stay Tobacco Free Lifestyle Marlene Ott RMA documented as of this encounter Visit Diagnoses Diagnosis Moderate persistent asthmatic bronchitis with acute exacerbation documented in this encounter Discontinued Medications Medication Sig Discontinue Reason Start Date End Da te albuterol-ipratropium (DUO-NEB) 0.5 mg-3 mg(2.5 mg base)/3 mL Inhl Solution for NebulizationIndication s:Moderate persistent asthmatic bronchitis with acute exacerbation Take 3 mL by nebulization every 6 hours as needed for Shortness of Breath. Reorder 01/18/2024 09/11/2024 documented as of this encounter Additional Health Concerns Assessment Noted Time PHQ-9 Depression Total Score: 1 03/23/19 23 8:53 PM EST PHQ-2 Depression Total Score: 1 03/23/19 23 8:53 PM EST documented as of this encounter Care Teams Machine Printer Relationship Specialty Start Date End Date Abner Hall APRN [address] [place] [address] PCP - General Nurse Practitioner 12/30/15 documented as of this encounter
[2024-10-25 19:54] VITALS: BP 128/78; PULSE 90; RESP 16; TEMP 36.8; O2SAT 97; BMI 42.5
--- NOTE | 2024-10-25 20:03 | ED_ITS ---
Discharge Plan Disposition Patient Disposition: Home, Self-Care Prescriptions Prescriptions: New prednisone 10 mg tablet 10 mg PO DIRECTED Qty: 21 0RF Rx Instructions: see taper instructions Take 4 tablets daily for 3 days, then take 2 tablets daily for 3 days, then take 1 tablet daily for 3 days, then stop triamcinolone acetonide 0.1 % ointment 1 applic topical DAILY Qty: 453.6 0RF No Action triamcinolone acetonide 0.1 % cream topical Patient Comments: WHEN FLARED, APPLY A THIN LAYER TO AFFECTED AREAS ON BODY TWICE DAILY FOR 2 WEEKS. THEN STOP FOR 1 WEEK. REPEAT NEEDED FOR FLARES methotrexate sodium 2.5 mg tablet 2.5 mg PO WEEKLY Patient Comments: TAKE 6 TABLETS BY MOUTH ONCE A WEEK folic acid 1 mg tablet PO Patient Comments: TAKE 1 TABLET BY MOUTH ONCE DAILY EXCEPT ON DAY YOU TAKE METHOTREXATE. clobetasol 0.05 % ointment topical Patient Comments: APPLY OINTMENT TOPICALLY TO AFFECTED AREA TWICE DAILY UP TO 14 DAYS WHEN FLARED, STOP FOR 7 DAYS, REPEAT NEEDED clobetasol 0.05 % solution topical Patient Comments: APPLY TO SCALP ONCE DAILY AT BEDTIME FOR 3 WEEKS.TAKE ONE WEEK BREAK AND REPEAT NEEDED FOR ITCHING ondansetron 4 mg tablet,disintegrating 4 mg PO Q6H PRN (Reason: nausea and vomiting) Qty: 10 0RF metoclopramide HCl [Reglan] 10 mg tablet 10 mg PO Q6H PRN (Reason: nausea and vomiting) Qty: 30 0RF methylprednisolone [Medrol (Tyson)] 4 mg tablets,dose pack See Rx Instructions .Route .COMPLEX 6 Days Qty: 21 0RF Rx Instructions: taper pack; promethazine 12.5 mg suppository 12.5 mg MA Q6H PRN (Reason: nausea and vomiting) 3 Days Qty: 12 0RF Referrals Follow up/Referrals: Provider,Referral, MD [Primary Care Provider, Medical] - See instructions Activity Restrictions/Add. Instructions Additional Instructions/Restrictions: You are being sent with a steroid taper. Take this as prescribed. You are also being prescribed triamcinolone cream. Use this as directed. I do encourage you to follow with your primary care physician this week or early next week as well as your rag cutting machine operator as soon as possible. Clinical Impressions Clinical Impression: Atopic dermatitis Instructions Patient Instructions: DI for Skin Abscess Print Language Print Language: Moldovan Discharge ED Provider: Cristo Garza General Adult HPI General Chief complaint: Skin/Abscess/Foreign Body Stated complaint: skin disorder on hands and feet , painful Time Seen by Provider: 10/25/24 19:49 Mode of Arrival: Ambulatory Source of Information: Patient Description of Symptoms (Recalled from ER Triage Doc. by RN): Pt presents to ED for an exzema flare up. Pt states this has been going on for about 4 days. Pt is unable to get into the rag cutting machine operator until the end of the month and the pain has become unbearable. Pt states the exzema is present on her feet and hands.Pt rates pain 6/10 at this time. Pt is A&O*4. History of Present Illness HPI narrative: Lilia Rodriges is a 34-year-old female with a past medical history of atopic dermatitis followed by dermatology and Claire who presents to the emergency department for complaints of worsening of her atopic dermatitis to her hands. She states that she is new to the area and missed her last appointment with her rag cutting machine operator due to her daughter having an appointment at the same time. She states that they were not able to get her in for another 2 to 3 weeks. She states that she ran out of her triamcinolone cream last night and has had worsening pain in both of her hands since then consistent with her atopic dermatitis. Patient has no other complaints or concerns at this time. Related Data Home Medications ?Medication ?Instructions ?Recorded ?Confirmed triamcinolone acetonide 0.1 % applic topical 01/11/24 02/23/24 topical cream clobetasol 0.05 % scalp solution topical 02/23/2402/12 clobetasol 0.05 % topical ointment topical 02/23/24 folic acid 1 mg tablet PO 02/23/24 02/23/24 methotrexate sodium 2.5 mg tablet 2.5 mg PO WEEKLY 02/0502/23/24 Previous Rx's ?Medication ?Instructions ?Recorded methylprednisolone 4 mg tablets in See Rx Instructions .Route 03/09/24 a dose pack (Medrol (Tyson)) .COMPLEX 6 days #21 tabs metoclopramide HCl 10 mg tablet 10 mg PO Q6H PRN nause a and 07/17/24 (Reglan) vomiting #30 tabs ondansetron 4 mg disintegrating 4 mg PO Q6H PRN nausea and 07/17/24 tablet vomiting #10 tabs promethazine 12.5 mg rectal 12.5 mg MA Q6H PRN nausea and 07/19/24 suppository vomiting 3 days #12 ea prednisone 10 mg tablet 10 mg PO DIRECTED #21 tab s 10/25/24 triamcinolone acetonide 0.1 % 1 applic topical DAILY # 453.6 grams 10/25/24 topical ointment Allergies Allergy/AdvReac Type Severity Reaction Status Date / Time peanut Allergy Verified 02/23/24 08:33 [facility] Disclaimer: The information contained in this section may have been updated after the patient was seen, as this information can be updated by other users. 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 , VICE PRESIDENT) LGSIL on Pap smear of cervix Eczema Asthma Anemia Depression Anxiety Hypertension Surgical History , VICE PRESIDENT) [place] teeth extracted History of cataract surgery Family History , VICE PRESIDENT) Cancer Mother Grandmother Social History , VICE PRESIDENT) Smoking Status: Unknown if ever smoked alcohol intake: never current occupational status: employed Travel in the last 8 weeks?: None Have you lived/traveled outside [place] in past 30 days?: No Contact w/someone who lives/traveled outside [place] past 30 days?: No Exposure to someone with infectious disease in past 14 days?: No Do you have a fever (greater than 100.4 F or 38 C)?: No Have you tested positive for COVID-19?: No Exposed to someone with COVID-19 in past 14 days?: No Do you have a sore throat?: No Do you have a cough?: No Do you have any weakness?: No Do you have any diarrhea?: No Are you experiencing any unusual bleeding?: No Do you have any muscle aches/pain?: No Do you have any abdominal pain?: No Are you experiencing loss of taste or smell?: No Other 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 Have you received the Flu Vaccine for this season: No Have you received the Pneumonia Vaccine: No ROS Obtained: Yes Systems reviewed as appropriate & no additional complaints except as documented Physical Exam General General appearance: alert and in no apparent distress Head Head exam: atraumatic Eye Eye exam: Present normal appearance ENT ENT exam: Present normal external ear exam Neck Neck exam: Present full ROM Chest Chest inspection: Present symmetric chest wall rise Respiratory Respiratory exam: Present normal lung sounds bilaterally; Absent respiratory distress Cardiovascular Cardiovascular exam: Present regular rate and normal rhythm Abdominal Exam Abdominal exam: Present soft; Absent tenderness or guarding Extremities Exam Extremities exam: Present normal inspection Back Exam Back exam: Present normal inspection Neurological Exam Neurological exam: Present alert and oriented X3 Psychiatric Psychiatric exam: Present normal affect Skin Skin exam: Present warm, dry and rash (Chronic appearing erythematous rash to bilateral palms and dorsal hands) Medical Decision Making Medical Records Screening: Per USPSTF and CDC recommendations, given the prevalence of disease in our region, it is our hospital?s policy to screen for HIV and viral Hepatitis for all patients aged 18 and over and those with ongoing risk factors. Christopher Inquiry Pt receiving controlled substance: No Vital Signs: 10/25/24 19:54 10/25/24 20:04 Temperature 98.2 F 98.2 F Temperature Source Oral Oral Pulse Rate 90 Pulse Rate [Left] 90 Respiratory Rate 16 16 Blood Pressure 128/78 Blood Pressure [Right Arm] 128/78 Blood Pressure Mean [Right Arm] 94 02 Sat by Pulse Oximetry 97 Oxygen Delivery Method Room Air Room Air Orders (Tests/Meds): ED MEDICATIONS Discontinued Medications Generic Name Dose Route Start Last Admin Trade Name Freq PRN Reason Stop Dose Admin Prednisone 40 mg 10/25/24 20:02 Prednisone 20mg Tab PO 10/25/24 20:03 ONCE ONE Medical Decision Narrative: Lilia Rodriges is a 34-year-old female with a past medical history of atopic dermatitis followed by dermatology and Claire who presents to the emergency department for complaints of worsening of her atopic dermatitis to her hands. She states that she is new to the area and missed her last appointment with her rag cutting machine operator due to her daughter having an appointment at the same time. She states that they were not able to get her in for another 2 to 3 weeks. She states that she ran out of her triamcinolone cream last night and has had worsening pain in both of her hands since then consistent with her at opi dermatitis. Patient has no other complaints or concerns at this time. On arrival, patient is hemodynamically stable, no acute distress, breathing comfortably on room air with appropriate oxygen saturation. Physical exam, as stated above, reveals an overall well-appearing female. She has a rash to both of her hands consistent with atopic dermatitis. Lab work was considered, however given this is a chronic issue without changes from her baseline, this would not change ED management. Will administer a dose of prednisone here and send her on a prednisone taper as well as provide prescription for triamcinolone ointment. Patient is aware that long-term steroids are not good for her health and will follow-up closely with her primary care doctor and rag cutting machine operator. All questions were answered. She was then discharged from the emergency department in stable condition. Critical Care Critical Care Time Critical Care Time: No
[2024-10-25 20:04] VITALS: BP 128/78; PULSE 90; RESP 16; TEMP 36.8; O2SAT 97
== END 2024-10-25 20:14 | disposition home or self-care (01) ==
PROVIDERS: Emergency Provider Student in an Organized Health Care Education/Training Program
DX: L20.9 Atopic dermatitis, unspecified (principal)
CPT/HCPCS: 99283

== ENCOUNTER 2024-12-20 15:00 | Outpatient (CLI) | payer MEDICAID, SELFPAY ==
[2024-12-26 14:11] LABS: Atopobium vaginae NOTORDERABLE High - 2 Score (.); BVAB2 High - 2 Score (.); Candida albicans NAA Negative (Negative); Candida glabrata Negative (Negative); HSV 1 NAA Negative (Negative); HSV 2 NAA Negative (Negative)
== END 2024-12-20 23:59 | disposition home or self-care (01) ==
LOC: LAB.DROPOF 12-22 00:44
PROVIDERS: PCP Nurse Practitioner Obstetrics & Gynecology; Visit Provider Nurse Practitioner Obstetrics & Gynecology
DX: N89.8 Other specified noninflammatory disorders of vagina (principal)
CPT/HCPCS: 87491; 87529; 87591; 87661; 87798; 87801